=== PATIENT | female | born 1935 | race Hispanic/Latino ===

== ENCOUNTER 2017-09-06 23:05 | Inpatient (IN) | payer MEDICARE ==
[2017-09-06 23:12] VITALS: BMI 32.4
[2017-09-06] MEDS ORDERED: Sodium Chloride 0.9% 1,000 ML IV STA (23:28)
--- NOTE | 2017-09-06 23:29 | ED PDOC ---
Arrival/HPI - General Chief Complaint: Abdominal Pain Time Seen by Provider: 09/06/17 23:14 Historian: Patient - History of Present Illness Narrative History of Present Illness (Text): 09/06/17 23:28 Lola Hoffman is an 81 year old female, whose past medical history includes hypertension and hysterectomy, who presents to the Emergency department complaining of abdominal pain. Patient states she has been experiencing RUQ pain since 18:30 today. Patient denies any fever, chills, chest pain, shortness of breath, nausea, vomiting, diarrhea, urinary symptoms, back pain, neck pain, headache, dizziness, or any other complaints. PMD: Dr. Johnson Time/Duration: 4-6 hours (18:30) Symptom Onset: Gradual Symptom Course: Unchanged Activities at Onset: Light Context: Home Past Medical History - Provider Review Nursing Documentation Reviewed: Yes - Cardiac Hx Hypertension: Yes - Pulmonary Hx Respiratory Disorders: No - Neurological Hx Neurological Disorder: No - HEENT Hx HEENT Disorder: No - Renal Hx Renal Disorder: No - Endocrine/Metabolic Hx Endocrine Disorders: No - Hematological/Oncological Hx Blood Disorders: No - Integumentary Hx Dermatological Disorder: No - Musculoskeletal/Rheumatological Hx Musculoskeletal Disorders: No - Gastrointestinal Hx Gastrointestinal Disorders: No - Genitourinary/Gynecological Hx Genitourinary Disorders: No - Psychiatric Hx Psychophysiologic Disorder: No Hx Substance Use: No - Surgical History Hx Hysterectomy: Yes Other/Comment: cyst from ovary Family/Social History - Physician Review Nursing Documentation Reviewed: Yes Family/Social History: Unknown Family HX Smoking Status: Never Smoked Hx Alcohol Use: No Hx Substance Use: No Allergies/Home Meds Allergies/Adverse Reactions: Allergies alendronate sodium [From Fosamax] Allergy (Verified 09/06/17 23:22) VOMITING Home Medications: Home Meds Medication Instructions Recorded Confirmed Lisinopril [Zestril] 10 mg PO CONT 09/06/17 09/06/17 amLODIPine [Norvasc] 10 mg PO DAILY 09/06/17 09/06/17 Review of Systems - Physician Review All systems were reviewed & negative as marked: Yes - Review of Systems Constitutional: Normal. absent: Fevers Eyes: Normal ENT: Normal Respiratory: Normal. absent: SOB, Cough Cardiovascular: Normal. absent: Chest Pain Gastrointestinal: Abdominal Pain. absent: Vomiting Genitourinary Female: Normal. absent: Dysuria, Frequency, Hematuria, Urine Output Changes Musculoskeletal: Normal. absent: Back Pain, Neck Pain Skin: Normal. absent: Rash Neurological: Normal. absent: Headache, Dizziness Endocrine: Normal Hemo/Lymphatic: Normal Psychiatric: Normal Physical Exam Vital Signs Reviewed: Yes Vital Signs Temp Pulse Resp BP Pulse Ox 09/07/17 01:56 111 H 17 144/67 97 09/06/17 23:13 97.7 F 88 18 169/84 H 98 Temperature: Afebrile Blood Pressure: Hypertensive Pulse: Regular Respiratory Rate: Normal Appearance: Positive for: Well-Appearing, Non-Toxic, Comfortable Pain Distress: None Mental Status: Positive for: Alert and Oriented X 3 - Systems Exam Head: Present: Atraumatic, Normocephalic Pupils: Present: PERRL Extroacular Muscles: Present: EOMI Conjunctiva: Present: Normal Mouth: Present: Moist Mucous Membranes Neck: Present: Normal Range of Motion Respiratory/Chest: Present: Clear to Auscultation, Good Air Exchange. No: Respiratory Distress, Accessory Muscle Use Cardiovascular: Present: Regular Rate and Rhythm, Normal S1, S2. No: Murmurs Abdomen: Present: Tenderness (RUQ tenderness), Normal Bowel Sounds. No: Distention, Peritoneal Signs Back: Present: Normal Inspection Upper Extremity: Present: Normal Inspection. No: Cyanosis, Edema Lower Extremity: Present: Normal Inspection. No: Edema Neurological: Present: GCS=15, CN II-XII Intact, Speech Normal Skin: Present: Warm, Dry, Normal Color. No: Rashes Psychiatric: Present: Alert, Oriented x 3, Normal Insight, Normal Concentration Medical Decision Making ED Course and Treatment: 09/06/17 23:28 Impression: 81 year old female complaining of RUQ pain since 18:30. Differential Diagnosis included but are not limited to: cholecystitis vs. biliary colic vs. gastritis Plan: -- EKG -- CT Abdomen and Pelvis with IV contrast -- Labs, cardiac enzymes, lipase, blood cultures -- Urinalysis -- IV fluids -- Pepcid -- Protonix -- Zofran -- Reassess and disposition Progress Notes: 09/07/17 01:01 Reviewed EKG, sinus tachycardia at [address]pm[address] LAD. Non-specific ST/T wave changes. 09/07/17 02:54 CT Abdomen and Pelvis shows: Lower thorax: Minimal atelectasis/scarring. Coronary artery calcifications. Elevated RIGHT hemidiaphragm. Moderate-sized hiatal hernia. ABDOMEN: Liver: Probable mild fatty infiltration. Minimal intrahepatic ductal dilatation. Gallbladder and bile ducts: Gallbladder distention. Gallstone. Borderline dilatation of common bile duct. Pancreas: No ductal dilation. No mass. Spleen: No splenomegaly. Adrenals: No mass. Kidneys and ureters: Few probable renal cysts. Few too small to characterize lesions within kidneys. No hydronephrosis. Stomach and bowel: Apparent mild mural thickening of proximal duodenum. No associated inflammatory stranding. Duodenal diverticulum. diverticula within sigmoid colon. No associated inflammatory stranding. Mild mural thickening vs underdistention of ascending, transverse, descending, sigmoid colon. No associated inflammatory stranding. No obstruction. Appendix: No findings to suggest acute appendicitis. PELVIS: Bladder: Unremarkable. Reproductive: Hysterectomy. ABDOMEN and PELVIS: Intraperitoneal space: No significant fluid collection. No free air. Bones/joints: Degenerative changes and scoliosis of spine. Hemangioma within spine. No acute fracture. Soft tissues: Tiny umbilical hernia containing fat. Vasculature: [id number] atherosclerotic disease. No aneurysm. Lymph nodes: No pathologically enlarged lymph nodes. IMPRESSION: 1. Gallbladder distention with cholelithiasis. Minimal/borderline ductal dilatation. Suggest ultrasound. 2. Possible mild duodenitis. Clinical correlation is needed. 3. Mild colitis vs underdistention. Clinical correlation is needed. 4. Incidental/non-acute findings are described above. 09/07/17 03:[address] Gan, who is aware and agrees with plan. Accepts pt in to her service. Pt admitted to [facility] for cholecystitis Requests Dr. Cervantes on consult. residential building inspector notified. 09/07/17 03:12 Case discussed with surgical dental assistant medical receptionist, who is aware and agrees with plan. - Lab Interpretations Lab Results: 09/06/17 23:30 09/06/17 23:30 Lab Results 09/07/17 00:28: Urine Color Yellow, Urine Appearance Clear, Urine pH 7.0, Ur Specific [place] 1.015, Urine Protein Negative, Urine Glucose (UA) 100 H, Urine Ketones Trace H, Urine Blood Negative, Urine Nitrate Negative, Urine Bilirubin Negative, Urine Urobilinogen 2.0 H, Ur Leukocyte Esterase Negative 09/06/17 23:30: Sodium 142, Potassium 4.1, Chloride 104, Carbon Dioxide 23, Anion Gap 18, BUN 13, Creatinine 0.5 L, Est GFR ( Amer) > 60, Est GFR ( Non-Af Amer) > 60, Random Glucose 192 H, Calcium 9.5, Total Bilirubin 1.7 H, AST 191 H, ALT 138 H, Alkaline Phosphatase 227 H, Lactate Dehydrogenase 940 H, Total Creatine Kinase 40, Troponin I < 0.01, Total Protein 7.9, Albumin 4.5, Globulin 3.4, Albumin/Globulin Ratio 1.3, Amylase 115, Lipase 139 09/06/17 23:30: PT 10.9, INR 0.96, APTT 30.4 09/06/17 23:30: WBC 23.3 H, RBC 4.92, Hgb 14.9, Hct 44.5, MCV 90.4, MCH 30.3, MCHC 33.5, RDW 12.9, Plt Count 176, MPV 10.9, Gran % 58.6, Lymph % (Auto) 38.3 H , [place] % (Auto) 2.9, Eos % (Auto) 0.0 L, Baso % (Auto) 0.2, Gran # 13.62 H, Lymph # (Auto) 8.9 H, [place] # (Auto) 0.7 H, Eos # (Auto) 0.0, Baso # (Auto) 0.04 I have reviewed the lab results: Yes - RAD Interpretation Radiology Orders: 09/07/17 00:16 ABD & PELVIS IV CONTRAST ONLY [CT] Stat Supervising Law Enforcement Analyst: Radiologist - EKG Interpretation Interpreted by ED Physician: Yes Type: 12 lead EKG - Medication Orders Current Medication Orders: Acetaminophen (Tylenol 325mg Tab) 650 mg PO Q4H PRN PRN Reason: Fever >100.5 F Lactated Ringer's (Lactated Ringer's) 1,000 mls @ 100 mls/hr IV .Q10H MATEO Last Admin: 09/07/17 04:44 Dose: 100 mls/hr eMAR Start Stop Document 09/07/17 04:44 AP (Rec: 09/07/17 04:44 AP [email or web address]) Intravenous Solution Start Date 09/07/17 Start Time 04:44 Metronidazole (Flagyl) 250 mg in 50 mls @ 100 mls/hr IV Q8 MATEO PRN Reason: Protocol Stop: 09/12/17 14:01 Last Admin: 09/07/17 13:40 Dose: 100 mls/hr eMAR Start Stop Document 09/07/17 13:40 [facility] (Rec: 09/07/17 13:41 [facility] [id number]) Intravenous Solution Start Date 09/07/17 Start Time 14:30 End Date 09/07/17 End time 15:00 Total Infusion Time 30 Ceftriaxone Sodium (Rocephin 1 Gram Ivpb) 1 gm in 100 mls @ 100 mls/hr IVPB DAILY MATEO PRN Reason: Protocol Stop: 09/11/17 10:59 Last Admin: 09/07/17 13:18 Dose: 100 mls/hr eMAR Start Stop Document 09/07/17 13:18 [facility] (Rec: 09/07/17 13:19 [facility] [id number]) Intravenous Solution Start Date 09/07/17 Start Time 13:19 End Date 09/07/17 End time 14:30 Total Infusion Time 71 Morphine Sulfate (Morphine) 2 mg IVP Q4H PRN PRN Reason: Pain, moderate (4-7) Ondansetron HCl (Zofran Inj) 4 mg IVP Q4H PRN PRN Reason: Nausea/Vomiting Pantoprazole Sodium (Protonix Inj) 40 mg IVP DAILY [facility] Last Admin: 09/07/17 10:19 Dose: 40 mg IVP Administration Document 09/07/17 10:19 BIR (Rec: 09/07/17 10:19 [facility] [id number]) Charges for Administration # of IVP Administrations 1 Discontinued Medications Famotidine (Pepcid) 20 mg IVP STAT STA Stop: 09/06/17 23:29 Last Admin: 09/07/17 00:22 Dose: 20 mg IVP Administration Document 09/07/17 00:22 CNR (Rec: 09/07/17 00:22 CNR [facility] [id number]) Charges for Administration # of IVP Administrations 1 Sodium Chloride (Sodium Chloride 0.9%) 1,000 mls @ 100 mls/hr IV .Q10H STA Stop: 09/07/17 09:27 Last Admin: 09/07/17 00:21 Dose: 100 mls/hr eMAR Start Stop Document 09/07/17 00:21 CNR (Rec: 09/07/17 00:21 CNR [facility] [id number]) Intravenous Solution Start Date 09/07/17 Start Time 00:21 Metronidazole (Flagyl) 500 mg in 100 mls @ 100 mls/hr IVPB STAT STA PRN Reason: Protocol Stop: 09/07/17 01:52 Last Admin: 09/07/17 02:30 Dose: 100 mls/hr eMAR Start Stop Document 09/07/17 02:30 CNR (Rec: 09/07/17 02:30 CNR [facility] [id number]) Intravenous Solution Start Date 09/07/17 Start Time 02:30 End Date 09/07/17 End time 03:30 Total Infusion Time 60 Piperacillin Sod/Tazobactam Sod (Zosyn 3.375 In Ns 100ml) 100 mls @ 200 mls/hr IVPB STAT STA PRN Reason: Protocol Stop: 09/07/17 01:22 Last Admin: 09/07/17 01:21 Dose: 200 mls/hr eMAR Start Stop Document 09/07/17 01:21 CNR (Rec: 09/07/17 01:22 CNR [facility] [id number]) Intravenous Solution Start Date 09/07/17 Start Time 01:21 End Date 09/07/17 End time 01:51 Total Infusion Time 30 Piperacillin Sod/Tazobactam Sod (Zosyn 3.375 In Ns 100ml) 100 mls @ 200 mls/hr IVPB Q6 MATEO PRN Reason: Protocol Stop: 09/07/17 12:29 Last Admin: 09/07/17 13:11 Dose: 200 mls/hr eMAR Start Stop Document 09/07/17 13:11 BIR (Rec: 09/07/17 13:12 BIR [id number]) Intravenous Solution Start Date 09/07/17 Start Time 13:12 End Date 09/07/17 Morphine Sulfate (Morphine) 2 mg IVP STAT STA Stop: 09/07/17 00:54 Last Admin: 09/07/17 01:20 Dose: 2 mg IVP Administration Document 09/07/17 01:20 CNR (Rec: 09/07/17 01:21 CNR [facility] [id number]) Charges for Administration # of IVP Administrations 1 Morphine Sulfate (Morphine) 2 mg IVP Q4H PRN PRN Reason: Pain, moderate (4-7) Ondansetron HCl (Zofran Inj) 4 mg IVP STAT STA Stop: 09/06/17 23:29 Last Admin: 09/07/17 00:22 Dose: 4 mg IVP Administration Document 09/07/17 00:22 CNR (Rec: 09/07/17 00:22 CNR [facility] [id number]) Charges for Administration # of IVP Administrations 1 Pantoprazole Sodium (Protonix Inj) 40 mg IVP ONCE STA Stop: 09/06/17 23:30 Last Admin: 09/07/17 00:21 Dose: 40 mg IVP Administration Document 09/07/17 00:21 CNR (Rec: 09/07/17 00:22 CNR [facility] [id number]) Charges for Administration # of IVP Administrations 1 - Scribe Statement The provider has reviewed the documentation as recorded by the Yaakov Lugo Provider Scribe Attestation: All medical record entries made by the Scribe were at my direction and personally dictated by me. I have reviewed the chart and agree that the record accurately reflects my personal performance of the history, physical exam, medical decision making, and the department course for this patient. I have also personally directed, reviewed, and agree with the discharge instructions and disposition. Disposition/Present on Arrival - Present on Arrival Any Indicators Present on Arrival: No History of DVT/PE: No History of Uncontrolled Diabetes: No Urinary Catheter: No History of Decub. Ulcer: No History Surgical Site Infection Following: None - Disposition Have Diagnosis and Disposition been Completed?: Yes Diagnosis: Cholecystitis with cholelithiasis Disposition: HOSPITALIZED Disposition Time: 03:10 Condition: FAIR
[2017-09-06 23:54] LABS: BASO # 0.04 K/mm3 (0.0-2.0); BASO % 0.2 % (0.0-3.0); GRAN # 13.62 (1.4-6.5); GRAN % 58.6 % (50.0-68.0); HEMOGLOBIN 14.9 g/dL (12.0-16.0); LYMPH # 8.9 (1.2-3.4); LYMPH % 38.3 % (22.0-35.0); MEAN CELL VOLUME 90.4 fl (80.0-105.0); MEAN CORPUSCULAR HEMOGLOBIN 30.3 pg (25.0-35.0); MEAN CORPUSCULAR HGB CONC 33.5 g/dl (31.0-37.0); MEAN PLATELET VOLUME 10.9 fl (7.0-11.0); MONO # 0.7 (0.1-0.6); MONO % 2.9 % (1.0-6.0); RBC 4.92 10^6/uL (3.5-6.1); RED CELL DISTRIBUTION WIDTH 12.9 % (11.5-14.5); WHITE BLOOD COUNT 23.3 10^3/ul (4.5-11.0)
[2017-09-07 00:06] LABS: PROTHROMBIN TIME 10.9 SECONDS (9.4-12.5)
[2017-09-07 00:07] LABS: INR 0.96 (0.93-1.08); PARTIAL THROMBOPLASTIN TIME 30.4 Seconds (25.1-36.5)
[2017-09-07 00:15] LABS: ALB/GLOB RATIO 1.3 (1.1-1.8); ALBUMIN 4.5 g/dL (3.0-4.8); ALT/SGPT 138 U/L (7-56); AMYLASE 115 U/L (35-125); AST/SGOT 191 U/L (14-36); BLOOD UREA NITROGEN 13 mg/dL (7-21); CALCIUM 9.5 mg/dL (8.4-10.5); GFR AFRICAN-AMERICAN > 60; GFR NON-AFRICAN AMERICAN > 60; LIPASE 139 U/L (23-300)
[2017-09-07 00:20] LABS: TROPONIN I < 0.01 ng/mL
[2017-09-07] MEDS ORDERED: Iohexol 350 MG/100 ML VIAL ONE (00:49)
[2017-09-07] MEDS ORDERED: metroNIDAZOLE IV 500 mg/100 ml 500 MG/100 ML BAG IVPB STA (00:53)
[2017-09-07] MEDS ORDERED: Morphine 5 MG/ML SYRINGE IVP STA (00:53)
[2017-09-07] MEDS ORDERED: Piperacillin/Tazobact 3.375 gm 100 ML IVPB STA (00:53)
[2017-09-07 01:52] LABS: URINE BILIRUBIN NEGATIVE (NEGATIVE); URINE BLOOD NEGATIVE (NEGATIVE); URINE GLUCOSE (UA) 100 mg/dL (NEGATIVE); URINE LEUKOCYTE ESTERASE NEGATIVE Leu/uL (NEGATIVE); URINE NITRATE NEGATIVE (NEGATIVE); URINE PROTEIN NEGATIVE mg/dL (<30 mg/dL)
[2017-09-07 02:03] LABS: URINE COLOR YELLOW (YELLOW)
[2017-09-07 02:04] LABS: URINE APPEARANCE CLEAR (CLEAR)
--- NOTE | 2017-09-07 02:37 | CT ---
EXAM: CT Abdomen and Pelvis With Intravenous Contrast CLINICAL HISTORY: 81 years old, female; Pain; Abdominal pain; Epigastric; Patient HX: HX of gallstones; Additional info: Ruq pain TECHNIQUE: Axial computed tomography images of the abdomen and pelvis with intravenous contrast. All CT scans at this facility use one or more dose reduction techniques, viz.: automated exposure control; ma/kV adjustment per patient size (including targeted exams where dose is matched to indication; i.e. head); or iterative reconstruction technique. Coronal and sagittal reformatted images were created and reviewed. CONTRAST: 100 mL of omnipaque 350 administered intravenously. COMPARISON: US - RENAL 2015-12-12 16:09 FINDINGS: Lower thorax: Minimal atelectasis/scarring. Coronary artery calcifications. Elevated RIGHT hemidiaphragm. Moderate-sized hiatal hernia. ABDOMEN: Liver: Probable mild fatty infiltration. Minimal intrahepatic ductal dilatation. Gallbladder and bile ducts: Gallbladder distention. Gallstone. Borderline dilatation of common bile duct. Pancreas: No ductal dilation. No mass. Spleen: No splenomegaly. Adrenals: No mass. Kidneys and ureters: Few probable renal cysts. Few too small to characterize lesions within kidneys. No hydronephrosis. Stomach and bowel: Apparent mild mural thickening of proximal duodenum. No associated inflammatory stranding. Duodenal diverticulum. diverticula within sigmoid colon. No associated inflammatory stranding. Mild mural thickening vs underdistention of ascending, transverse, descending, sigmoid colon. No associated inflammatory stranding. No obstruction. Appendix: No findings to suggest acute appendicitis. PELVIS: Bladder: Unremarkable. Reproductive: Hysterectomy. ABDOMEN and PELVIS: Intraperitoneal space: No significant fluid collection. No free air. Bones/joints: Degenerative changes and scoliosis of spine. Hemangioma within spine. No acute fracture. Soft tissues: Tiny umbilical hernia containing fat. Vasculature: [id number] atherosclerotic disease. No aneurysm. Lymph nodes: No pathologically enlarged lymph nodes. IMPRESSION: 1. Gallbladder distention with cholelithiasis. Minimal/borderline ductal dilatation. Suggest ultrasound. 2. Possible mild duodenitis. Clinical correlation is needed. 3. Mild colitis vs underdistention. Clinical correlation is needed. 4. Incidental/non-acute findings are described above.
[2017-09-07] MEDS ORDERED: Sodium Chloride 0.9% 1,000 ML IV STA (03:11)
[2017-09-07] MEDS ORDERED: Morphine 5 MG/ML SYRINGE IVP PRN (03:12)
--- NOTE | 2017-09-07 04:04 | US ---
EXAM: US Abdomen Complete CLINICAL HISTORY: 81 years old, female; Pain; Abdominal pain; Other: Ruq; Additional info: Cholelithiasis, ruq abdominal pain TECHNIQUE: Real-time ultrasound of the abdomen (complete) with image documentation. COMPARISON: US - RENAL 2015-12-12 16:09Liver: Fatty infiltration. FINDINGS: Liver: Fatty infiltration. No mass. No intrahepatic ductal dilatation. Gallbladder: Gallstone. 0.4 cm wall thickness. Minimal pericholecystic fluid. No sonographic Lambert's sign. Common bile duct: No dilatation. No stones. Pancreas: Unremarkable as visualized. Kidneys: Normal echogenicity. Few cysts, largest up to 4.2 cm. No hydronephrosis. Spleen: No splenomegaly. Aorta: Obscured by overlying bowel gas. Inferior vena cava: Unremarkable. IMPRESSION: 1. Cholelithiasis with mild gallbladder wall thickening and minimal pericholecystic fluid concerning for acute cholecystitis. Clinical correlation is needed. Consider scintigraphy. 2. Incidental/non-acute findings are described above.
--- NOTE | 2017-09-07 04:06 | CP.PCM.CON ---
History of Present Illness - History of Present Illness History of Present Illness: Patient is an 81F with PMH of HTN, HLD, and osteoporosis and PSH of hysterectomy and oopherectomy who presented to ED with BL upper abdominal pain, nausea and vomiting several hours in duration with witnessed episode of non- bilious emesis in the ER. Pain is described as cramping gas pain with associated right mid-back pain. Patient states it started shortly after eating greasy food. Patient denies hematemesis, melena, hematochezia, diarrhea, fevers , chills, SOB, CP, dysuria, or hematuria. Patient had 3 regular BM's yesterday though she normally is constipated with 1-2BM's per week. Patient states this is the first time she has had these symptoms but she had an ultrasound in the past that showed an asymptomatic small gallbladder stone. Patient denies any abdominal pain, nausea, or vomiting currently after morphine, zofran, pepcid, and protonix administration. Review of Systems - Review of Systems All systems: reviewed and no additional remarkable complaints except Past Patient History - Past Medical History & Family History Past Medical History?: Yes - Past Social History Smoking Status: Never Smoked - CARDIAC Hx Hypercholesterolemia: Yes Hx Hypertension: Yes - PULMONARY Hx Respiratory Disorders: No - NEUROLOGICAL Hx Neurological Disorder: No - HEENT Hx HEENT Problems: No - RENAL Hx Chronic Kidney Disease: No - ENDOCRINE/METABOLIC Hx Endocrine Disorders: No - HEMATOLOGICAL/ONCOLOGICAL Hx Blood Disorders: No - INTEGUMENTARY Hx Dermatological Problems: No - MUSCULOSKELETAL/RHEUMATOLOGICAL Hx Musculoskeletal Disorders: No Hx Osteoporosis: Yes - GASTROINTESTINAL Hx Gastrointestinal Disorders: No - GENITOURINARY/GYNECOLOGICAL Hx Genitourinary Disorders: Yes Other/Comment: ovarian cyst - PSYCHIATRIC Hx Psychophysiologic Disorder: No Hx Substance Use: No - SURGICAL HISTORY Hx Surgeries: Yes Hx Breast Biopsy: Yes Hx Hysterectomy: Yes Other/Comment: BL oopherectomy Meds Allergies/Adverse Reactions: Allergies Allergy/AdvReac Type Severity Reaction Status Date / Time alendronate sodium Allergy VOMITING Verified 09/06/17 23:22 [From Fosamax] - Medications Medications: Current Medications Acetaminophen (Tylenol 325mg Tab) 650 mg PO Q4H PRN PRN Reason: Fever >100.5 F Sodium Chloride (Sodium Chloride 0.9%) 1,000 mls @ 100 mls/hr IV .Q10H STA Stop: 09/07/17 09:27 Last Admin: 09/07/17 00:21 Dose: 100 mls/hr Sodium Chloride (Sodium Chloride 0.9%) 1,000 mls @ 100 mls/hr IV .Q10H STA Stop: 09/07/17 13:10 Morphine Sulfate (Morphine) 2 mg IVP Q4H PRN PRN Reason: Pain, moderate (4-7) Ondansetron HCl (Zofran Inj) 4 mg IVP Q4H PRN PRN Reason: Nausea/Vomiting Physical Exam - Constitutional Appears: Well, No Acute Distress - Head Exam Head Exam: ATRAUMATIC, NORMOCEPHALIC - Eye Exam Eye Exam: Normal appearance. absent: Conjunctival injection, Scleral icterus - ENT Exam ENT Exam: Mucous Membranes Moist, Normal Oropharynx - Respiratory Exam Respiratory Exam: Clear to Auscultation Bilateral, NORMAL BREATHING PATTERN. absent: Accessory Muscle Use - Cardiovascular Exam Cardiovascular Exam: RRR - GI/Abdominal Exam GI & Abdominal Exam: Soft. absent: Distended, Rebound, Tenderness Additional comments: negative hinton's sign - Extremities Exam Extremities exam: Positive for: pedal pulses present. Negative for: calf tenderness, pedal edema - Neurological Exam Neurological exam: Alert, Oriented x3 - Psychiatric Exam Psychiatric exam: Normal Affect, Normal Mood - Skin Skin Exam: Dry, Intact, Normal Color, Warm Results - Vital Signs Recent Vital Signs: Last Vital Signs Temp 97.7 F 09/06/17 23:13 Pulse 111 H 09/07/17 01:56 Resp 17 09/07/17 01:56 BP 144/67 09/07/17 01:56 Pulse Ox 97 09/07/17 01:56 - Labs Result Diagrams: 09/06/17 23:30 09/06/17 23:30 - Imaging and Cardiology CT scan - abdomen Status: Image reviewed by me, Report reviewed by me US - abdomen Status: Image reviewed by me, Report reviewed by me Assessment & Plan - Assessment and Plan (Free Text) Assessment: 81F with acute cholecystitis, r/o choledocholithiasis -Abd US: small amount of pericholecystic fluid, mild wall thickening, large gallstone, CBD wnl -CT abd/pelvis: distended gallbladder with large stone, mild gastritis/ duodenitis, possible colitis -T Bili 1.7, AST 197, ALT 138, Alk phos: 227 Plan: -Repeat CBC/CMP this AM -possible MRCP to r/o choledocholithiaisis -NPO -IVF -PRN pain and nausea medications -IV abx -SCD's, incentive spirometer Further recommendations per Dr. Billy Mccord PGY2
[2017-09-07] MEDS: Lactated Ringer's 1,000 ML IV SCH ×2 (04:44→21:51)
[2017-09-07] MEDS: Piperacillin/Tazobact 3.375 gm 100 ML IVPB SCH ×2 (05:05→13:11)
[2017-09-07 07:49] LABS: BASO # 0.02 K/mm3 (0.0-2.0); BASO % 0.1 % (0.0-3.0); GRAN # 17.63 (1.4-6.5); GRAN % 68.6 % (50.0-68.0); HEMOGLOBIN 12.7 g/dL (12.0-16.0); LYMPH % 27.3 % (22.0-35.0); MEAN CELL VOLUME 90.2 fl (80.0-105.0); MEAN CORPUSCULAR HEMOGLOBIN 29.7 pg (25.0-35.0); MEAN CORPUSCULAR HGB CONC 32.9 g/dl (31.0-37.0); MEAN PLATELET VOLUME 9.8 fl (7.0-11.0); RBC 4.28 10^6/uL (3.5-6.1)
[2017-09-07 07:57] LABS: WHITE BLOOD COUNT 25.7 10^3/ul (4.5-11.0)
[2017-09-07 08:02] LABS: ALB/GLOB RATIO 1.3 (1.1-1.8); ALBUMIN 3.5 g/dL (3.0-4.8); ALT/SGPT 280 U/L (7-56); AST/SGOT 406 U/L (14-36); BLOOD UREA NITROGEN 10 mg/dL (7-21); CALCIUM 8.8 mg/dL (8.4-10.5); GFR AFRICAN-AMERICAN > 60; GFR NON-AFRICAN AMERICAN > 60; MAGNESIUM 1.9 mg/dL (1.7-2.2)
--- NOTE | 2017-09-07 10:21 | RAD ---
PROCEDURE: CHEST RADIOGRAPH, 1 VIEW HISTORY: pain COMPARISON: None available. FINDINGS: LUNGS: Clear. PLEURA: No pneumothorax or pleural fluid seen. CARDIOVASCULAR: Normal. OSSEOUS STRUCTURES: No significant abnormalities. VISUALIZED UPPER ABDOMEN: Normal. OTHER FINDINGS: None. IMPRESSION: No active disease.
--- NOTE | 2017-09-07 13:14 | CP.PCM.PCO ---
Physician Communication Note - Physician Communication Note Physician Communication Note: Severe PUD/HIDA-MRCP pending/Cons Rx for now
[2017-09-07] MEDS: cefTRIAXone 1 gm 1 GM/100 ML BAG IVPB SCH (13:18)
[2017-09-07] MEDS: metroNIDAZOLE IV 250mg/50 ml 250 MG/50 ML BAG IV SCH ×2 (13:40→21:51)
--- NOTE | 2017-09-07 13:43 | MRI ---
PROCEDURE: Magnetic Resonance Cholangiopancreatography HISTORY: Rule out common duct stone COMPARISON: None available. TECHNIQUE: Multiplanar, multisequence MR images of the abdomen were obtained, including heavily T2 weighted MRCP images of the biliary system. Rotating maximum intensity projection images of the biliary system were generated. FINDINGS: MRCP: The common bile duct is of a normal caliber. No evidence of choledocholithiasis. No intrahepatic biliary ductal dilatation. LIVER: Mild fatty infiltration of the liver GALLBLADDER: There is a large 17 mm gallstone. There is some fluid surrounding the gallbladder. Findings are suspicious for cholecystitis. SPLEEN: Unremarkable. PANCREAS: Unremarkable. ADRENALS: Unremarkable. KIDNEYS: Unremarkable. AORTA: No aneurysm. ASCITES: None. OTHER FINDINGS: None. IMPRESSION: Large gallstone with fluid surrounding the gallbladder suspicious for cholecystitis. No evidence of common duct stone
--- NOTE | 2017-09-07 16:14 | NM ---
PROCEDURE: Nuclear Medicine Hepatobiliary Scan HISTORY: r/o cystic duct obstruction COMPARISON: None available. TECHNIQUE: 5.0 mCi of technetium 99m Mebrofenin was administered intravenously. Planar images of the abdomen were obtained at 5 min intervals to 60 mins. Delayed images were also obtained. FINDINGS: LIVER: Timely and homogenous uptake. There is no biliary excretion. The common duct is not visualized and there is no visualization of the small bowel. The findings are suspicious for hepatocellular disease. The MRCP study obtained on the same day showed no evidence of common duct obstruction or biliary dilatation IMPRESSION: Nonvisualization of the biliary ducts most likely due to hepatocellular disease
[2017-09-07] MEDS ORDERED: Morphine 2 mg/ml ISec IVP PRN (17:34)
--- NOTE | 2017-09-07 18:08 | CARD ---
APPROVED REPORT EKG Measurement Heart [id number] <Conclusion> Sinus tachycardia Left axis deviation Low voltage QRS Inferior infarct, age undetermined Cannot rule out Anterior infarct, age undetermined Abnormal ECG
--- NOTE | 2017-09-07 23:38 | HP ---
HISTORY OF PRESENT ILLNESS: The patient is 81 years old. The patient of Dr. Johnson. She states yesterday morning she woke up with pain extending from her epigastrium down to the midabdomen. She felt nauseous, vomited twice. She states she never experienced this pain, so she ended up coming to the hospital for further evaluation. She vomited once in the emergency room also. Denies any fever or chills. No hemoptysis. No hematemesis. No rectal bleeding. Denies any chest pain. No shortness of breath. PAST MEDICAL HISTORY: Significant for; 1. Hypertension. 2. Hyperlipidemia. PAST SURGICAL HISTORY: Significant for hysterectomy and oophorectomy. ALLERGIES: SHE IS ALLERGIC TO ALENDRONATE. MEDICATIONS AT HOME: She is on amlodipine 10 mg daily and lisinopril 10 mg daily. SOCIAL HISTORY: She lives with her family. Denies smoking, drinking or alcohol use. REVIEW OF SYSTEMS: Currently, she complains of feeling thirsty and wants to eat something. PHYSICAL EXAMINATION: GENERAL: She is awake, alert, oriented, communicative. VITAL SIGNS: She is afebrile, pulse 114, respirations 20, blood pressure 149/76. LUNGS: Bilateral fair airflow. No rhonchi or crackle. HEART: S1, S2 audible. ABDOMEN: Soft. No rebound or guarding. NEUROLOGICAL: The patient is awake and alert. Able to communicate. LABORATORY EXAM: WBC is 25.7, hemoglobin 12.7, hematocrit 38.6, platelet 180. Chemistry: Sodium 143, potassium 3.9, chloride 109, CO2 of 22, BUN 10, creatinine 0.6, blood sugar of 173. Her AST 406, ALT 280, alk phos is 174. She had abdominal sonogram done that shows cholelithiasis with mild gallbladder wall thickening and minimal pericholecystic fluid, concerning acute cholecystitis. She had CT scan of the abdomen and pelvis done that shows ascending gallbladder with cholelithiasis, possible mild duodenitis. MRCP is pending. X-ray chest is negative. ASSESSMENT: 1. Acute cholecystitis. 2. Cholelithiasis. 3. Hypertension. 4. Hyperlipidemia. PLAN: We will keep the patient n.p.o., given her IV fluid, IV antibiotic. I will consult Dr. Bradford and Dr. Eleazar Cervantes has been consulted. Awaiting HIDA scan to decide further. The patient is eventually going to need cholecystectomy. Lillian Gan MD
[2017-09-08] MEDS: Lactated Ringer's 1,000 ML IV SCH ×2 (00:45→21:42)
[2017-09-08] MEDS: metroNIDAZOLE IV 250mg/50 ml 250 MG/50 ML BAG IV SCH ×3 (05:19→21:40)
--- NOTE | 2017-09-08 07:15 | CP.PCM.CON ---
<Lala Soto - Last Filed: 09/08/17 14:23> History of Present Illness - History of Present Illness History of Present Illness: Gi consult note for Dr Bradford's service Reason for consult: Cholelithiasis Patient is an 81 y/o with pmh of htn, hld and osteoporosis who presented with bilateral upper quadrant abdominal pain, nausea and vomiting on Thursday. GI is being consulted to rule out choledocholithiasis. Patient states the abdominal pain started on Thursday while she was sitting down. Denies prior histories of similar pain. States the pain was constant, located on bilateral upper quadrant of the abdomen and was radiating to the chest. Though it was [place], thus patient took 2 tabs of asa with no relief. States she vomited twice on Thursday prior to presenting to the ED, it was non bloody and non bilious. Denies fever or chills. No vomiting since admission. States she has chronic constipation, since childhood, has bowel movement once a week. Never used laxatives, and denies straining. Patient states she has never had colonoscopy or EGD. Currently the abdominal pain has improved, no nausea, vomiting or diarrhea. No fever or chills. Denies recent weight loss. Denies prior history of liver disease. States she was told she had gallbladder stone 2 years ago. PMHx: htn, hld and osteoporosis PSHx: Ovarian cyst removal, hysterectomy FMHx: sister with breast cancer, brothers with CAD Social: Denies tobacco, alcohol or illicit drug use. Allergy: alendronate hOME MEDS: ASA, lisinopril, Norvasc ad crestor. Review of Systems - Review of Systems All systems: reviewed and no additional remarkable complaints except Review of Systems: 12 point ROS reviewed, all negative except as per HPI. Past Patient History - Past Medical History & Family History Past Medical History?: Yes - Past Social History Smoking Status: Never Smoked Alcohol: None Drugs: Denies Home Situation {Lives}: Alone - CARDIAC Hx Hypertension: Yes - PULMONARY Hx Respiratory Disorders: No - NEUROLOGICAL Hx Neurological Disorder: No - HEENT Hx HEENT Problems: No - RENAL Hx Chronic Kidney Disease: No - ENDOCRINE/METABOLIC Hx Endocrine Disorders: No - HEMATOLOGICAL/ONCOLOGICAL Hx Blood Disorders: No - INTEGUMENTARY Hx Dermatological Problems: No - MUSCULOSKELETAL/RHEUMATOLOGICAL Hx Musculoskeletal Disorders: No - GASTROINTESTINAL Hx Gastrointestinal Disorders: No - GENITOURINARY/GYNECOLOGICAL Hx Genitourinary Disorders: No - PSYCHIATRIC Hx Psychophysiologic Disorder: No Hx Substance Use: No - SURGICAL HISTORY Hx Hysterectomy: Yes Other/Comment: cyst from ovary Meds Allergies/Adverse Reactions: Allergies Allergy/AdvReac Type Severity Reaction Status Date / Time alendronate sodium Allergy VOMITING Verified 09/06/17 23:22 [From Fosamax] - Medications Medications: Current Medications Acetaminophen (Tylenol 325mg Tab) 650 mg PO Q4H PRN PRN Reason: Fever >100.5 F Last Admin: 09/07/17 23:25 Dose: 650 mg Lactated Ringer's (Lactated Ringer's) 1,000 mls @ 100 mls/hr IV .Q10H [facility] Last Admin: 09/08/17 00:45 Dose: 100 mls/hr Metronidazole (Flagyl) 250 mg in 50 mls @ 100 mls/hr IV Q8 [facility] PRN Reason: Protocol Stop: 09/12/17 14:01 Last Admin: 09/08/17 05:19 Dose: 100 mls/hr Ceftriaxone Sodium (Rocephin 1 Gram Ivpb) 1 gm in 100 mls @ 100 mls/hr IVPB DAILY [facility] PRN Reason: Protocol Stop: 09/11/17 10:59 Last Admin: 09/07/17 13:18 Dose: 100 mls/hr Morphine Sulfate (Morphine) 2 mg IVP Q4H PRN PRN Reason: Pain, moderate (4-7) Ondansetron HCl (Zofran Inj) 4 mg IVP Q4H PRN PRN Reason: Nausea/Vomiting Pantoprazole Sodium (Protonix Inj) 40 mg IVP DAILY [facility] Last Admin: 09/07/17 10:19 Dose: 40 mg Physical Exam - Constitutional Appears: No Acute Distress - Head Exam Head Exam: ATRAUMATIC, NORMAL INSPECTION, NORMOCEPHALIC - Eye Exam Eye Exam: EOMI, Normal appearance, PERRL. absent: Scleral icterus Pupil Exam: NORMAL ACCOMODATION - ENT Exam ENT Exam: Mucous Membranes Moist - Neck Exam Neck exam: Positive for: Normal Inspection - Respiratory Exam Respiratory Exam: Clear to Auscultation Bilateral, NORMAL BREATHING PATTERN. absent: Rales, Rhonchi, Wheezes, Respiratory Distress, Stridor - Cardiovascular Exam Cardiovascular Exam: REGULAR RHYTHM, RRR, +S1, +S2. absent: Systolic Murmur - GI/Abdominal Exam GI & Abdominal Exam: Normal Bowel Sounds, Soft. absent: Distended, Firm, Guarding, Mass, Rebound, Rigid, Tenderness Additional comments: + Obese abdomen. - Extremities Exam Extremities exam: Positive for: normal inspection. Negative for: pedal edema, tenderness - Back Exam Back exam: NORMAL INSPECTION - Neurological Exam Neurological exam: Alert, Oriented x3 - Psychiatric Exam Psychiatric exam: Normal Affect, Normal Mood - Skin Skin Exam: Dry, Intact, Normal Color, Warm Results - Vital Signs Recent Vital Signs: Last Vital Signs Temp 99.7 F H 09/07/17 16:00 Pulse 94 H 09/07/17 16:00 Resp 19 09/07/17 16:00 BP 125/69 09/07/17 16:00 Pulse Ox 96 09/07/17 16:00 - Labs Result Diagrams: 09/08/17 07:30 09/08/17 07:30 Labs: Laboratory Results - last 24 hr 09/07/17 09/07/17 07:30 07:30 WBC 25.7 H* RBC 4.28 Hgb 12.7 D Hct 38.6 MCV 90.2 MCH 29.7 MCHC 32.9 RDW 13.0 Plt Count 180 MPV 9.8 Gran % 68.6 H Lymph % (Auto) 27.3 Stearns % (Auto) 4.0 Eos % (Auto) 0.0 L Baso % (Auto) 0.1 Gran # 17.63 H Lymph # (Auto) 7.0 H Stearns # (Auto) 1.0 H Eos # (Auto) 0.0 Baso # (Auto) 0.02 Sodium 143 Potassium 3.9 Chloride 109 H Carbon Dioxide 22 Anion Gap 16 BUN 10 Creatinine 0.6 L Est GFR ( Amer) > 60 Est GFR (Non-Af Amer) > 60 Random Glucose 173 H Calcium 8.8 Phosphorus 2.7 Magnesium 1.9 Total Bilirubin 2.6 H AST 406 H D ALT 280 H Alkaline Phosphatase 174 H D Total Protein 6.2 Albumin 3.5 Globulin 2.7 Albumin/Globulin Ratio 1.3 Assessment & Plan - Assessment and Plan (Free Text) Assessment: Patient is an 81 y/o with pmh of htn, hld and osteoporosis who presented with right upper quadrant abdominal pain, nausea and vomiting and was found to have transaminitis and was found have cholelithiasis suspicious for cholecystitis. Patient initially had CT abdomen and pelvis revealing cholelithaisis, colitis and mild duodenitis, abdominal u/s with acute cholitis, MRCP with large 17 mm gallstone, with fluid surrounding gallbladder suspicious for cholecystitis. 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 1-Transaminitis r/o choledocholithiasis versus hepatocellular/viral hepatitis/ autoimmune hepatitis/pbc versus acute cholecystitis versus danelle's disease. 2-Abdominal pain likely due to above 3- SIRS 4- htn 5- hld Plan: - Although no choledocholithiasis on MRCP, transaminitis fluctuating and total bili trending upward to 4 makes it suspicious. - Continue with antibiotics ( on Rocephin and flagyl) - NPO past midnight for EUS/ERCP - Continue with pain management - Zofran prn for nausea/vomiting - On protonix for Gi prophylaxis. - IV hydration - Hep panel including anti smooth antibodies, anti mitochondrial antibodies, Immunoglobulins, ceruloplasmin and NASEEM are ordered. - Will follow clinical course. Patient seen, examined and case discussed with Gi fellow and Dr Bradford. - Date & Time Date: 09/08/17 Time: 07:00 <Javed Bradford - Last Filed: 09/08/17 21:58> Meds - Medications Medications: Current Medications Acetaminophen (Tylenol 325mg Tab) 650 mg PO Q4H PRN PRN Reason: Fever >100.5 F Last Admin: 09/08/17 09:23 Dose: 650 mg Lactated Ringer's (Lactated Ringer's) 1,000 mls @ 100 mls/hr IV .Q10H [facility] Last Admin: 09/08/17 21:42 Dose: 100 mls/hr Metronidazole (Flagyl) 250 mg in 50 mls @ 100 mls/hr IV Q8 [facility] PRN Reason: Protocol Stop: 09/12/17 14:01 Last Admin: 09/08/17 21:40 Dose: 100 mls/hr Ceftriaxone Sodium (Rocephin 1 Gram Ivpb) 1 gm in 100 mls @ 100 mls/hr IVPB DAILY [facility] PRN Reason: Protocol Stop: 09/11/17 10:59 Last Admin: 09/08/17 09:24 Dose: 100 mls/hr Morphine Sulfate (Morphine) 2 mg IVP Q4H PRN PRN Reason: Pain, moderate (4-7) Ondansetron HCl (Zofran Inj) 4 mg IVP Q4H PRN PRN Reason: Nausea/Vomiting Pantoprazole Sodium (Protonix Inj) 40 mg IVP DAILY [facility] Last Admin: 09/08/17 09:24 Dose: 40 mg Results - Vital Signs Recent Vital Signs: Last Vital Signs Temp 98.2 F 09/08/17 16:00 Pulse 91 H 09/08/17 16:00 Resp 20 09/08/17 16:00 BP 153/86 H 09/08/17 16:00 Pulse Ox 93 L 09/08/17 16:00 - Labs Result Diagrams: 09/08/17 07:30 09/08/17 07:30 Labs: Laboratory Results - last 24 hr 09/07/17 09/08/17 09/08/17 07:30 07:30 07:30 WBC 14.8 H D RBC 3.98 Hgb 11.8 L Hct 35.5 L MCV 89.2 MCH 29.6 MCHC 33.2 RDW 13.3 Plt Count 134 MPV 9.4 Sodium 142 Potassium 3.4 L Chloride 110 H Carbon Dioxide 23 Anion Gap 12 BUN 7 Creatinine 0.5 L Est GFR ( Amer) > 60 Est GFR (Non-Af Amer) > 60 Random Glucose 76 Calcium 8.8 Total Bilirubin 4.6 H AST 177 H D ALT 216 H Alkaline Phosphatase 167 H Total Protein 5.9 Albumin 3.1 Globulin 2.9 Albumin/Globulin Ratio 1.1 Hepatitis A IgM Ab Negative Hep Bs Antigen Negative Hep B Core IgM Ab Negative Hepatitis C Antibody Negative Attending/Attestation - Attestation I have personally seen and examined this patient.: Yes I have fully participated in the care of the patient.: Yes I have reviewed all pertinent clinical information: Yes Notes (Text): 09/08/17 21:57 81 year old female who presents with upper abdominal pain, elevated lfts, and cholelithiasis. 1. Abdominal pain 2. Cholelithiasis 3. Elevated LFTs Plan: -npo after MN for EUS +/- ERCP tomorrow -empiric antibitiocs -surgery following for possible cholecystitis -viral / autoimmune serologies / iron studies for eval for chronic liver disease -trend daily lfts
[2017-09-08 07:54] LABS: HEMOGLOBIN 11.8 g/dL (12.0-16.0); MEAN CELL VOLUME 89.2 fl (80.0-105.0); MEAN CORPUSCULAR HEMOGLOBIN 29.6 pg (25.0-35.0); MEAN CORPUSCULAR HGB CONC 33.2 g/dl (31.0-37.0); MEAN PLATELET VOLUME 9.4 fl (7.0-11.0); RBC 3.98 10^6/uL (3.5-6.1); RED CELL DISTRIBUTION WIDTH 13.3 % (11.5-14.5); WHITE BLOOD COUNT 14.8 10^3/ul (4.5-11.0)
[2017-09-08 09:08] LABS: ALB/GLOB RATIO 1.1 (1.1-1.8); ALBUMIN 3.1 g/dL (3.0-4.8); ALT/SGPT 216 U/L (7-56); AST/SGOT 177 U/L (14-36); BLOOD UREA NITROGEN 7 mg/dL (7-21); CALCIUM 8.8 mg/dL (8.4-10.5); GFR AFRICAN-AMERICAN > 60; GFR NON-AFRICAN AMERICAN > 60
[2017-09-08] MEDS: cefTRIAXone 1 gm 1 GM/100 ML BAG IVPB SCH (09:24)
--- NOTE | 2017-09-08 10:10 | CP.PCM.PCO ---
Physician Communication Note - Physician Communication Note Physician Communication Note: Dec WBC-NO Pain/HUNGRY-Starting Liquids
--- NOTE | 2017-09-08 10:46 | CP.PCM.PN ---
Subjective - Date & Time of Evaluation Date of Evaluation: 09/08/17 Time of Evaluation: 07:10 - Subjective Subjective: Patient seen and examined this AM. Patient denies any pain, nausea, vomiting, or any other symptoms. Patient's HIDA had no uptake in any of the biliary tree, and MRCP showed no obstruction. GI has been consulted. Objective - Vital Signs/Intake and Output Vital Signs (last 24 hours): Temp Pulse Resp BP Pulse Ox 99.1 F 81 20 134/73 93 L 09/08/17 08:12 09/08/17 08:12 09/08/17 08:12 09/08/17 08:12 09/08/17 08:12 Intake and Output: 09/08/17 09/08/17 06:59 18:59 Intake Total 0 Balance 0 - Medications Medications: Current Medications Acetaminophen (Tylenol 325mg Tab) 650 mg PO Q4H PRN PRN Reason: Fever >100.5 F Last Admin: 09/08/17 09:23 Dose: 650 mg Lactated Ringer's (Lactated Ringer's) 1,000 mls @ 100 mls/hr IV .Q10H [facility] Last Admin: 09/08/17 00:45 Dose: 100 mls/hr Metronidazole (Flagyl) 250 mg in 50 mls @ 100 mls/hr IV Q8 [facility] PRN Reason: Protocol Stop: 09/12/17 14:01 Last Admin: 09/08/17 05:19 Dose: 100 mls/hr Ceftriaxone Sodium (Rocephin 1 Gram Ivpb) 1 gm in 100 mls @ 100 mls/hr IVPB DAILY [facility] PRN Reason: Protocol Stop: 09/11/17 10:59 Last Admin: 09/08/17 09:24 Dose: 100 mls/hr Morphine Sulfate (Morphine) 2 mg IVP Q4H PRN PRN Reason: Pain, moderate (4-7) Ondansetron HCl (Zofran Inj) 4 mg IVP Q4H PRN PRN Reason: Nausea/Vomiting Pantoprazole Sodium (Protonix Inj) 40 mg IVP DAILY [facility] Last Admin: 09/08/17 09:24 Dose: 40 mg - Labs Labs: 09/08/17 07:30 09/08/17 07:30 PT 10.9 SECONDS (9.4-12.5) 09/06/17 23:30 INR 0.96 (0.93-1.08) 09/06/17 23:30 APTT 30.4 Seconds (25.1-36.5) 09/06/17 23:30 - Constitutional Appears: Well, Non-toxic, No Acute Distress - Head Exam Head Exam: ATRAUMATIC, NORMOCEPHALIC - Eye Exam Eye Exam: Normal appearance. absent: Scleral icterus - ENT Exam ENT Exam: Mucous Membranes Moist, Normal Oropharynx - Respiratory Exam Respiratory Exam: NORMAL BREATHING PATTERN. absent: Accessory Muscle Use, Respiratory Distress - Cardiovascular Exam Cardiovascular Exam: RRR - GI/Abdominal Exam GI & Abdominal Exam: Soft. absent: Distended, Tenderness, Rebound - Extremities Exam Extremities Exam: absent: Calf Tenderness, Pedal Edema, Tenderness - Neurological Exam Neurological Exam: Alert, Awake, Oriented x3 - Psychiatric Exam Psychiatric exam: Normal Affect, Normal Mood - Skin Skin Exam: Dry, Intact, Normal Color, Warm Assessment and Plan - Assessment and Plan (Free Text) Assessment: 81F with RUQ pain, elevated LFT's concerning for intrahepatic pathology vs acute cholecystitis Plan: -No indication for emergent surgery at this time -F/U GI recs--further surgical planning pending their evaluation -T. bili elevated to 4.6 up from 2.6, LFT's decreased mildly. Continue to trend CMP -WBC down trending--continue to monitor -Continue NPO -PRN pain and nausea medications -IVF -DVT ppx -Monitor vitals and exam closely Discussed with Dr. Cervantes, further recs per him Jannette Mccord, PGY2
[2017-09-08 13:02] LABS: HEPATITIS B SURFACE AG Negative (NEGATIVE)
[2017-09-08 13:08] LABS: HEPATITIS A IGM NEGATIVE (NEGATIVE); HEPATITIS B CORE AB NEGATIVE (NEGATIVE)
[2017-09-08 13:19] LABS: HEPATITIS C ANTIBODY NEGATIVE (NEGATIVE)
--- NOTE | 2017-09-08 23:29 | PN ---
DATE: SUBJECTIVE: The patient is 81 years old, seen and examined. States the pain is gone. No nausea, vomiting or diarrhea. No fever, no chills. PHYSICAL EXAMINATION: VITAL SIGNS: The patient is afebrile, pulse 81, respirations 20, blood pressure 134/73. LUNGS: Bilateral good airflow. No rhonchi or crackles. HEART: S1 and S2 audible. ABDOMEN: Soft, obese, nontender. No rebound. No guarding. NEUROLOGICAL: She is awake, alert, oriented, able to communicate. LABORATORY DATA: WBC 14.8, hemoglobin 11.8, hematocrit 35.5, platelets 134. Chemistry: Sodium 142, potassium 3.4, chloride 110, CO2 of 23, BUN 7, creatinine 0.5, blood sugar of 76. AST 177, ALT 216, alk phos 167. ASSESSMENT: 1. Cholelithiasis. 2. Abnormal liver function tests. 3. Hepatocellular disease. 4. Hypertension. 5. Non-visualization of biliary duct because of hepatocellular disease. PLAN: Discussed with Dr. Nolan. We will start patient on IV fluids. She is currently on IV antibiotics. Will be seen by Dr. Bradford, might need EUS. We will discuss with Dr. Bradford and follow up LFTs. Lillian Gan MD
[2017-09-09] MEDS: metroNIDAZOLE IV 250mg/50 ml 250 MG/50 ML BAG IV SCH ×3 (05:34→21:52)
[2017-09-09] MEDS: Lactated Ringer's 1,000 ML IV SCH (06:25)
[2017-09-09 06:37] LABS: BASO # 0.02 K/mm3 (0.0-2.0); BASO % 0.1 % (0.0-3.0); EOS # 0.2 (0.0-0.7); EOS % 1.2 % (1.5-5.0); GRAN # 6.23 (1.4-6.5); GRAN % 45.2 % (50.0-68.0); HEMOGLOBIN 12.7 g/dL (12.0-16.0); LYMPH # 6.5 (1.2-3.4); LYMPH % 46.9 % (22.0-35.0); MEAN CORPUSCULAR HEMOGLOBIN 29.6 pg (25.0-35.0); MEAN CORPUSCULAR HGB CONC 33.2 g/dl (31.0-37.0); MEAN PLATELET VOLUME 9.8 fl (7.0-11.0); MONO # 0.9 (0.1-0.6); MONO % 6.6 % (1.0-6.0); RBC 4.29 10^6/uL (3.5-6.1); RED CELL DISTRIBUTION WIDTH 13.5 % (11.5-14.5); WHITE BLOOD COUNT 13.8 10^3/ul (4.5-11.0)
[2017-09-09 07:48] LABS: ALB/GLOB RATIO 1.1 (1.1-1.8); ALBUMIN 3.2 g/dL (3.0-4.8); ALT/SGPT 200 U/L (7-56); AST/SGOT 157 U/L (14-36); BLOOD UREA NITROGEN 3 mg/dL (7-21); GFR AFRICAN-AMERICAN > 60; GFR NON-AFRICAN AMERICAN > 60
--- NOTE | 2017-09-09 08:02 | CP.PCM.PCO ---
Physician Communication Note - Physician Communication Note Physician Communication Note: EUS Today/WBC Lymph not PMN/LFT Rising
[2017-09-09] MEDS ORDERED: Iohexol 240 (50 ml) ONE (08:20)
[2017-09-09] MEDS: Potassium Chloride 20 MEQ in Lactated Ringer's 1,000 ML IV SCH (08:41)
[2017-09-09] MEDS: cefTRIAXone 1 gm 1 GM/100 ML BAG IVPB SCH (09:24)
--- NOTE | 2017-09-09 10:43 | CP.PCM.PN ---
<Sherrell Garcia - Last Filed: 09/09/17 12:34> Subjective - Date & Time of Evaluation Date of Evaluation: 09/09/17 Time of Evaluation: 10:40 - Subjective Subjective: GENERAL SURGERY CONSULT PROGRESS NOTE FOR DR. CERVANTES. Patient has been seen and examined at bedside. No overnight events reported. Patient denies any abdominal pain, fever, nausea, or vomiting. She is having flatus. Patient has had no bowel movement since admission. She states she normally has bowel movements once a week. She tolerated her clear liquid diet. Is aware of EUS this afternoon. Objective - Vital Signs/Intake and Output Vital Signs (last 24 hours): Temp Pulse Resp BP Pulse Ox 97.9 F 80 19 150/88 93 L 09/09/17 08:45 09/09/17 08:45 09/09/17 08:45 09/09/17 08:45 09/09/17 08:45 Intake and Output: 09/09/17 09/09/17 06:59 18:59 Intake Total 540 Balance 540 - Medications Medications: Current Medications Acetaminophen (Tylenol 325mg Tab) 650 mg PO Q4H PRN PRN Reason: Fever >100.5 F Last Admin: 09/08/17 23:28 Dose: 650 mg Metronidazole (Flagyl) 250 mg in 50 mls @ 100 mls/hr IV Q8 [facility] PRN Reason: Protocol Stop: 09/12/17 14:01 Last Admin: 09/09/17 05:34 Dose: 100 mls/hr Ceftriaxone Sodium (Rocephin 1 Gram Ivpb) 1 gm in 100 mls @ 100 mls/hr IVPB DAILY [facility] PRN Reason: Protocol Stop: 09/11/17 10:59 Last Admin: 09/09/17 09:24 Dose: 100 mls/hr Potassium Chloride 20 meq/ (Lactated Ringer's) 1,010 mls @ 100 mls/hr IV .Q10H6M [facility] Last Admin: 09/09/17 08:41 Dose: 100 mls/hr Morphine Sulfate (Morphine) 2 mg IVP Q4H PRN PRN Reason: Pain, moderate (4-7) Ondansetron HCl (Zofran Inj) 4 mg IVP Q4H PRN PRN Reason: Nausea/Vomiting Pantoprazole Sodium (Protonix Inj) 40 mg IVP DAILY [facility] Last Admin: 09/09/17 09:25 Dose: 40 mg - Labs Labs: 09/09/17 06:10 09/09/17 06:10 PT 10.9 SECONDS (9.4-12.5) 09/06/17 23:30 INR 0.96 (0.93-1.08) 09/06/17 23:30 APTT 30.4 Seconds (25.1-36.5) 09/06/17 23:30 - Additional Findings Additional findings: - Constitutional Appears: Well, Non-toxic, No Acute Distress - Head Exam Head Exam: ATRAUMATIC, NORMOCEPHALIC - Eye Exam Eye Exam: Normal appearance. absent: Scleral icterus - ENT Exam ENT Exam: Mucous Membranes Moist, Normal Oropharynx - Respiratory Exam Respiratory Exam: NORMAL BREATHING PATTERN. absent: Accessory Muscle Use, Respiratory Distress - Cardiovascular Exam Cardiovascular Exam: RRR - GI/Abdominal Exam GI & Abdominal Exam: Soft. absent: Distended, Tenderness, Rebound - Extremities Exam Extremities Exam: absent: Calf Tenderness, Pedal Edema, Tenderness - Neurological Exam Neurological Exam: Alert, Awake, Oriented x3 - Psychiatric Exam Psychiatric exam: Normal Affect, Normal Mood - Skin Skin Exam: Dry, Intact, Normal Color, Warm Assessment and Plan - Assessment and Plan (Free Text) Assessment: 81F with RUQ pain, elevated LFT's concerning for intrahepatic pathology vs acute cholecystitis Hepatitis Panel - NEGATIVE WBC - Downtrending T. Landon and Alk Phos - increasing AST/ALT - Decreasing Hypokalemia. Plan: -F/U EUS results. -F/U GI recs--further surgical planning pending their evaluation -Monitor WBC's -PRN pain and nausea medications -IVF -DVT ppx -Monitor vitals and exam closely -No indication for emergent surgery at this time Further Recs as per Dr. Cervantes. Sherrell Garcia, PGY1 <Eleazar Cervantes - Last Filed: 09/09/17 20:11> Objective - Vital Signs/Intake and Output Vital Signs (last 24 hours): Temp Pulse Resp BP Pulse Ox 98.6 F 71 16 149/75 98 09/09/17 15:39 09/09/17 15:39 09/09/17 15:39 09/09/17 15:39 09/09/17 15:39 Intake and Output: 09/09/17 09/10/17 18:59 06:59 Intake Total 0 Balance 0 - Medications Medications: Current Medications Acetaminophen (Tylenol 325mg Tab) 650 mg PO Q4H PRN PRN Reason: Fever >100.5 F Last Admin: 09/08/17 23:28 Dose: 650 mg Metronidazole (Flagyl) 250 mg in 50 mls @ 100 mls/hr IV Q8 [facility] PRN Reason: Protocol Stop: 09/12/17 14:01 Last Admin: 09/09/17 14:14 Dose: 100 mls/hr Ceftriaxone Sodium (Rocephin 1 Gram Ivpb) 1 gm in 100 mls @ 100 mls/hr IVPB DAILY [facility] PRN Reason: Protocol Stop: 09/11/17 10:59 Last Admin: 09/09/17 09:24 Dose: 100 mls/hr Potassium Chloride 20 meq/ (Lactated Ringer's) 1,010 mls @ 100 mls/hr IV .Q10H6M [facility] Last Admin: 09/09/17 08:41 Dose: 100 mls/hr Morphine Sulfate (Morphine) 2 mg IVP Q4H PRN PRN Reason: Pain, moderate (4-7) Ondansetron HCl (Zofran Inj) 4 mg IVP Q4H PRN PRN Reason: Nausea/Vomiting Pantoprazole Sodium (Protonix Inj) 40 mg IVP DAILY [facility] Last Admin: 09/09/17 09:25 Dose: 40 mg - Labs Labs: 09/09/17 06:10 09/09/17 06:10 PT 10.9 SECONDS (9.4-12.5) 09/06/17 23:30 INR 0.96 (0.93-1.08) 09/06/17 23:30 APTT 30.4 Seconds (25.1-36.5) 09/06/17 23:30 Assessment and Plan - Assessment and Plan (Free Text) Assessment: ERCP-Stent : 0.5 cm CD Stone removed Await repeat LFT/Pancreatic function/Interval Cholecystectomy will be necessary- timing pending clinical outcome Steven Cervantes MD FACS
[2017-09-09] MEDS ORDERED: Indomethacin 50 MG Suppository PR ONE ×2 (12:06→12:45)
[2017-09-09] MEDS ORDERED: Lactated Ringer's 1,000 ML IV SCH ×2 (12:15→14:45)
[2017-09-09] MEDS ORDERED: Midazolam 2 MG/2 ML VIAL ONE (12:26)
[2017-09-09] MEDS ORDERED: Propofol 10 mg/ml Inj (20 ML) ONE (12:26)
[2017-09-09] MEDS ORDERED: Rocuronium 10 mg/ml (5 ml) ONE (12:27)
[2017-09-09] MEDS ORDERED: Neostigmine Methylsulfate 3mg/3ml Syringe IV ONE (12:40)
[2017-09-09] MEDS ORDERED: Glycopyrrolate 0.2 mg/ml (2ml vial) ONE (12:41)
[2017-09-09 12:56] LABS: HEPATITIS B SURFACE AG Negative (NEGATIVE)
[2017-09-09] MEDS ORDERED: Glucagon Recombinant 1 mg Inj ONE (12:59)
[2017-09-09 13:01] LABS: HEPATITIS B CORE AB NEGATIVE (NEGATIVE)
[2017-09-09 13:13] LABS: HEPATITIS C ANTIBODY NEGATIVE (NEGATIVE)
[2017-09-09 14:59] LABS: HEPATITIS A TOTAL Antibody Positive (NEGATIVE)
--- NOTE | 2017-09-09 16:16 | PN ---
DATE: SUBJECTIVE: The patient is 81-year-old, seen and examined, awaiting to have EUS done. Denies any chest pain or shortness of breath. She is n.p.o. No abdominal discomfort. No nausea or vomiting. PHYSICAL EXAMINATION: VITAL SIGNS: She is afebrile. Pulse 80, respirations 19, and blood pressure 150/88. LUNGS: Bilateral fair airflow. No rhonchi or crackles. HEART: S1 and S2 audible. ABDOMEN: Soft, obese, and nontender. Slight epigastric discomfort. No rebound or guarding. NEUROLOGICAL: She is awake, alert, oriented, communicative. LABORATORY DATA: WBC is 13.8, hemoglobin 12.7, hematocrit 38, and platelets 143. Chemistry: Sodium 144, potassium 3.4, chloride 110, CO2 of 24, BUN 3, creatinine 0.4, and blood sugar of 90. Total bilirubin 5.1. AST 157, ALT 200, and alk phos is 191. Hepatis profile is negative for hep A, B, and C. ASSESSMENT: 1. Abnormal liver function tests, etiology still unclear, rule out underlying malignancy versus acute cholecystitis. 2. Cholelithiasis. 3. Hypertension. 4. Morbid obesity. PLAN: The patient is awaiting EUS. We will continue on metronidazole. She is on IV fluid and IV antibiotic, Rocephin. We will follow up her CBC, CMP. Workup has been ordered to rule out primary biliary cirrhosis. We will follow up this patient . Lillian Gan MD
--- NOTE | 2017-09-09 19:40 | CP.PCM.PCO ---
Physician Communication Note - Physician Communication Note Physician Communication Note: CD Stone removed(ERCP)-Stented/Check LFT-? Interval cholecystectomy
[2017-09-10] MEDS: metroNIDAZOLE IV 250mg/50 ml 250 MG/50 ML BAG IV SCH ×3 (05:41→21:48)
[2017-09-10] MEDS: Potassium Chloride 20 MEQ in Lactated Ringer's 1,000 ML IV SCH (05:46)
[2017-09-10 07:08] LABS: ALB/GLOB RATIO 1.1 (1.1-1.8); ALBUMIN 3.1 g/dL (3.0-4.8); ALT/SGPT 159 U/L (7-56); AST/SGOT 105 U/L (14-36); BLOOD UREA NITROGEN 5 mg/dL (7-21); CALCIUM 8.5 mg/dL (8.4-10.5); GFR AFRICAN-AMERICAN > 60; GFR NON-AFRICAN AMERICAN > 60
[2017-09-10 07:12] LABS: HEMOGLOBIN 12.9 g/dL (12.0-16.0); MEAN CELL VOLUME 88.6 fl (80.0-105.0); MEAN CORPUSCULAR HEMOGLOBIN 29.5 pg (25.0-35.0); MEAN CORPUSCULAR HGB CONC 33.2 g/dl (31.0-37.0); MEAN PLATELET VOLUME 10.2 fl (7.0-11.0); RBC 4.38 10^6/uL (3.5-6.1); RED CELL DISTRIBUTION WIDTH 13.5 % (11.5-14.5); WHITE BLOOD COUNT 18.7 10^3/ul (4.5-11.0)
[2017-09-10 08:56] LABS: AMYLASE 255 U/L (35-125)
--- NOTE | 2017-09-10 09:07 | CP.PCM.PN ---
Subjective - Date & Time of Evaluation Date of Evaluation: 09/10/17 Time of Evaluation: 07:00 - Subjective Subjective: Patient seen and examined at bedside. Patient underwent an ERCP with small stone extraction from the CBD. Patient was found to have a diverticulum involving the papilla Denies any abdominal pain, nausea or vomiting, fevers, back pain, and is tolerating clear liquid diet. Objective - Vital Signs/Intake and Output Vital Signs (last 24 hours): Temp Pulse Resp BP Pulse Ox 98.9 F 91 H 20 145/94 H 94 L 09/10/17 08:59 09/10/17 08:59 09/10/17 08:59 09/10/17 08:59 09/10/17 08:59 Intake and Output: 09/10/17 09/10/17 06:59 18:59 Intake Total 1320 Balance 1320 - Medications Medications: Current Medications Acetaminophen (Tylenol 325mg Tab) 650 mg PO Q4H PRN PRN Reason: Fever >100.5 F Last Admin: 09/08/17 23:28 Dose: 650 mg Metronidazole (Flagyl) 250 mg in 50 mls @ 100 mls/hr IV Q8 [facility] PRN Reason: Protocol Stop: 09/12/17 14:01 Last Admin: 09/10/17 05:41 Dose: 100 mls/hr Ceftriaxone Sodium (Rocephin 1 Gram Ivpb) 1 gm in 100 mls @ 100 mls/hr IVPB DAILY [facility] PRN Reason: Protocol Stop: 09/11/17 10:59 Last Admin: 09/09/17 09:24 Dose: 100 mls/hr Potassium Chloride 20 meq/ (Lactated Ringer's) 1,010 mls @ 100 mls/hr IV .Q10H6M [facility] Last Admin: 09/10/17 05:46 Dose: 100 mls/hr Morphine Sulfate (Morphine) 2 mg IVP Q4H PRN PRN Reason: Pain, moderate (4-7) Ondansetron HCl (Zofran Inj) 4 mg IVP Q4H PRN PRN Reason: Nausea/Vomiting Pantoprazole Sodium (Protonix Inj) 40 mg IVP DAILY [facility] Last Admin: 09/09/17 09:25 Dose: 40 mg - Labs Labs: 09/10/17 05:30 09/10/17 05:30 PT 10.9 SECONDS (9.4-12.5) 09/06/17 23:30 INR 0.96 (0.93-1.08) 09/06/17 23:30 APTT 30.4 Seconds (25.1-36.5) 09/06/17 23:30 - Constitutional Appears: Non-toxic, No Acute Distress - Head Exam Head Exam: ATRAUMATIC, NORMOCEPHALIC - Eye Exam Eye Exam: Normal appearance. absent: Conjunctival injection, Scleral icterus - ENT Exam ENT Exam: Mucous Membranes Moist, Normal Oropharynx - Respiratory Exam Respiratory Exam: NORMAL BREATHING PATTERN. absent: Accessory Muscle Use, Respiratory Distress - Cardiovascular Exam Cardiovascular Exam: RRR - GI/Abdominal Exam GI & Abdominal Exam: Soft. absent: Distended, Tenderness - Extremities Exam Extremities Exam: Tenderness. absent: Calf Tenderness, Pedal Edema - Neurological Exam Neurological Exam: Alert, Awake, Oriented x3 - Psychiatric Exam Psychiatric exam: Normal Affect, Normal Mood - Skin Skin Exam: Dry, Intact, Normal Color, Warm Assessment and Plan - Assessment and Plan (Free Text) Assessment: 81F with choledocholithiasis s/p ERCP with CBD stone removal and stent placement in the pancreatic duct and cholelithiasis vs acute cholecystitis vs intrahepatic pathology WBC increased to 18 LFT's trending down elevated amylase/lipase afebrile, VSS Plan: -F/U GI recs -Trend CBC/CMP, repeat amylase and lipase in the AM -PRN pain and nausea medications -IVF -Continue CLD d/t concern for pancreatitis due to ERCP yesterday -DVT ppx -Monitor vitals and exam closely -further surgical planning pending clinical course and LFT's--still suspicion for intra-hepatic pathology Discussed with Dr. Billy Mccord, PGY2
--- NOTE | 2017-09-10 09:12 | CP.PCM.PN ---
<An Gupta - Last Filed: 09/10/17 09:13> Subjective - Date & Time of Evaluation Date of Evaluation: 09/10/17 Time of Evaluation: 08:25 - Subjective Subjective: PGY4 Gi Follow up Pt seen and examined bedside denies any abd pain \tolerated liquid diet denies having a BM +cough ROS: 10 point ROS conducted and otherwise neg Objective - Vital Signs/Intake and Output Vital Signs (last 24 hours): Temp Pulse Resp BP Pulse Ox 98.9 F 91 H 20 145/94 H 94 L 09/10/17 08:59 09/10/17 08:59 09/10/17 08:59 09/10/17 08:59 09/10/17 08:59 Intake and Output: 09/10/17 09/10/17 06:59 18:59 Intake Total 1320 Balance 1320 - Medications Medications: Current Medications Acetaminophen (Tylenol 325mg Tab) 650 mg PO Q4H PRN PRN Reason: Fever >100.5 F Last Admin: 09/08/17 23:28 Dose: 650 mg Metronidazole (Flagyl) 250 mg in 50 mls @ 100 mls/hr IV Q8 [facility] PRN Reason: Protocol Stop: 09/12/17 14:01 Last Admin: 09/10/17 05:41 Dose: 100 mls/hr Ceftriaxone Sodium (Rocephin 1 Gram Ivpb) 1 gm in 100 mls @ 100 mls/hr IVPB DAILY [facility] PRN Reason: Protocol Stop: 09/11/17 10:59 Last Admin: 09/09/17 09:24 Dose: 100 mls/hr Potassium Chloride 20 meq/ (Lactated Ringer's) 1,010 mls @ 100 mls/hr IV .Q10H6M [facility] Last Admin: 09/10/17 05:46 Dose: 100 mls/hr Morphine Sulfate (Morphine) 2 mg IVP Q4H PRN PRN Reason: Pain, moderate (4-7) Ondansetron HCl (Zofran Inj) 4 mg IVP Q4H PRN PRN Reason: Nausea/Vomiting Pantoprazole Sodium (Protonix Inj) 40 mg IVP DAILY [facility] Last Admin: 09/09/17 09:25 Dose: 40 mg - Labs Labs: 09/10/17 05:30 09/10/17 05:30 PT 10.9 SECONDS (9.4-12.5) 09/06/17 23:30 INR 0.96 (0.93-1.08) 09/06/17 23:30 APTT 30.4 Seconds (25.1-36.5) 09/06/17 23:30 - Constitutional Appears: Well, No Acute Distress - Head Exam Head Exam: ATRAUMATIC, NORMOCEPHALIC - Eye Exam Eye Exam: Normal appearance - ENT Exam ENT Exam: Mucous Membranes Moist - Respiratory Exam Respiratory Exam: Clear to Ausculation Bilateral, NORMAL BREATHING PATTERN. absent: Rales, Rhonchi, Wheezes, Respiratory Distress - Cardiovascular Exam Cardiovascular Exam: REGULAR RHYTHM, +S1, +S2 - GI/Abdominal Exam GI & Abdominal Exam: Soft, Normal Bowel Sounds. absent: Guarding, Rigid, Tenderness, Organomegaly - Extremities Exam Extremities Exam: absent: Joint Swelling, Pedal Edema - Neurological Exam Neurological Exam: Alert, Awake, Normal Gait, Oriented x3 - Psychiatric Exam Psychiatric exam: Normal Affect, Normal Mood - Skin Skin Exam: Dry, Intact, Normal Color, Warm Assessment and Plan - Assessment and Plan (Free Text) Assessment: Patient is an 81 y/o with pmh of htn, hld and osteoporosis who presented with right upper quadrant abdominal pain, nausea and vomiting and was found to have transaminitis and was found have cholelithiasis suspicious for cholecystitis. Patient initially had CT abdomen and pelvis revealing cholelithaisis, colitis and mild duodenitis, abdominal u/s with acute cholitis, MRCP with large 17 mm gallstone, with fluid surrounding gallbladder suspicious for cholecystitis. 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 S/P ERCP w/ spincterotomy and PD stent placement and small stone extraction 1-Choledocholithiasis 2-Abdominal pain likely due to above 3- SIRS 4- htn 5- hld Plan: - recommend eventual surgery - Continue with antibiotics ( on Rocephin and flagyl) - advance diet - Continue with pain management - Zofran prn for nausea/vomiting - On protonix for Gi prophylaxis. - IV hydration - will sign off - f/u Dr. Bradford as an oupt D/W Dr. Bradford <Javed Bradford - Last Filed: 09/10/17 10:31> Objective - Vital Signs/Intake and Output Vital Signs (last 24 hours): Temp Pulse Resp BP Pulse Ox 98.9 F 91 H 20 145/94 H 94 L 09/10/17 08:59 09/10/17 08:59 09/10/17 08:59 09/10/17 08:59 09/10/17 08:59 Intake and Output: 09/10/17 09/10/17 06:59 18:59 Intake Total 1320 Balance 1320 - Medications Medications: Current Medications Acetaminophen (Tylenol 325mg Tab) 650 mg PO Q4H PRN PRN Reason: Fever >100.5 F Last Admin: 09/08/17 23:28 Dose: 650 mg Metronidazole (Flagyl) 250 mg in 50 mls @ 100 mls/hr IV Q8 [facility] PRN Reason: Protocol Stop: 09/12/17 14:01 Last Admin: 09/10/17 05:41 Dose: 100 mls/hr Ceftriaxone Sodium (Rocephin 1 Gram Ivpb) 1 gm in 100 mls @ 100 mls/hr IVPB DAILY [facility] PRN Reason: Protocol Stop: 09/11/17 10:59 Last Admin: 09/10/17 09:42 Dose: 100 mls/hr Potassium Chloride 20 meq/ (Lactated Ringer's) 1,010 mls @ 100 mls/hr IV .Q10H6M [facility] Last Admin: 09/10/17 05:46 Dose: 100 mls/hr Morphine Sulfate (Morphine) 2 mg IVP Q4H PRN PRN Reason: Pain, moderate (4-7) Ondansetron HCl (Zofran Inj) 4 mg IVP Q4H PRN PRN Reason: Nausea/Vomiting Pantoprazole Sodium (Protonix Inj) 40 mg IVP DAILY [facility] Last Admin: 09/10/17 09:43 Dose: 40 mg Polyethylene Glycol (Miralax) 17 gm PO BID [facility] Last Admin: 09/10/17 09:43 Dose: 17 gm - Labs Labs: 09/10/17 05:30 09/10/17 05:30 PT 10.9 SECONDS (9.4-12.5) 09/06/17 23:30 INR 0.96 (0.93-1.08) 09/06/17 23:30 APTT 30.4 Seconds (25.1-36.5) 09/06/17 23:30 Attending/Attestation - Attestation I have personally seen and examined this patient.: Yes I have fully participated in the care of the patient.: Yes I have reviewed all pertinent clinical information, including history, physical exam and plan: Yes Notes (Text): 09/10/17 10:27 81 year old female admitted with epigastric pain, elevated LFTs, found to have gallstones now s/p EUS showing choledocholithaisis and ERCP with sphincterotomy and stone extraction. 1. Choledocholithiasis 2. Cholelithiasis 3. Cough Plan: -advance diet as tolerated -continue antibiotics -check daily lfts -if LFTs don't improve, she would need additional liver evaluation, though they are starting to downtrend -she will eventually need a cholecystectomy -check chest x ray considering cough -no abdominal pain to suggest pancreatitis -tolerating diet fine
[2017-09-10] MEDS: cefTRIAXone 1 gm 1 GM/100 ML BAG IVPB SCH (09:42)
[2017-09-10] MEDS: POLYETHYLENE GLYCOL 3350 17 GM/Dose PACKET PO SCH ×2 (09:43→18:06)
[2017-09-10 10:08] LABS: LIPASE 1866 U/L (23-300)
--- NOTE | 2017-09-10 14:48 | RAD ---
HISTORY: cou COMPARISON: 09/07/2017 FINDINGS: LUNGS: No active pulmonary disease. PLEURA: No significant pleural effusion identified, no pneumothorax apparent. CARDIOVASCULAR: Normal. OSSEOUS STRUCTURES: No significant abnormalities. VISUALIZED UPPER ABDOMEN: Normal. OTHER FINDINGS: None. IMPRESSION: No active disease.
--- NOTE | 2017-09-10 15:40 | RAD ---
PROCEDURE: ERCP HISTORY: CBD OBST COMPARISON: TECHNIQUE: Fluoroscopy was provided in the endoscopy suite. 212 seconds of fluoro time were used. Nine images were submitted FINDINGS: The study shows passage of a balloon catheter through the common duct. IMPRESSION: As above
[2017-09-10 17:29] VITALS: O2SAT 96
[2017-09-10 23:54] LABS: HAV AB (IGM) Nonreactive (Nonreactive)
[2017-09-11] MEDS: metroNIDAZOLE IV 250mg/50 ml 250 MG/50 ML BAG IV SCH ×2 (05:42→16:47)
[2017-09-11 06:52] LABS: BASO # 0.03 K/mm3 (0.0-2.0); BASO % 0.1 % (0.0-3.0); EOS # 0.1 (0.0-0.7); EOS % 0.6 % (1.5-5.0); GRAN # 9.94 (1.4-6.5); GRAN % 47.9 % (50.0-68.0); HEMOGLOBIN 11.8 g/dL (12.0-16.0); LYMPH # 9.2 (1.2-3.4); LYMPH % 44.4 % (22.0-35.0); MEAN CELL VOLUME 89.4 fl (80.0-105.0); MEAN CORPUSCULAR HEMOGLOBIN 29.6 pg (25.0-35.0); MEAN CORPUSCULAR HGB CONC 33.1 g/dl (31.0-37.0); MONO # 1.5 (0.1-0.6); RBC 3.98 10^6/uL (3.5-6.1); RED CELL DISTRIBUTION WIDTH 13.8 % (11.5-14.5); WHITE BLOOD COUNT 20.8 10^3/ul (4.5-11.0)
[2017-09-11 07:14] LABS: ALB/GLOB RATIO 1.1 (1.1-1.8); ALT/SGPT 125 U/L (7-56); AMYLASE 97 U/L (35-125); AST/SGOT 76 U/L (14-36); BLOOD UREA NITROGEN 6 mg/dL (7-21); CALCIUM 8.5 mg/dL (8.4-10.5); GFR AFRICAN-AMERICAN > 60; GFR NON-AFRICAN AMERICAN > 60; LIPASE 866 U/L (23-300)
--- NOTE | 2017-09-11 08:02 | CP.PCM.PN ---
<An Gupta - Last Filed: 09/11/17 11:36> Subjective - Date & Time of Evaluation Date of Evaluation: 09/11/17 Time of Evaluation: 07:30 - Subjective Subjective: PGY4 GI Follow-up Pt seen and examined bedside No complaints Tolerating clears denies any N/V/D ROS: 10 point ROS conducted neg other than above Objective - Vital Signs/Intake and Output Vital Signs (last 24 hours): Temp Pulse Resp BP Pulse Ox 99.7 F H 92 H 20 132/85 96 09/10/17 16:00 09/10/17 16:00 09/10/17 16:00 09/10/17 16:00 09/10/17 16:00 Intake and Output: 09/11/17 09/11/17 06:59 18:59 Intake Total 840 Output Total 950 Balance -110 - Medications Medications: Current Medications Acetaminophen (Tylenol 325mg Tab) 650 mg PO Q4H PRN PRN Reason: Fever >100.5 F Last Admin: 09/08/17 23:28 Dose: 650 mg Metronidazole (Flagyl) 250 mg in 50 mls @ 100 mls/hr IV Q8 [facility] PRN Reason: Protocol Stop: 09/12/17 14:01 Last Admin: 09/11/17 05:42 Dose: 100 mls/hr Ceftriaxone Sodium (Rocephin 1 Gram Ivpb) 1 gm in 100 mls @ 100 mls/hr IVPB DAILY [facility] PRN Reason: Protocol Stop: 09/11/17 10:59 Last Admin: 09/10/17 09:42 Dose: 100 mls/hr Morphine Sulfate (Morphine) 2 mg IVP Q4H PRN PRN Reason: Pain, moderate (4-7) Ondansetron HCl (Zofran Inj) 4 mg IVP Q4H PRN PRN Reason: Nausea/Vomiting Pantoprazole Sodium (Protonix Inj) 40 mg IVP DAILY [facility] Last Admin: 09/10/17 09:43 Dose: 40 mg Polyethylene Glycol (Miralax) 17 gm PO BID [facility] Last Admin: 09/10/17 18:06 Dose: 17 gm - Labs Labs: 09/11/17 05:30 09/11/17 05:30 PT 10.9 SECONDS (9.4-12.5) 09/06/17 23:30 INR 0.96 (0.93-1.08) 09/06/17 23:30 APTT 30.4 Seconds (25.1-36.5) 09/06/17 23:30 - Constitutional Appears: Well, No Acute Distress - Head Exam Head Exam: ATRAUMATIC, NORMOCEPHALIC - Eye Exam Eye Exam: Normal appearance - ENT Exam ENT Exam: Mucous Membranes Moist - Respiratory Exam Respiratory Exam: Clear to Ausculation Bilateral, NORMAL BREATHING PATTERN. absent: Rales, Rhonchi, Wheezes, Respiratory Distress - Cardiovascular Exam Cardiovascular Exam: REGULAR RHYTHM, +S1, +S2 - GI/Abdominal Exam GI & Abdominal Exam: Soft, Normal Bowel Sounds. absent: Guarding, Rigid, Tenderness - Extremities Exam Extremities Exam: absent: Joint Swelling, Pedal Edema - Neurological Exam Neurological Exam: Alert, Awake, Oriented x3 - Psychiatric Exam Psychiatric exam: Normal Affect, Normal Mood - Skin Skin Exam: Dry, Intact, Normal Color, Warm Assessment and Plan - Assessment and Plan (Free Text) Assessment: Patient is an 81 y/o with pmh of htn, hld and osteoporosis who presented with right upper quadrant abdominal pain, nausea and vomiting and was found to have transaminitis and was found have cholelithiasis suspicious for cholecystitis. Patient initially had CT abdomen and pelvis revealing cholelithaisis, colitis and mild duodenitis, abdominal u/s with acute cholitis, MRCP with large 17 mm gallstone, with fluid surrounding gallbladder suspicious for cholecystitis. 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 S/P ERCP w/ spincterotomy and PD stent placement and small stone extraction, POD#2 1-Choledocholithiasis 2-Abdominal pain likely due to above 3- SIRS 4- htn 5- hld Plan: - recommend eventual surgery - Continue with antibiotics ( on Rocephin and flagyl) - advance diet - Continue with pain management - Zofran prn for nausea/vomiting - On protonix for Gi prophylaxis. - IV hydration - will sign off - f/u Dr. Bradford as an oupt D/W Dr. Gordillo <Henri Gordillo Y - Last Filed: 09/11/17 12:07> Objective - Vital Signs/Intake and Output Vital Signs (last 24 hours): Temp Pulse Resp BP Pulse Ox 98.5 F 89 22 149/78 96 02/09/18 06:00 09/11/17 06:00 09/11/17 06:00 09/11/17 06:00 09/11/17 06:00 Intake and Output: 09/11/17 09/11/17 06:59 18:59 Intake Total 840 Output Total 950 Balance -110 - Medications Medications: Current Medications Acetaminophen (Tylenol 325mg Tab) 650 mg PO Q4H PRN PRN Reason: Fever >100.5 F Last Admin: 09/08/17 23:28 Dose: 650 mg Metronidazole (Flagyl) 250 mg in 50 mls @ 100 mls/hr IV Q8 [facility] PRN Reason: Protocol Stop: 09/12/17 14:01 Last Admin: 09/11/17 05:42 Dose: 100 mls/hr Morphine Sulfate (Morphine) 2 mg IVP Q4H PRN PRN Reason: Pain, moderate (4-7) Ondansetron HCl (Zofran Inj) 4 mg IVP Q4H PRN PRN Reason: Nausea/Vomiting Pantoprazole Sodium (Protonix Inj) 40 mg IVP DAILY [facility] Last Admin: 09/11/17 09:52 Dose: 40 mg Polyethylene Glycol (Miralax) 17 gm PO BID [facility] Last Admin: 09/11/17 09:50 Dose: 17 gm - Labs Labs: 09/11/17 05:30 09/11/17 05:30 PT 10.9 SECONDS (9.4-12.5) 09/06/17 23:30 INR 0.96 (0.93-1.08) 09/06/17 23:30 APTT 30.4 Seconds (25.1-36.5) 09/06/17 23:30 Attending/Attestation - Attestation I have personally seen and examined this patient.: Yes I have fully participated in the care of the patient.: Yes I have reviewed all pertinent clinical information, including history, physical exam and plan: Yes Notes (Text): 09/11/17 12:04 I have seen and examined patient with GI fellow and veterinary medical officer. She is seen sitting in chair, appears quite comfortable. She denies abdominal pain, nausea, vomiting, fever/chills. Tolerating PO diet without difficulty. HTN Hyperlipidemia Cholecystitis Choledocholithiasis - s/p ERCP with needle knife sphincterotomy, PD stent placement, stone extraction - Diet as tolerated - LFTs continue to trend down, monitor - Continue with antibiotic therapy - Follow up surgical recommendations regarding timing of cholecystectomy - Patient should have abdominal XR within 2 weeks to determine PD stent migration and should have subsequent outpatient follow up - No further planned GI intervention, will sign off case. Please reconsult as necessary, thank you.
[2017-09-11 08:24] LABS: CERULOPLASMIN 34 mg/dL (18-53)
--- NOTE | 2017-09-11 09:42 | PN ---
DATE: 09/10/2017 SUBJECTIVE: Patient is 81 years old, seen and examined, doing well. Her abdominal pain has improved. She is able to tolerate food. Patient has EUS and ERCP done yesterday and had stone removed and had stent placed. PHYSICAL EXAMINATION: GENERAL: She is comfortable. No nausea or vomiting. Tolerating food. VITAL SIGNS: She is afebrile. Pulse 91, respirations 20, blood pressure 145/94. LUNGS: Bilateral good air flow. No rhonchi or crackles. HEART: S1, S2 audible. ABDOMEN: Soft, obese, nontender. No rebound. No guarding. NEUROLOGIC: She is awake, alert, oriented, able to communicate. LABORATORY DATA: WBC is 18.7, hemoglobin 12.9, hematocrit 38, platelets 187. Chemistry: Sodium 142, potassium 3.8, chloride 109, CO2 of 23, BUN 5, creatinine 0.4, blood sugar of 97. Her AST 105, ALT 159, alk phos 194, lipase is 1822, amylase 255. ASSESSMENT: 1. Choledocholithiasis, status post endoscopic retrograde cholangiopancreatography and removal of common bile duct stone. 2. Acute cholecystitis, resolving. 3. Hypertension. 4. Hyperlipidemia. 5. Pancreatitis secondary to manipulation of common bile duct and stenting. PLAN: Patient's diet has been advanced. We will continue her on Flagyl. We will follow up her CBC, CMP in a.m. If it is trending down, we will make a discharge plan. A lot of physical therapy also. If patient is not deconditioned, she can be sent home, otherwise we might consider TCU evaluation. Lillian Gan MD
[2017-09-11] MEDS: POLYETHYLENE GLYCOL 3350 17 GM/Dose PACKET PO SCH ×2 (09:50→17:51)
[2017-09-11] MEDS: cefTRIAXone 1 gm 1 GM/100 ML BAG IVPB SCH (09:51)
--- NOTE | 2017-09-11 10:04 | CP.PCM.PN ---
Subjective - Date & Time of Evaluation Date of Evaluation: 09/11/17 Time of Evaluation: 07:10 - Subjective Subjective: Patient seen and examined at bedside this AM. Patient denies nausea, vomiting, abdominal pain, tolerated her heart healthy diet yesterday. Objective - Vital Signs/Intake and Output Vital Signs (last 24 hours): Temp Pulse Resp BP Pulse Ox 98.5 F 89 22 149/78 96 09/11/17 06:00 09/11/17 06:00 09/11/17 06:00 09/11/17 06:00 09/11/17 06:00 Intake and Output: 09/11/17 09/11/17 06:59 18:59 Intake Total 840 Output Total 950 Balance -110 - Medications Medications: Current Medications Acetaminophen (Tylenol 325mg Tab) 650 mg PO Q4H PRN PRN Reason: Fever >100.5 F Last Admin: 09/08/17 23:28 Dose: 650 mg Metronidazole (Flagyl) 250 mg in 50 mls @ 100 mls/hr IV Q8 [facility] PRN Reason: Protocol Stop: 09/12/17 14:01 Last Admin: 09/11/17 05:42 Dose: 100 mls/hr Ceftriaxone Sodium (Rocephin 1 Gram Ivpb) 1 gm in 100 mls @ 100 mls/hr IVPB DAILY [facility] PRN Reason: Protocol Stop: 09/11/17 10:59 Last Admin: 09/10/17 09:42 Dose: 100 mls/hr Morphine Sulfate (Morphine) 2 mg IVP Q4H PRN PRN Reason: Pain, moderate (4-7) Ondansetron HCl (Zofran Inj) 4 mg IVP Q4H PRN PRN Reason: Nausea/Vomiting Pantoprazole Sodium (Protonix Inj) 40 mg IVP DAILY [facility] Last Admin: 09/10/17 09:43 Dose: 40 mg Polyethylene Glycol (Miralax) 17 gm PO BID [facility] Last Admin: 09/10/17 18:06 Dose: 17 gm - Labs Labs: 09/11/17 05:30 09/11/17 05:30 PT 10.9 SECONDS (9.4-12.5) 09/06/17 23:30 INR 0.96 (0.93-1.08) 09/06/17 23:30 APTT 30.4 Seconds (25.1-36.5) 09/06/17 23:30 - Constitutional Appears: Well, Non-toxic, No Acute Distress - Head Exam Head Exam: ATRAUMATIC, NORMOCEPHALIC - Eye Exam Eye Exam: Normal appearance. absent: Conjunctival injection, Scleral icterus - ENT Exam ENT Exam: Mucous Membranes Moist, Normal Oropharynx - Respiratory Exam Respiratory Exam: NORMAL BREATHING PATTERN. absent: Accessory Muscle Use, Respiratory Distress - GI/Abdominal Exam GI & Abdominal Exam: Soft. absent: Distended, Tenderness - Extremities Exam Extremities Exam: absent: Calf Tenderness, Pedal Edema, Tenderness - Neurological Exam Neurological Exam: Alert, Awake, Oriented x3 - Psychiatric Exam Psychiatric exam: Normal Affect, Normal Mood - Skin Skin Exam: Dry, Intact, Normal Color, Warm Assessment and Plan - Assessment and Plan (Free Text) Assessment: 81F with choledocholithiasis s/p ERCP with CBD stone removal and stent placement in the pancreatic duct and cholelithiasis vs acute cholecystitis vs intrahepatic pathology WBC increased to 20 LFT's trending down amylase and lipase trending down afebrile, VSS Plan: -Repeat HIDA scan today to re-assess for acute cholecystitis -NPO for HIDA scan, then consider advancing diet per GI recs -F/U GI recs -Trend CBC/CMP, repeat amylase and lipase in the AM -PRN pain and nausea medications -DVT ppx -Monitor vitals and exam closely -further surgical planning pending HIDA Discussed with Dr. Billy Mccord, PGY2
[2017-09-11 13:04] VITALS: RESP 20
--- NOTE | 2017-09-11 15:52 | CP.PCM.PCO ---
Physician Communication Note - Physician Communication Note Physician Communication Note: WBC 20K/LFTdropping-HIDA Now-Cannot d/c
[2017-09-11 16:50] VITALS: BP 170/98
--- NOTE | 2017-09-11 18:09 | NM ---
PROCEDURE: Nuclear Medicine Hepatobiliary Scan HISTORY: r/o cystic duct obstruction COMPARISON: 09/07/2017 hepatobiliary scan. 09/07/2017 MRCP Summary of findings on the comparison examination: Large gallstone with fluid surrounding the gallbladder suspicious for cholecystitis. TECHNIQUE: 5.3 mCi of technetium 99m Mebrofenin was administered intravenously. Planar images of the abdomen were obtained at 5 min intervals to 60 mins. Delayed images were also obtained. FINDINGS: LIVER: Timely and homogenous uptake. COMMON BILE DUCT: identified at 15 mins. GALLBLADDER: Not identified at 4 hours. SMALL BOWEL: Identified at 15 mins. IMPRESSION: Abnormal Hepatobiliary Scan. The cystic duct is occluded presumptive evidence for acute cholecystitis. .
[2017-09-11 19:56] VITALS: PULSE 20; TEMP 98.7
--- NOTE | 2017-09-11 20:44 | CP.PCM.PCO ---
Physician Communication Note - Physician Communication Note Physician Communication Note: HIDA viz @ 4Hrs/Cons Rx Recommended/Interval cholecystectomy advised
[2017-09-12] MEDS ORDERED: levoFLOXacin 500 mg in D5W 500 MG/100 ML BAG IVPB SCH (10:00)
--- NOTE | 2017-09-12 12:03 | DS ---
HISTORY OF PRESENT ILLNESS: The patient is 81 years old, seen and examined today, seems to be comfortable. Denies any nausea, vomiting or diarrhea. The patient was initially admitted with abdominal pain of 1-day duration. She was found to have acute cholecystitis, however, her LFTs were abnormal. was consulted. The patient went for ERCP and had stent placed and stone removed with significant improvement after that. PHYSICAL EXAMINATION: GENERAL: On examination today, she is awake, alert, oriented, communicative. VITAL SIGNS: She is afebrile, pulse 64, respirations 20, blood pressure 149/78. LUNGS: Bilateral good airflow. No rhonchi or crackle. HEART: S1 and S2 audible. ABDOMEN: Soft. Nontender. No rebound. No guarding. NEUROLOGIC: She is awake, alert, oriented, able to communicate. EXTREMITIES: Moves all extremities. Bilateral legs, no edema. LABORATORY DATA: WBC is 20.8, hemoglobin 11.8, hematocrit 35.6, platelet of 177. Chemistry, sodium 142, potassium 3.6, chloride 106, CO2 of 23, BUN 6, creatinine 0.5, blood sugar of 120. Her AST is 76, it has come down from 177 to 76, ALT was 216 and that has dropped to 125. ASSESSMENT AND PLAN: 1. Acute cholecystitis. 2. Cholelithiasis. 3. Choledocholithiasis, status post endoscopic retrograde cholangiopancreatography. She had stone removal and stent placed. 4. Hypertension. 5. Moderate obesity. PLAN: The patient is currently on metronidazole and Levaquin and she is being transferred to TCU to complete her course of antibiotics. We will follow up her LFT closely. She is being transferred to TCU. I will follow there. Lillian Gan MD
[2017-09-13 07:50] LABS: BASO # 0.04 K/mm3 (0.0-2.0); BASO % 0.2 % (0.0-3.0); EOS # 0.1 (0.0-0.7); EOS % 0.6 % (1.5-5.0); GRAN # 10.71 (1.4-6.5); GRAN % 46.2 % (50.0-68.0); HEMOGLOBIN 11.9 g/dL (12.0-16.0); LYMPH # 10.8 (1.2-3.4); LYMPH % 46.6 % (22.0-35.0); MEAN CELL VOLUME 89.9 fl (80.0-105.0); MEAN CORPUSCULAR HEMOGLOBIN 29.3 pg (25.0-35.0); MEAN CORPUSCULAR HGB CONC 32.6 g/dl (31.0-37.0); MEAN PLATELET VOLUME 9.9 fl (7.0-11.0); MONO # 1.5 (0.1-0.6); MONO % 6.4 % (1.0-6.0); RBC 4.06 10^6/uL (3.5-6.1); RED CELL DISTRIBUTION WIDTH 14.2 % (11.5-14.5); WHITE BLOOD COUNT 23.1 10^3/ul (4.5-11.0)
== END 2017-09-11 20:45 | DRG 444 ==
LOC: ED 23:05 → ERH 09-07 03:09 → 3RNO 09-07 04:03
PROVIDERS: ADMIT Internal Medicine; ATTEND Internal Medicine
PROC: 0FC98ZZ Extirpation of Matter from Common Bile Duct, Via Natural or Artificial Opening Endoscopic (ICD-10-PCS; principal; 2017-09-09 12:00)
PROC: 0F7D8DZ Dilation of Pancreatic Duct with Intraluminal Device, Via Natural or Artificial Opening Endoscopic (ICD-10-PCS; 2017-09-09 12:00)
PROC: 0DJ08ZZ Inspection of Upper Intestinal Tract, Via Natural or Artificial Opening Endoscopic (ICD-10-PCS; 2017-09-09 12:00)
PROC: BD47ZZZ Ultrasonography of Gastrointestinal Tract (ICD-10-PCS; 2017-09-09 12:00)
PROC: BF40ZZZ Ultrasonography of Bile Ducts (ICD-10-PCS; 2017-09-09 12:00)
DX: K80.62 Calculus of gallbladder and bile duct with acute cholecystitis without obstruction (principal); K85.90 Acute pancreatitis without necrosis or infection, unspecified; R65.10 Systemic inflammatory response syndrome (SIRS) of non-infectious origin without acute organ dysfunction; E66.01 Morbid (severe) obesity due to excess calories; E78.00 Pure hypercholesterolemia, unspecified; I10 Essential (primary) hypertension; K59.09 Other constipation; K29.80 Duodenitis without bleeding; E87.6 Hypokalemia; K52.9 Noninfective gastroenteritis and colitis, unspecified; M81.0 Age-related osteoporosis without current pathological fracture; Y84.8 Other medical procedures as the cause of abnormal reaction of the patient, or of later complication, without mention of misadventure at the time of the procedure; Z90.710 Acquired absence of both cervix and uterus

== ENCOUNTER 2017-09-11 20:15 | Inpatient (IN) | payer OTHER, MEDICARE ==
[2017-09-11] MEDS ORDERED: Influenza Vaccine 60 mcg/0.5 mL SYR (4YR UP) IM ONE (21:58)
[2017-09-11] MEDS ORDERED: Pneumococcal 23-Valent Vaccine IM ONE (21:58)
[2017-09-11] MEDS: metroNIDAZOLE IV 250mg/50 ml 250 MG/50 ML BAG IVPB SCH (23:13)
[2017-09-12] MEDS: metroNIDAZOLE IV 250mg/50 ml 250 MG/50 ML BAG IVPB SCH ×3 (05:24→21:35)
[2017-09-12] MEDS: levoFLOXacin 500 mg in D5W 500 MG/100 ML BAG IVPB SCH (05:25)
[2017-09-12 07:53] LABS: BASO # 0.06 K/mm3 (0.0-2.0); BASO % 0.2 % (0.0-3.0); EOS # 0.1 (0.0-0.7); EOS % 0.5 % (1.5-5.0); GRAN # 12.82 (1.4-6.5); HEMOGLOBIN 12.8 g/dL (12.0-16.0); MEAN CELL VOLUME 89.6 fl (80.0-105.0); MEAN CORPUSCULAR HEMOGLOBIN 29.6 pg (25.0-35.0); MEAN CORPUSCULAR HGB CONC 33.1 g/dl (31.0-37.0); MEAN PLATELET VOLUME 9.9 fl (7.0-11.0); MONO # 1.7 (0.1-0.6); MONO % 6.3 % (1.0-6.0); RBC 4.32 10^6/uL (3.5-6.1); RED CELL DISTRIBUTION WIDTH 13.9 % (11.5-14.5)
[2017-09-12 08:04] LABS: ALB/GLOB RATIO 1.1 (1.1-1.8); ALBUMIN 3.4 g/dL (3.0-4.8); ALT/SGPT 102 U/L (7-56); AST/SGOT 61 U/L (14-36); BLOOD UREA NITROGEN 6 mg/dL (7-21); CALCIUM 8.8 mg/dL (8.4-10.5); GFR AFRICAN-AMERICAN > 60; GFR NON-AFRICAN AMERICAN > 60
[2017-09-12 08:33] LABS: WHITE BLOOD COUNT 26.7 10^3/ul (4.5-11.0)
[2017-09-12] MEDS: POLYETHYLENE GLYCOL 3350 17 GM/Dose PACKET PO SCH ×2 (10:50→17:56)
--- NOTE | 2017-09-12 12:08 | CP.PCM.PCO ---
Physician Communication Note - Physician Communication Note Physician Communication Note: Passed CD Stone/Rising WBC-?GB Infection/CT Scan- ?lap evangelist
[2017-09-12] MEDS ORDERED: Simethicone 80 mg Chewtab PO PRN (12:09)
--- NOTE | 2017-09-12 13:57 | CP.PCM.PN ---
Subjective - Date & Time of Evaluation Date of Evaluation: 09/12/17 Time of Evaluation: 13:53 - Subjective Subjective: Surgery: Dr. Cervantes Patient reports tightness in the upper abdomen with meals. Denies f/c/n/v. Denies pain. Reports constipation. Objective - Vital Signs/Intake and Output Vital Signs (last 24 hours): Temp Pulse Resp BP Pulse Ox 98.8 F 95 H 18 143/75 95 09/11/17 21:37 09/11/17 21:37 09/11/17 21:37 09/11/17 21:37 09/11/17 21:27 - Medications Medications: Current Medications Acetaminophen (Tylenol 325mg Tab) 650 mg PO Q4H PRN PRN Reason: Fever >100.5 F Metronidazole (Flagyl) 250 mg in 50 mls @ 100 mls/hr IVPB Q8 [facility] PRN Reason: Protocol Stop: 09/16/17 22:01 Last Admin: 09/12/17 05:24 Dose: 100 mls/hr Levofloxacin/Dextrose (Levaquin 500mg) 500 mg in 100 mls @ 100 mls/hr IVPB 0600 [facility] PRN Reason: Protocol Last Admin: 09/12/17 05:25 Dose: 100 mls/hr Ondansetron HCl (Zofran Inj) 4 mg IVP Q4H PRN PRN Reason: Nausea/Vomiting Pantoprazole Sodium (Protonix Ec Tab) 20 mg PO 0600,1600 [facility] Polyethylene Glycol (Miralax) 17 gm PO BID [facility] Last Admin: 09/12/17 10:50 Dose: 17 gm Simethicone (Mylicon Chew Tab) 80 mg PO [facility] PRN PRN Reason: GI distress - Labs Labs: 09/12/17 06:45 09/12/17 06:45 - Constitutional Appears: Non-toxic, No Acute Distress - Head Exam Head Exam: ATRAUMATIC, NORMOCEPHALIC - Eye Exam Eye Exam: EOMI, Normal appearance - ENT Exam ENT Exam: Mucous Membranes Moist - Respiratory Exam Respiratory Exam: NORMAL BREATHING PATTERN. absent: Respiratory Distress - Cardiovascular Exam Cardiovascular Exam: REGULAR RHYTHM. absent: Tachycardia - GI/Abdominal Exam GI & Abdominal Exam: Soft. absent: Distended, Tenderness - Neurological Exam Neurological Exam: Alert, Awake - Psychiatric Exam Psychiatric exam: Normal Affect, Normal Mood Assessment and Plan - Assessment and Plan (Free Text) Assessment: 81 y/o female w/ choledocholithiasis, resolving and findings concerning for acute cholecystits Plan: -may need lap evangelist -leukocytosis worsening -daily labs -cont abx -cont diet -further recs per Dr. Cervantes [facility]ite PGY3
--- NOTE | 2017-09-12 14:54 | CP.PCM.PN ---
<Evelyne Downs - Last Filed: 09/12/17 14:50> Subjective - Date & Time of Evaluation Date of Evaluation: 09/12/17 Time of Evaluation: 09:20 - Subjective Subjective: GI fellow PGY4 Progress Note Pt seen and evaluated in TCU, pt doing well with no fevers, chills, nausea or vomiting. Pt reports band like sensation across upper abdomen. No BM in days. ROS: A 12pt ROS was negative except as above. Objective - Vital Signs/Intake and Output Vital Signs (last 24 hours): Temp Pulse Resp BP Pulse Ox 98.8 F 95 H 18 143/75 95 09/11/17 21:37 09/11/17 21:37 09/11/17 21:37 09/11/17 21:37 09/11/17 21:27 - Medications Medications: Current Medications Acetaminophen (Tylenol 325mg Tab) 650 mg PO Q4H PRN PRN Reason: Fever >100.5 F Metronidazole (Flagyl) 250 mg in 50 mls @ 100 mls/hr IVPB Q8 [facility] PRN Reason: Protocol Stop: 09/16/17 22:01 Last Admin: 09/12/17 05:24 Dose: 100 mls/hr Levofloxacin/Dextrose (Levaquin 500mg) 500 mg in 100 mls @ 100 mls/hr IVPB 0600 [facility] PRN Reason: Protocol Last Admin: 09/12/17 05:25 Dose: 100 mls/hr Ondansetron HCl (Zofran Inj) 4 mg IVP Q4H PRN PRN Reason: Nausea/Vomiting Pantoprazole Sodium (Protonix Ec Tab) 20 mg PO 0600,1600 [facility] Polyethylene Glycol (Miralax) [address] [facility] Last Admin: 09/12/17 10:50 Dose: 17 gm Simethicone (Mylicon Chew Tab) 80 mg PO [facility] PRN PRN Reason: GI distress - Labs Labs: 09/12/17 06:45 09/12/17 06:45 - Constitutional Appears: Non-toxic, No Acute Distress - Head Exam Head Exam: ATRAUMATIC, NORMAL INSPECTION, NORMOCEPHALIC - Eye Exam Eye Exam: EOMI, Normal appearance, PERRL - ENT Exam ENT Exam: Mucous Membranes Moist - Neck Exam Neck Exam: Full ROM - Respiratory Exam Respiratory Exam: Clear to Ausculation Bilateral, NORMAL BREATHING PATTERN - Cardiovascular Exam Cardiovascular Exam: REGULAR RHYTHM - GI/Abdominal Exam GI & Abdominal Exam: Soft, Normal Bowel Sounds. absent: Distended, Guarding, Rigid, Tenderness - Neurological Exam Neurological Exam: Alert, Awake, Oriented x3 - Psychiatric Exam Psychiatric exam: Normal Affect, Normal Mood - Skin Skin Exam: Dry, Intact, Normal Color, Warm Assessment and Plan - Assessment and Plan (Free Text) Assessment: Patient is an 81 y/o with pmh of htn, hld and osteoporosis who presented with right upper quadrant abdominal pain, nausea and vomiting and was found to have transaminitis and was found have cholelithiasis suspicious for cholecystitis. Patient initially had CT abdomen and pelvis revealing cholelithaisis, colitis and mild duodenitis, abdominal u/s with acute cholitis, MRCP with large 17 mm gallstone, with fluid surrounding gallbladder suspicious for cholecystitis. 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 S/P ERCP w/ spincterotomy and PD stent placement and small stone extraction, POD#3 1-Choledocholithiasis 2-Abdominal pain likely due to above 3-Cholecystitis 4-Leukocytosis 5. Constipation Plan: -Continue supportive care with pain control and anti-emetics - Recommend cholecystectomy in setting of elevated WBC - Continue with antibiotics - Diet as tolerated - On protonix for GI prophylaxis. - IV hydration - Bowel regimen with miralax and dulcolax -Please call with any questions or concerns <Barney TOMLINSON,Germaine - Last Filed: 09/12/17 16:54> Objective - Vital Signs/Intake and Output Vital Signs (last 24 hours): Temp Pulse Resp BP Pulse Ox 98.2 F 96 H 20 130/86 100 09/12/17 12:00 09/12/17 12:00 09/12/17 12:00 09/12/17 12:00 09/12/17 12:00 - Medications Medications: Current Medications Acetaminophen (Tylenol 325mg Tab) 650 mg PO Q4H PRN PRN Reason: Fever >100.5 F Metronidazole (Flagyl) 250 mg in 50 mls @ 100 mls/hr IVPB Q8 [facility] PRN Reason: Protocol Stop: 09/16/17 22:01 Last Admin: 09/12/17 05:24 Dose: 100 mls/hr Levofloxacin/Dextrose (Levaquin 500mg) 500 mg in 100 mls @ 100 mls/hr IVPB 0600 [facility] PRN Reason: Protocol Last Admin: 09/12/17 05:25 Dose: 100 mls/hr Ondansetron HCl (Zofran Inj) 4 mg IVP Q4H PRN PRN Reason: Nausea/Vomiting Pantoprazole Sodium (Protonix Ec Tab) 20 mg PO 0600,1600 [facility] Polyethylene Glycol (Miralax) 17 gm PO BID [facility] Last Admin: 09/12/17 10:50 Dose: 17 gm Simethicone (Mylicon Chew Tab) 80 mg PO [facility] PRN PRN Reason: GI distress - Labs Labs: 09/12/17 06:45 09/12/17 06:45 Attending/Attestation - Attestation I have personally seen and examined this patient.: Yes I have fully participated in the care of the patient.: Yes I have reviewed all pertinent clinical information, including history, physical exam and plan: Yes Notes (Text): 09/12/17 16:52 Patient moved to TCU. GI recalled for elevated wbc. In a nutshell this is a 81 year old female admitted with epigastric pain, elevated LFTs, found to have gallstones now s/p EUS showing choledocholithaisis and ERCP with sphincterotomy and stone extraction. Her LFT were downtrending but now she is comlaining of abdominal pain and biochemical evidence of SIRS. No evidence of pancreatitis. Continue antibiotics. Strongly recommend cholecystectomy. Discussed with primary attending.
[2017-09-12] MEDS ORDERED: Bisacodyl 5mg EC Tab PO ONE (14:55)
[2017-09-12] MEDS: Pantoprazole 20 mg EC Tab PO SCH (17:56)
--- NOTE | 2017-09-13 01:59 | HP ---
HISTORY OF PRESENT ILLNESS: The patient is an 81-year-old, who was admitted on 09/07/2017 with epigastric discomfort, sharp, colicky; she was found to have cholelithiasis with abnormal LFTs. Dr. Bradford was consulted. The patient underwent an ERCP and EUS and had the common bile duct removed. Since then, her LFTs have been improving; however, the patient's white count has not been improving. Since the patient needed IV antibiotics, she was transferred to the TCU to complete her course of antibiotics and further observation. PAST MEDICAL HISTORY: Significant for: 1. Hypertension. 2. Hyperlipidemia. 3. Morbid obesity. 4. Gastritis. PAST SURGICAL HISTORY: Significant for hysterectomy and oophorectomy. ALLERGIES: SHE IS ALLERGIC TO ALENDRONATE. MEDICATIONS AT HOME: She is on amlodipine 10 mg daily and lisinopril 10 mg daily. SOCIAL HISTORY: She lives with her family. Denies smoking, drinking, or alcohol use. REVIEW OF SYSTEMS: She has no significant complaint today. PHYSICAL EXAMINATION GENERAL: On examination, she is awake, alert, oriented, and communicative. VITAL SIGNS: She is afebrile. Pulse 64, respirations 20, and blood pressure 170/98. LUNGS: Bilateral good airflow. No rhonchi or crackles. HEART: S1 and S2 audible. ABDOMEN: Soft, obese, and nontender. No rebound. No guarding. NEUROLOGIC: The patient is awake and alert. Able to communicate. LABORATORY DATA: White count is 20.8, hemoglobin 11,8, and hematocrit 35.6. Chemistry: Sodium 142, potassium 3.6, chloride 106, CO2 26, BUN 6, creatinine 0.5, blood sugar of 120. Total bilirubin is 3.2, AST 76, ALT 125, and alcohol 6-10. ASSESSMENT: 1. Acute cholecystitis with kevin-cholecystic fluid. 2. Common bile duct obstruction. 3. Hypertension. 4. Hyperlipidemia. PLAN: We will continue the patient on current antibiotic. I spoke to Dr. Corley. She is urging and recommending to have cholecystectomy done - that is the reason why her white count and her LFTs are not improving significantly. Discussed with Dr. Cervantes, and there is a plan to have cholecystectomy done next week. Lillian Gan MD [facility] # [id number]
[2017-09-13] MEDS: levoFLOXacin 500 mg in D5W 500 MG/100 ML BAG IVPB SCH (05:16)
[2017-09-13] MEDS: metroNIDAZOLE IV 250mg/50 ml 250 MG/50 ML BAG IVPB SCH ×3 (05:16→21:21)
[2017-09-13] MEDS: Pantoprazole 20 mg EC Tab PO SCH ×2 (05:17→17:31)
[2017-09-13 08:06] LABS: ALB/GLOB RATIO 1.1 (1.1-1.8); ALBUMIN 3.1 g/dL (3.0-4.8); ALT/SGPT 81 U/L (7-56); AMYLASE 202 U/L (35-125); AST/SGOT 47 U/L (14-36); BLOOD UREA NITROGEN 7 mg/dL (7-21); CALCIUM 8.7 mg/dL (8.4-10.5); GFR AFRICAN-AMERICAN > 60; GFR NON-AFRICAN AMERICAN > 60
--- NOTE | 2017-09-13 08:31 | CP.PCM.PCO ---
Physician Communication Note - Physician Communication Note Physician Communication Note: CT:Pancreatitis Not Cholecystitis/Labs improving w amylase 202
[2017-09-13] MEDS: POLYETHYLENE GLYCOL 3350 17 GM/Dose PACKET PO SCH ×2 (10:52→17:30)
--- NOTE | 2017-09-13 12:15 | CP.PCM.PN ---
Subjective - Date & Time of Evaluation Date of Evaluation: 09/13/17 Time of Evaluation: 07:50 - Subjective Subjective: Patient seen and examined at bedside this AM. No adverse events overnight Patient had a CT abdomen and pelvis which showed acute pancreatitis. Patient complains of mild epigastric abdominal pain after eating breakfast but no nausea or vomiting or fevers Objective - Vital Signs/Intake and Output Vital Signs (last 24 hours): Temp Pulse Resp BP Pulse Ox 98.2 F 96 H 20 130/86 100 09/12/17 12:00 09/12/17 12:00 09/12/17 12:00 09/12/17 12:00 09/12/17 12:00 - Medications Medications: Current Medications Acetaminophen (Tylenol 325mg Tab) 650 mg PO Q4H PRN PRN Reason: Fever >100.5 F Enoxaparin Sodium (Lovenox) 40 mg SC DAILY [facility] PRN Reason: Protocol Metronidazole (Flagyl) 250 mg in 50 mls @ 100 mls/hr IVPB Q8 [facility] PRN Reason: Protocol Stop: 09/16/17 22:01 Last Admin: 09/13/17 05:16 Dose: 100 mls/hr Levofloxacin/Dextrose (Levaquin 500mg) 500 mg in 100 mls @ 100 mls/hr IVPB 0600 [facility] PRN Reason: Protocol Last Admin: 09/13/17 05:16 Dose: 100 mls/hr Ondansetron HCl (Zofran Inj) 4 mg IVP Q4H PRN PRN Reason: Nausea/Vomiting Pantoprazole Sodium (Protonix Ec Tab) 20 mg PO 0600,1600 [facility] Last Admin: 09/13/17 05:17 Dose: 20 mg Polyethylene Glycol (Miralax) 17 gm PO BID [facility] Last Admin: 09/13/17 10:52 Dose: Not Given Simethicone (Mylicon Chew Tab) 80 mg PO [facility] PRN PRN Reason: GI distress - Labs Labs: 09/12/17 06:45 09/13/17 07:20 - Constitutional Appears: Well, Non-toxic, No Acute Distress - Head Exam Head Exam: ATRAUMATIC, NORMOCEPHALIC - Eye Exam Eye Exam: Normal appearance. absent: Conjunctival injection, Scleral icterus - ENT Exam ENT Exam: Mucous Membranes Moist, Normal Oropharynx - Respiratory Exam Respiratory Exam: NORMAL BREATHING PATTERN. absent: Accessory Muscle Use, Respiratory Distress - Cardiovascular Exam Cardiovascular Exam: RRR - GI/Abdominal Exam GI & Abdominal Exam: Soft, Tenderness (mild tenderness in the epigastrium). absent: Distended - Extremities Exam Extremities Exam: absent: Calf Tenderness, Pedal Edema, Tenderness - Neurological Exam Neurological Exam: Alert, Awake, Oriented x3 - Psychiatric Exam Psychiatric exam: Normal Affect, Normal Mood - Skin Skin Exam: Dry, Intact, Normal Color, Warm Assessment and Plan - Assessment and Plan (Free Text) Assessment: 81 y/o female w/cholelithiasis, choledocholithiasis s/p ERCP with acute pancreatitis. Plan: -persistent leukocytosis, LFT's down trending -CLD d/t acute pancreatitis -trend amylase, CBC, CMP -DVT/GI ppx -Continue antibiotics -no cholecystectomy until after the acute pancreatitis resolves Seen and examined with Dr. Billy Mccord, PGY2
[2017-09-13] MEDS: Enoxaparin 40 mg Syringe SC SCH (14:00)
[2017-09-14] MEDS: metroNIDAZOLE IV 250mg/50 ml 250 MG/50 ML BAG IVPB SCH ×3 (05:07→22:18)
[2017-09-14] MEDS: Pantoprazole 20 mg EC Tab PO SCH ×2 (05:12→17:22)
[2017-09-14] MEDS: levoFLOXacin 500 mg in D5W 500 MG/100 ML BAG IVPB SCH (05:46)
[2017-09-14 07:09] LABS: BASO # 0.03 K/mm3 (0.0-2.0); BASO % 0.2 % (0.0-3.0); EOS # 0.1 (0.0-0.7); EOS % 0.7 % (1.5-5.0); GRAN # 8.04 (1.4-6.5); HEMOGLOBIN 11.2 g/dL (12.0-16.0); LYMPH # 9.8 (1.2-3.4); LYMPH % 51.5 % (22.0-35.0); MEAN CELL VOLUME 90.2 fl (80.0-105.0); MEAN CORPUSCULAR HEMOGLOBIN 29.6 pg (25.0-35.0); MEAN CORPUSCULAR HGB CONC 32.8 g/dl (31.0-37.0); MEAN PLATELET VOLUME 9.6 fl (7.0-11.0); MONO # 1.1 (0.1-0.6); MONO % 5.6 % (1.0-6.0); RBC 3.78 10^6/uL (3.5-6.1); RED CELL DISTRIBUTION WIDTH 14.4 % (11.5-14.5); WHITE BLOOD COUNT 19.1 10^3/ul (4.5-11.0)
[2017-09-14] MEDS ORDERED: Lactated Ringer's 1,000 ML IV SCH (07:30)
[2017-09-14 07:38] LABS: ALT/SGPT 69 U/L (7-56); AMYLASE 74 U/L (35-125); AST/SGOT 38 U/L (14-36); BLOOD UREA NITROGEN 7 mg/dL (7-21); CALCIUM 8.9 mg/dL (8.4-10.5); GFR AFRICAN-AMERICAN > 60; GFR NON-AFRICAN AMERICAN > 60
[2017-09-14 07:41] LABS: PROTHROMBIN TIME 11.9 SECONDS (9.4-12.5)
[2017-09-14 07:42] LABS: INR 1.03 (0.93-1.08); PARTIAL THROMBOPLASTIN TIME 25.3 Seconds (25.1-36.5)
--- NOTE | 2017-09-14 07:58 | CP.PCM.PCO ---
Physician Communication Note - Physician Communication Note Physician Communication Note: Amylase dropping with clear liquids
--- NOTE | 2017-09-14 07:59 | CP.PCM.PCO ---
Physician Communication Note - Physician Communication Note Physician Communication Note: BUN/Cr doubled-NO I&O on chart/?still obstructed
[2017-09-14] MEDS: Enoxaparin 40 mg Syringe SC SCH (09:21)
[2017-09-14] MEDS: Lactated Ringer's 1,000 ML IV SCH ×2 (09:21→22:19)
[2017-09-14] MEDS: POLYETHYLENE GLYCOL 3350 17 GM/Dose PACKET PO SCH ×2 (09:21→17:22)
--- NOTE | 2017-09-14 14:59 | CP.PCM.PN ---
Subjective - Date & Time of Evaluation Date of Evaluation: 09/14/17 Time of Evaluation: 14:57 - Subjective Subjective: Surgery: Dr. Cervantes Patient doing well. Tightness in abdomen resolved. She denies n/v/f/c. Tolerating CLD. Objective - Vital Signs/Intake and Output Vital Signs (last 24 hours): Temp Pulse Resp BP Pulse Ox 98.2 F 99 H 16 122/77 100 09/13/17 16:00 09/13/17 16:00 09/13/17 16:00 09/13/17 16:00 09/13/17 16:00 - Medications Medications: Current Medications Acetaminophen (Tylenol 325mg Tab) 650 mg PO Q4H PRN PRN Reason: Fever >100.5 F Enoxaparin Sodium (Lovenox) 40 mg SC DAILY [facility] PRN Reason: Protocol Last Admin: 09/14/17 09:21 Dose: 40 mg Metronidazole (Flagyl) 250 mg in 50 mls @ 100 mls/hr IVPB Q8 [facility] PRN Reason: Protocol Stop: 09/16/17 22:01 Last Admin: 09/14/17 14:10 Dose: 100 mls/hr Levofloxacin/Dextrose (Levaquin 500mg) 500 mg in 100 mls @ 100 mls/hr IVPB 0600 [facility] PRN Reason: Protocol Last Admin: 09/14/17 05:46 Dose: 100 mls/hr Lactated Ringer's (Lactated Ringer's) 1,000 mls @ 100 mls/hr IV .Q10H [facility] Last Admin: 09/14/17 09:21 Dose: 100 mls/hr Ondansetron HCl (Zofran Inj) 4 mg IVP Q4H PRN PRN Reason: Nausea/Vomiting Pantoprazole Sodium (Protonix Ec Tab) 20 mg PO 0600,1600 [facility] Last Admin: 09/14/17 05:12 Dose: 20 mg Polyethylene Glycol (Miralax) 17 gm PO BID [facility] Last Admin: 09/14/17 09:21 Dose: Not Given Simethicone (Mylicon Chew Tab) 80 mg PO [facility] PRN PRN Reason: GI distress - Labs Labs: 09/14/17 06:50 09/14/17 06:50 PT 11.9 SECONDS (9.4-12.5) 09/14/17 06:50 INR 1.03 (0.93-1.08) 09/14/17 06:50 APTT 25.3 Seconds (25.1-36.5) 09/14/17 06:50 - Constitutional Appears: Non-toxic, No Acute Distress - Head Exam Head Exam: ATRAUMATIC, NORMOCEPHALIC - Eye Exam Eye Exam: EOMI, Normal appearance - ENT Exam ENT Exam: Mucous Membranes Moist - Respiratory Exam Respiratory Exam: NORMAL BREATHING PATTERN. absent: Respiratory Distress - Cardiovascular Exam Cardiovascular Exam: REGULAR RHYTHM. absent: Tachycardia - GI/Abdominal Exam GI & Abdominal Exam: Soft. absent: Distended, Guarding, Tenderness, Rebound Assessment and Plan - Assessment and Plan (Free Text) Assessment: 81 y/o female w/cholelithiasis, choledocholithiasis s/p ERCP with acute pancreatitis. Plan: -cont CLD -repeat labs in am -WBC and lipase improved -OOB -IS use -bowel regimen -further recs per Dr. Cervantes [facility] PGY3
[2017-09-15] MEDS: metroNIDAZOLE IV 250mg/50 ml 250 MG/50 ML BAG IVPB SCH ×3 (05:32→22:31)
[2017-09-15] MEDS: levoFLOXacin 500 mg in D5W 500 MG/100 ML BAG IVPB SCH (05:33)
[2017-09-15] MEDS: Lactated Ringer's 1,000 ML IV SCH ×4 (05:33→22:34)
[2017-09-15] MEDS: Pantoprazole 20 mg EC Tab PO SCH ×2 (05:34→17:00)
[2017-09-15 07:42] LABS: BASO # 0.04 K/mm3 (0.0-2.0); BASO % 0.2 % (0.0-3.0); EOS # 0.2 (0.0-0.7); EOS % 0.9 % (1.5-5.0); GRAN # 7.43 (1.4-6.5); HEMOGLOBIN 11.2 g/dL (12.0-16.0); LYMPH # 8.4 (1.2-3.4); LYMPH % 49.8 % (22.0-35.0); MEAN CELL VOLUME 91.3 fl (80.0-105.0); MEAN CORPUSCULAR HEMOGLOBIN 29.6 pg (25.0-35.0); MEAN CORPUSCULAR HGB CONC 32.4 g/dl (31.0-37.0); MEAN PLATELET VOLUME 9.7 fl (7.0-11.0); MONO # 0.9 (0.1-0.6); MONO % 5.1 % (1.0-6.0); RBC 3.79 10^6/uL (3.5-6.1); RED CELL DISTRIBUTION WIDTH 14.5 % (11.5-14.5); WHITE BLOOD COUNT 16.9 10^3/ul (4.5-11.0)
--- NOTE | 2017-09-15 08:28 | PN ---
DATE: 09/14/2017 SUBJECTIVE: The patient is 80 years old, seen and examined, doing well. Has been on clear liquid diet, does not like it. Does not have any nausea or vomiting. No abdominal discomfort. PHYSICAL EXAMINATION: VITAL SIGNS: She is afebrile, pulse 79, respirations 18, blood pressure 125/70. LUNGS: Bilateral fair airflow. No rhonchi or crackle. HEART: S1 and S2 audible. ABDOMEN: Soft, obese. Slight epigastric discomfort. No rebound. No guarding. NEUROLOGIC: She is awake, alert, oriented. Able to communicate. LABORATORY EXAM: WBC is 19.1, hemoglobin 11, hematocrit 34, platelet 263. Chemistry: Sodium 142, potassium 3.7, chloride 105, CO2 of 26, BUN 7, creatinine 0.4, blood sugar of 119, AST 38, ALT 69, lipase 2472. ASSESSMENT: 1. Acute cholecystitis. 2. Common bile duct stone, status post extraction and stent placement. 3. Leukocytosis. 4. Hypertension. PLAN: We will continue the patient on current antibiotic. Awaiting surgical evaluation for possible cholecystectomy whenever they think it is appropriate. Lillian Gan MD
[2017-09-15 08:36] LABS: ALB/GLOB RATIO 1.2 (1.1-1.8); ALBUMIN 3.1 g/dL (3.0-4.8); ALT/SGPT 65 U/L (7-56); AST/SGOT 40 U/L (14-36); BLOOD UREA NITROGEN 3 mg/dL (7-21); CALCIUM 8.8 mg/dL (8.4-10.5); GFR AFRICAN-AMERICAN > 60; GFR NON-AFRICAN AMERICAN > 60
--- NOTE | 2017-09-15 10:28 | CP.PCM.PN ---
Subjective - Date & Time of Evaluation Date of Evaluation: 09/15/17 Time of Evaluation: 07:20 - Subjective Subjective: Patient seen and examined this AM. patient denies any abdominal pain but epigastric "pressure." Patient denies nausea, vomiting and fevers, is tolerating her CLD and would like to eat Objective - Vital Signs/Intake and Output Vital Signs (last 24 hours): Temp Pulse Resp BP Pulse Ox 98.5 F 79 18 125/70 95 09/14/17 17:46 09/14/17 17:46 09/14/17 17:46 09/14/17 17:46 09/14/17 17:46 - Medications Medications: Current Medications Acetaminophen (Tylenol 325mg Tab) 650 mg PO Q4H PRN PRN Reason: Fever >100.5 F Enoxaparin Sodium (Lovenox) 40 mg SC DAILY [facility] PRN Reason: Protocol Last Admin: 09/14/17 09:21 Dose: 40 mg Metronidazole (Flagyl) 250 mg in 50 mls @ 100 mls/hr IVPB Q8 [facility] PRN Reason: Protocol Stop: 09/16/17 22:01 Last Admin: 09/15/17 05:32 Dose: 100 mls/hr Levofloxacin/Dextrose (Levaquin 500mg) 500 mg in 100 mls @ 100 mls/hr IVPB 0600 [facility] PRN Reason: Protocol Last Admin: 09/15/17 05:33 Dose: 100 mls/hr Lactated Ringer's (Lactated Ringer's) 1,000 mls @ 100 mls/hr IV .Q10H [facility] Last Admin: 09/15/17 05:33 Dose: 100 mls/hr Ondansetron HCl (Zofran Inj) 4 mg IVP Q4H PRN PRN Reason: Nausea/Vomiting Pantoprazole Sodium (Protonix Ec Tab) 20 mg PO 0600,1600 [facility] Last Admin: 09/15/17 05:34 Dose: 20 mg Polyethylene Glycol (Miralax) 17 gm PO BID [facility] Last Admin: 09/14/17 17:22 Dose: Not Given Simethicone (Mylicon Chew Tab) 80 mg PO [facility] PRN PRN Reason: GI distress - Labs Labs: 09/15/17 07:00 09/15/17 07:00 PT 11.9 SECONDS (9.4-12.5) 09/14/17 06:50 INR 1.03 (0.93-1.08) 09/14/17 06:50 APTT 25.3 Seconds (25.1-36.5) 09/14/17 06:50 - Constitutional Appears: Well, Non-toxic, No Acute Distress - Head Exam Head Exam: ATRAUMATIC, NORMOCEPHALIC - Eye Exam Eye Exam: Normal appearance. absent: Conjunctival injection, Scleral icterus - ENT Exam ENT Exam: Mucous Membranes Moist, Normal Oropharynx - Respiratory Exam Respiratory Exam: NORMAL BREATHING PATTERN. absent: Accessory Muscle Use, Respiratory Distress - Cardiovascular Exam Cardiovascular Exam: RRR - GI/Abdominal Exam GI & Abdominal Exam: Soft. absent: Distended, Tenderness - Extremities Exam Extremities Exam: absent: Calf Tenderness, Pedal Edema, Tenderness - Neurological Exam Neurological Exam: Alert, Awake, Oriented x3 - Psychiatric Exam Psychiatric exam: Normal Affect, Normal Mood - Skin Skin Exam: Dry, Intact, Normal Color, Warm Assessment and Plan - Assessment and Plan (Free Text) Assessment: 81F with pancreatitis d/t choledocholithiasis and ERCP with cholelithiasis Plan: Continue CLD today Trend CBC/CMP. if WBC and LFT's continue to down trend will advance diet tomorrow Continue DVT ppx, GI ppx Medical management per primary Encourage ambulation Discussed with Dr. Billy Mccord pgy2
[2017-09-15] MEDS: POLYETHYLENE GLYCOL 3350 17 GM/Dose PACKET PO SCH ×2 (11:00→18:38)
[2017-09-15] MEDS: Enoxaparin 40 mg Syringe SC SCH (11:00)
[2017-09-16] MEDS: Lactated Ringer's 1,000 ML IV SCH ×3 (01:33→11:27)
[2017-09-16] MEDS: metroNIDAZOLE IV 250mg/50 ml 250 MG/50 ML BAG IVPB SCH ×3 (05:08→21:23)
[2017-09-16] MEDS: levoFLOXacin 500 mg in D5W 500 MG/100 ML BAG IVPB SCH (05:08)
[2017-09-16] MEDS: Pantoprazole 20 mg EC Tab PO SCH ×2 (05:08→17:00)
--- NOTE | 2017-09-16 09:30 | PN ---
DATE: 09/15/2017 SUBJECTIVE: The patient is 81-year-old, seen and examined, lying in bed, seems to be comfortable. No nausea or vomiting. She states having liquid diet. She wants to eat some food. We spoke to Dr. Nolan. He wants her to be on clear liquid for another 24 hours. PHYSICAL EXAMINATION: VITAL SIGNS: She is afebrile. Pulse 76, respirations 18, blood pressure 130/80. LUNGS: Bilateral fair airflow. No rhonchi or crackle. HEART: S1 and S2 audible. ABDOMEN: Soft, obese, nontender. No rebound. No guarding. NEUROLOGIC: She is awake, alert, oriented, able to communicate, and ambulatory. ASSESSMENT: 1. Cholelithiasis. 2. Acute cholecystitis. 3. Hypertension. 4. Hyperlipidemia. PLAN: We will continue the patient on Levaquin and Flagyl. Surgical input noted and appreciated. I do not think they have a plan for surgical intervention at this point. They would rather let the patient go home and do elective cholecystectomy later on. Lillian Gan MD
[2017-09-16] MEDS: Enoxaparin 40 mg Syringe SC SCH (10:27)
[2017-09-16] MEDS: POLYETHYLENE GLYCOL 3350 17 GM/Dose PACKET PO SCH ×2 (10:27→17:17)
--- NOTE | 2017-09-16 14:14 | CP.PCM.PN ---
Subjective - Date & Time of Evaluation Date of Evaluation: 09/16/17 Time of Evaluation: 14:12 - Subjective Subjective: General surgery progress note for Dr. Fritz Patient seen and examined at bedside. Patient is doing well and states that she wants to try to eat. Patient denies any abdominal pain, nausea and vomiting. No further complaints at this time. Objective - Vital Signs/Intake and Output Vital Signs (last 24 hours): Temp Pulse Resp BP Pulse Ox 98 F 74 16 99/67 L 97 09/15/17 16:37 09/15/17 16:37 09/15/17 16:37 09/15/17 16:37 09/15/17 11:46 - Medications Medications: Current Medications Acetaminophen (Tylenol 325mg Tab) 650 mg PO Q4H PRN PRN Reason: Fever >100.5 F Enoxaparin Sodium (Lovenox) 40 mg SC DAILY [facility] PRN Reason: Protocol Last Admin: 09/16/17 10:27 Dose: 40 mg Metronidazole (Flagyl) 250 mg in 50 mls @ 100 mls/hr IVPB Q8 [facility] PRN Reason: Protocol Stop: 09/16/17 22:01 Last Admin: 09/16/17 05:08 Dose: 100 mls/hr Levofloxacin/Dextrose (Levaquin 500mg) 500 mg in 100 mls @ 100 mls/hr IVPB 0600 [facility] PRN Reason: Protocol Last Admin: 09/16/17 05:08 Dose: 100 mls/hr Lactated Ringer's (Lactated Ringer's) 1,000 mls @ 100 mls/hr IV .Q10H [facility] Last Admin: 09/16/17 11:27 Dose: 100 mls/hr Ondansetron HCl (Zofran Inj) 4 mg IVP Q4H PRN PRN Reason: Nausea/Vomiting Pantoprazole Sodium (Protonix Ec Tab) 20 mg PO 0600,1600 [facility] Last Admin: 09/16/17 05:08 Dose: 20 mg Polyethylene Glycol (Miralax) 17 gm PO BID [facility] Last Admin: 09/16/17 10:27 Dose: Not Given Simethicone (Mylicon Chew Tab) 80 mg PO [facility] PRN PRN Reason: GI distress - Labs Labs: 09/15/17 07:00 09/15/17 07:00 PT 11.9 SECONDS (9.4-12.5) 09/14/17 06:50 INR 1.03 (0.93-1.08) 09/14/17 06:50 APTT 25.3 Seconds (25.1-36.5) 09/14/17 06:50 - Constitutional Appears: Well - Head Exam Head Exam: ATRAUMATIC, NORMAL INSPECTION, NORMOCEPHALIC - Eye Exam Eye Exam: EOMI, Normal appearance, PERRL Pupil Exam: NORMAL ACCOMODATION, PERRL - ENT Exam ENT Exam: Mucous Membranes Moist, Normal Exam - Neck Exam Neck Exam: Full ROM, Normal Inspection. absent: Lymphadenopathy - Respiratory Exam Respiratory Exam: Clear to Ausculation Bilateral, NORMAL BREATHING PATTERN - Cardiovascular Exam Cardiovascular Exam: REGULAR RHYTHM, +S1, +S2. absent: Murmur - GI/Abdominal Exam GI & Abdominal Exam: Soft, Normal Bowel Sounds. absent: Tenderness - Rectal Exam Rectal Exam: NORMAL INSPECTION - Exam Exam: Circumcision, NORMAL INSPECTION External exam: NORMAL EXTERNAL EXAM Speculum exam: NORMAL SPECULUM EXAM Bimanual exam: NORMAL BIMANUAL EXAM - Extremities Exam Extremities Exam: Full ROM, Normal Capillary Refill, Normal Inspection. absent : Joint Swelling, Pedal Edema - Back Exam Back Exam: NORMAL INSPECTION - Neurological Exam Neurological Exam: Alert, Awake, CN II-XII Intact, Normal Gait, Oriented x3 - Psychiatric Exam Psychiatric exam: Normal Affect, Normal Mood - Skin Skin Exam: Dry, Intact, Normal Color, Warm Assessment and Plan - Assessment and Plan (Free Text) Assessment: Assessment and Plan 81F with pancreatitis d/t choledocholithiasis and ERCP with cholelithiasis Plan: -Heart Healthy Diet today -Continue DVT ppx, GI ppx -Medical management per primary -Encourage ambulation
--- NOTE | 2017-09-17 00:38 | PN ---
DATE: SUBJECTIVE: The patient is 81 years old, seen and examined, lying in bed, seems to be comfortable. Anxious to eat regular food. No abdominal pain. No nausea, vomiting or diarrhea. OBJECTIVE: VITAL SIGNS: She is afebrile. Pulse 69, respirations 18, blood pressure 155/73. LUNGS: Bilateral good airflow. No rhonchi or crackle. HEART: S1 and S2 audible. ABDOMEN: Soft, obese, nontender. No rebound. No guarding. NEUROLOGIC: The patient is awake and alert, able to communicate. ASSESSMENT: 1. Choledocholithiasis, status post stone extraction from common bile duct. 2. Acute cholecystitis, seems to be resolving. 3. Hypertension. 4. Hyperlipidemia. PLAN: The patient's diet has been advanced. We will follow up LFTs in a.m. She is scheduled to be discharged on Thursday. The patient will eventually need cholecystectomy. Lillian Gan MD
[2017-09-17] MEDS: Pantoprazole 20 mg EC Tab PO SCH ×2 (05:06→16:24)
[2017-09-17] MEDS: levoFLOXacin 500 mg in D5W 500 MG/100 ML BAG IVPB SCH (05:06)
[2017-09-17 07:28] LABS: BASO # 0.05 K/mm3 (0.0-2.0); BASO % 0.3 % (0.0-3.0); EOS # 0.2 (0.0-0.7); EOS % 0.9 % (1.5-5.0); GRAN # 9.3 (1.4-6.5); GRAN % 47.2 % (50.0-68.0); HEMOGLOBIN 12.4 g/dL (12.0-16.0); LYMPH # 9.3 (1.2-3.4); LYMPH % 47.1 % (22.0-35.0); MEAN CELL VOLUME 91.8 fl (80.0-105.0); MEAN CORPUSCULAR HEMOGLOBIN 29.9 pg (25.0-35.0); MEAN CORPUSCULAR HGB CONC 32.5 g/dl (31.0-37.0); MEAN PLATELET VOLUME 9.9 fl (7.0-11.0); MONO # 0.9 (0.1-0.6); MONO % 4.5 % (1.0-6.0); RBC 4.15 10^6/uL (3.5-6.1); RED CELL DISTRIBUTION WIDTH 14.3 % (11.5-14.5); WHITE BLOOD COUNT 19.7 10^3/ul (4.5-11.0)
[2017-09-17 07:48] LABS: ALB/GLOB RATIO 1.1 (1.1-1.8); ALBUMIN 3.7 g/dL (3.0-4.8); ALT/SGPT 62 U/L (7-56); AST/SGOT 64 U/L (14-36); BLOOD UREA NITROGEN 4 mg/dL (7-21); CALCIUM 8.8 mg/dL (8.4-10.5); GFR AFRICAN-AMERICAN > 60; GFR NON-AFRICAN AMERICAN > 60
[2017-09-17 08:48] LABS: AMYLASE 71 U/L (35-125); LIPASE 339 U/L (23-300)
[2017-09-17] MEDS: Enoxaparin 40 mg Syringe SC SCH (10:43)
[2017-09-17] MEDS: POLYETHYLENE GLYCOL 3350 17 GM/Dose PACKET PO SCH ×2 (10:44→17:32)
--- NOTE | 2017-09-17 12:51 | CP.PCM.PN ---
Subjective - Date & Time of Evaluation Date of Evaluation: 09/17/17 Time of Evaluation: 07:25 - Subjective Subjective: Patient seen and examined at bedside. No adverse events overnight. Tolerated HHD well with no abdominal pain nasuea or voimiting Objective - Vital Signs/Intake and Output Vital Signs (last 24 hours): Temp Pulse Resp BP Pulse Ox 98.7 F 69 18 155/73 H 97 09/16/17 16:00 09/16/17 16:00 09/16/17 16:00 09/16/17 16:00 09/16/17 16:00 - Medications Medications: Current Medications Acetaminophen (Tylenol 325mg Tab) 650 mg PO Q4H PRN PRN Reason: Fever >100.5 F Enoxaparin Sodium (Lovenox) 40 mg SC DAILY [facility] PRN Reason: Protocol Last Admin: 09/17/17 10:43 Dose: 40 mg Levofloxacin/Dextrose (Levaquin 500mg) 500 mg in 100 mls @ 100 mls/hr IVPB 0600 [facility] PRN Reason: Protocol Last Admin: 09/17/17 05:06 Dose: 100 mls/hr Ondansetron HCl (Zofran Inj) 4 mg IVP Q4H PRN PRN Reason: Nausea/Vomiting Pantoprazole Sodium (Protonix Ec Tab) 20 mg PO 0600,1600 [facility] Last Admin: 09/17/17 05:06 Dose: 20 mg Polyethylene Glycol (Miralax) 17 gm PO BID [facility] Last Admin: 09/17/17 10:44 Dose: Not Given Simethicone (Mylicon Chew Tab) 80 mg PO [facility] PRN PRN Reason: GI distress - Labs Labs: 09/17/17 06:30 09/17/17 06:30 PT 11.9 SECONDS (9.4-12.5) 09/14/17 06:50 INR 1.03 (0.93-1.08) 09/14/17 06:50 APTT 25.3 Seconds (25.1-36.5) 09/14/17 06:50 - Constitutional Appears: Non-toxic, No Acute Distress - Head Exam Head Exam: ATRAUMATIC, NORMOCEPHALIC - Eye Exam Eye Exam: Normal appearance. absent: Conjunctival injection, Scleral icterus - ENT Exam ENT Exam: Mucous Membranes Moist, Normal Oropharynx - Respiratory Exam Respiratory Exam: NORMAL BREATHING PATTERN. absent: Accessory Muscle Use, Respiratory Distress - Cardiovascular Exam Cardiovascular Exam: RRR - GI/Abdominal Exam GI & Abdominal Exam: Soft. absent: Distended, Tenderness - Extremities Exam Extremities Exam: absent: Calf Tenderness, Pedal Edema, Tenderness - Neurological Exam Neurological Exam: Alert, Awake, Oriented x3 - Psychiatric Exam Psychiatric exam: Normal Affect, Normal Mood - Skin Skin Exam: Dry, Normal Color, Warm Assessment and Plan - Assessment and Plan (Free Text) Assessment: 81F with pancreatitis d/t choledocholithiasis and ERCP Plan: Continue HHD as tolerated WBC increased to 19 today. Suggest monitoring one more day of diet tolerance and repeat CBC in the AM Continue DVT ppx, GI ppx Medical management per primary Encourage ambulation Discussed with Dr. Billy Mccord
--- NOTE | 2017-09-17 19:39 | PN ---
DATE: SUBJECTIVE: The patient is 81 years old, seen and examined, lying in bed. Seems to be comfortable. No nausea or vomiting. No diarrhea. Her diet was advanced and she is tolerating. PHYSICAL EXAMINATION: VITAL SIGNS: She is afebrile, pulse 95, respirations 20, blood pressure 119/71. LUNGS: Bilateral fair airflow. No rhonchi or crackle. HEART: S1 and S2 audible. ABDOMEN: Soft, obese, nontender. No rebound. No guarding. NEUROLOGIC: The patient is awake, alert, oriented, able to communicate. LABORATORY EXAM: WBC is 19.7, hemoglobin 12.4, hematocrit 38, platelet 396. Chemistry: Sodium 141, potassium 4.3, chloride 105, CO2 of 26, BUN 4, creatinine 0.4, blood sugar 106. Her AST 64, ALT 62 and alk phos is 192. Her lipase is 638. ASSESSMENT AND PLAN: 1. Status post common bile duct stone extraction. 2. Acute cholecystitis, resolving now. 3. Abnormal liver function tests. 4. Pancreatitis, resolving. 5. Hypertension. 6. Hyperlipidemia. Discussed with Dr. Cervantes. He recommended to continue on antibiotic and monitor her blood work in the a.m. and we will make further recommendations. Lillian Gan MD
[2017-09-18] MEDS: Pantoprazole 20 mg EC Tab PO SCH ×2 (05:44→16:31)
[2017-09-18] MEDS: levoFLOXacin 500 mg in D5W 500 MG/100 ML BAG IVPB SCH (05:44)
[2017-09-18 07:31] LABS: BASO # 0.04 K/mm3 (0.0-2.0); BASO % 0.2 % (0.0-3.0); EOS # 0.1 (0.0-0.7); EOS % 0.7 % (1.5-5.0); GRAN # 7.77 (1.4-6.5); GRAN % 42.9 % (50.0-68.0); HEMOGLOBIN 11.6 g/dL (12.0-16.0); LYMPH # 9.4 (1.2-3.4); LYMPH % 51.6 % (22.0-35.0); MEAN CELL VOLUME 91.1 fl (80.0-105.0); MEAN CORPUSCULAR HEMOGLOBIN 29.5 pg (25.0-35.0); MEAN CORPUSCULAR HGB CONC 32.4 g/dl (31.0-37.0); MEAN PLATELET VOLUME 9.7 fl (7.0-11.0); MONO # 0.8 (0.1-0.6); MONO % 4.6 % (1.0-6.0); RBC 3.93 10^6/uL (3.5-6.1); RED CELL DISTRIBUTION WIDTH 14.1 % (11.5-14.5); WHITE BLOOD COUNT 18.2 10^3/ul (4.5-11.0)
[2017-09-18 07:55] LABS: ALBUMIN 3.2 g/dL (3.0-4.8); ALT/SGPT 61 U/L (7-56); AMYLASE 86 U/L (35-125); AST/SGOT 68 U/L (14-36); BLOOD UREA NITROGEN 8 mg/dL (7-21); CALCIUM 8.9 mg/dL (8.4-10.5); GFR AFRICAN-AMERICAN > 60; GFR NON-AFRICAN AMERICAN > 60; LIPASE 478 U/L (23-300)
--- NOTE | 2017-09-18 08:31 | CP.PCM.PN ---
Subjective - Date & Time of Evaluation Date of Evaluation: 09/18/17 Time of Evaluation: 06:50 - Subjective Subjective: Patient seen and examined at bedside thsi AM. Denies nausea, vomiting, abdominal pain, is tolerating her heart healthy diet Objective - Vital Signs/Intake and Output Vital Signs (last 24 hours): Temp Pulse Resp BP Pulse Ox 98.2 F 77 18 123/77 96 09/18/17 03:00 09/18/17 03:00 09/18/17 03:00 09/18/17 03:00 09/18/17 03:00 - Medications Medications: Current Medications Acetaminophen (Tylenol 325mg Tab) 650 mg PO Q4H PRN PRN Reason: Fever >100.5 F Enoxaparin Sodium (Lovenox) 40 mg SC DAILY [facility] PRN Reason: Protocol Last Admin: 09/17/17 10:43 Dose: 40 mg Levofloxacin/Dextrose (Levaquin 500mg) 500 mg in 100 mls @ 100 mls/hr IVPB 0600 [facility] PRN Reason: Protocol Last Admin: 09/18/17 05:44 Dose: 100 mls/hr Ondansetron HCl (Zofran Inj) 4 mg IVP Q4H PRN PRN Reason: Nausea/Vomiting Pantoprazole Sodium (Protonix Ec Tab) 20 mg PO 0600,1600 [facility] Last Admin: 09/18/17 05:44 Dose: 20 mg Polyethylene Glycol (Miralax) 17 gm PO BID [facility] Last Admin: 09/17/17 17:32 Dose: Not Given Simethicone (Mylicon Chew Tab) [address] [facility] PRN PRN Reason: GI distress - Labs Labs: 09/18/17 07:00 09/18/17 07:00 PT 11.9 SECONDS (9.4-12.5) 09/14/17 06:50 INR 1.03 (0.93-1.08) 09/14/17 06:50 APTT 25.3 Seconds (25.1-36.5) 09/14/17 06:50 - Constitutional Appears: Well, Non-toxic, No Acute Distress - Head Exam Head Exam: ATRAUMATIC, NORMOCEPHALIC - Eye Exam Eye Exam: Normal appearance. absent: Conjunctival injection, Scleral icterus - ENT Exam ENT Exam: Mucous Membranes Moist, Normal Oropharynx - Respiratory Exam Respiratory Exam: NORMAL BREATHING PATTERN. absent: Accessory Muscle Use, Respiratory Distress - Cardiovascular Exam Cardiovascular Exam: RRR - GI/Abdominal Exam GI & Abdominal Exam: Soft. absent: Distended, Tenderness - Neurological Exam Neurological Exam: Alert, Awake, Oriented x3 - Psychiatric Exam Psychiatric exam: Normal Affect, Normal Mood - Skin Skin Exam: Dry, Intact, Normal Color, Warm Assessment and Plan - Assessment and Plan (Free Text) Assessment: 81F with resolving acute pancreatitis s/p ERCP for choledocholithiasis and cholelithiasis Plan: -Continue HHD -Will discuss surgical planning for cholecystectomy with patient--can do an interval cholecystectomy as outpatient or may consider as inpatient this admission -PRN pain and nausea medication -management per primary Discussed with tigre Tomas PGY2
[2017-09-18] MEDS: Enoxaparin 40 mg Syringe SC SCH (09:39)
[2017-09-18] MEDS: POLYETHYLENE GLYCOL 3350 17 GM/Dose PACKET PO SCH ×2 (09:39→17:16)
--- NOTE | 2017-09-18 16:44 | CP.PCM.PCO ---
Physician Communication Note - Physician Communication Note Physician Communication Note: JASE D/C am:Rx low fat [id number] f/u-OR in 3-4 weeks
--- NOTE | 2017-09-18 22:50 | PN ---
DATE: SUBJECTIVE: The patient is 81 years old, seen and examined, doing well. Eating and tolerating. No abdominal pain. No nausea or vomiting. No diarrhea. PHYSICAL EXAMINATION: VITAL SIGNS: She is afebrile, pulse 84, respirations 18, blood pressure 140/78. LUNGS: Bilateral good airflow. No rhonchi or crackle. HEART: S1 and S2 audible. ABDOMEN: Soft, nontender. No rebound. No guarding. NEUROLOGIC: The patient is awake and alert. Able to communicate. Ambulatory. LABORATORY EXAM: WBC is 18.2, hemoglobin 11.6, hematocrit 35.8, platelet of 400. Chemistry: Sodium 141, potassium 3.8, chloride 105, CO2 of 26, BUN 8, creatinine 0.8, blood sugar of 130. AST 68, ALT 61 and alk phos is 181. Lipase is 478. ASSESSMENT: 1. Status post endoscopic retrograde cholangiopancreatography. 2. Cholecystitis, improving. 3. Hypertension. 4. Gastritis. PLAN: Currently, patient is on Levaquin. Surgical input noted. Plan for discharge in a.m. and elective cholecystectomy within a month as outpatient. Lililan Gan MD
[2017-09-19] MEDS: levoFLOXacin 500 mg in D5W 500 MG/100 ML BAG IVPB SCH (05:44)
[2017-09-19] MEDS: Pantoprazole 20 mg EC Tab PO SCH (05:44)
[2017-09-19 08:25] VITALS: BP 157/86; PULSE 72; RESP 16; TEMP 98.1; O2SAT 95
[2017-09-19] MEDS: Enoxaparin 40 mg Syringe SC SCH (09:32)
[2017-09-19] MEDS: POLYETHYLENE GLYCOL 3350 17 GM/Dose PACKET PO SCH (09:32)
--- NOTE | 2017-09-20 13:42 | DS ---
HISTORY OF PRESENT ILLNESS: The patient is 81 years old, who came to emergency room on 08/07/2017 with abdominal pain. She was found to have cholelithiasis. She also has acute cholecystitis. Her LFTs were getting abnormal. Dr. Bradford was consulted, who did ERCP and had stone removed from common bile duct. Postprocedure, the patient developed pancreatitis. She has been on IV antibiotics, so she was transferred to TCU on 09/12/2017 to complete her course of antibiotic and close observation. The patient did well. Her diet was advanced and being discharged today. PHYSICAL EXAMINATION: GENERAL: On examination, she is awake, alert, oriented, communicative. VITAL SIGNS: She is afebrile, pulse 72, respirations 16, blood pressure 157/86. LUNGS: Bilateral fair airflow. No rhonchi or crackle. HEART: S1, S2 audible. ABDOMEN: Soft, obese, nontender. No rebound. No guarding. NEUROLOGICAL: The patient is awake, alert, oriented, communicative, ambulatory. LABORATORY EXAM: Upon discharge, WBC 18.2, hemoglobin 11.6, hematocrit 35.8, platelet of 400. Chemistry: Sodium 141, potassium 3.8, chloride 105, CO2 of 26, BUN 8, creatinine 0.5, blood sugar of 148. Her AST 68, ALT 61, alk phos is 181. ASSESSMENT: 1. Cholelithiasis, status post endoscopic retrograde cholangiopancreatography and common bile duct stone removal. 2. Cholecystitis, improving. 3. Hypertension. 4. Hyperlipidemia. PLAN: The patient is being discharged home on Levaquin 250 daily for 5 more days. She is advised to have low-fat diet. She is also advised to continue her usual medication as prior to admission that is lisinopril, Norvasc and simvastatin was on hold until she has cholecystectomy done because her LFTs are still abnormal. She will follow up with Dr. Cervantes as outpatient to have elective cholecystectomy done. She was told if she develop abdominal pain, nausea or vomiting, she should come to emergency room right away. Lillian Gan MD [facility] # [id number]
--- NOTE | 2017-09-21 08:55 | PN ---
DATE: 09/18/2017 SUBJECTIVE: The patient is 74-year-old, seen and examined, remains unresponsive, on vent, has trach, PEG placed, on PEG tube feeding. Currently getting CPAP trial and seems to be short of breath. She will be switched back to pressure support and CMV mode. OBJECTIVE: VITAL SIGNS: She is afebrile, pulse 109, respirations 27, blood pressure 119/76. LUNGS: Bilateral good airflow. No rhonchi or crackles. HEART: S1, S2 audible. Tachycardic. ABDOMEN: Soft. PEG in place. NEUROLOGIC: She is unresponsive. LABORATORY EXAM: WBC is 23.3, hemoglobin 9, hematocrit 27.8, platelet of 390. Chemistry: Sodium 155, potassium 3.6, chloride 120, CO2 of 24, BUN 27, creatinine 0.6, blood sugar of 157. ASSESSMENT: 1. Respiratory failure. 2. Intracranial bleed. 3. Status post frontal ventriculostomy. That shunt was removed since it did not make any difference in patient's mental status and it could have been the source of infection. 4. Chronic atrial fibrillation. 5. Chronic obstructive pulmonary disease. PLAN: She was given a weaning trial. community services officer are in the process of making arrangement to [facility]. As soon as arrangement is made, patient will be transferred. Lillian Gan MD
== END 2017-09-19 12:45 | disposition home or self-care (01) | DRG 444 ==
LOC: TRCU 20:15
PROVIDERS: ADMIT Internal Medicine; ATTEND Internal Medicine
PROC: F07Z9ZZ Gait Training/Functional Ambulation Treatment (ICD-10-PCS; principal; 2017-09-13)
PROC: F07Z5ZZ Bed Mobility Treatment (ICD-10-PCS; 2017-09-14)
PROC: F07Z8ZZ Transfer Training Treatment (ICD-10-PCS; 2017-09-14)
PROC: F07L6YZ Therapeutic Exercise Treatment of Musculoskeletal System - Lower Back / Lower Extremity using Other Equipment (ICD-10-PCS; 2017-09-14)
PROC: F08Z2ZZ Grooming/Personal Hygiene Treatment (ICD-10-PCS; 2017-09-15)
DX: K80.62 Calculus of gallbladder and bile duct with acute cholecystitis without obstruction (principal); K85.90 Acute pancreatitis without necrosis or infection, unspecified; E66.01 Morbid (severe) obesity due to excess calories; E78.5 Hyperlipidemia, unspecified; I10 Essential (primary) hypertension; K29.70 Gastritis, unspecified, without bleeding; M81.0 Age-related osteoporosis without current pathological fracture; K59.00 Constipation, unspecified; Z68.32 Body mass index [BMI] 32.0-32.9, adult

== ENCOUNTER 2017-10-15 06:42 | Day surgery (SDC) | payer MEDICARE ==
[2017-10-12 08:58] VITALS: BMI 31.4
[2017-10-15] MEDS ORDERED: Lidocaine 2% Inj (20ml) ONE (07:16)
[2017-10-15] MEDS ORDERED: Verapamil 2 ML ONE (07:17)
[2017-10-15] MEDS ORDERED: Midazolam 2 MG/2 ML VIAL ONE ×2 (07:17→09:55)
[2017-10-15] MEDS ORDERED: Nitroglycerin 50mg in D5W 0 MG/0 ML BOTTLE IV ONE (07:17)
[2017-10-15] MEDS ORDERED: HEPARIN SODIUM/NS 2,000 ML IV ONE (07:18)
[2017-10-15] MEDS ORDERED: Iodixanol 320 MG/ML 200 ML BOTTLE IV ONE (07:18)
[2017-10-15 07:43] LABS: BASO # 0.03 K/mm3 (0.0-2.0); BASO % 0.2 % (0.0-3.0); EOS # 0.3 (0.0-0.7); EOS % 1.8 % (1.5-5.0); GRAN # 5.39 (1.4-6.5); GRAN % 31.8 % (50.0-68.0); HEMOGLOBIN 13.2 g/dL (12.0-16.0); LYMPH # 10.5 (1.2-3.4); LYMPH % 62.2 % (22.0-35.0); MEAN CELL VOLUME 90.2 fl (80.0-105.0); MEAN CORPUSCULAR HEMOGLOBIN 30.2 pg (25.0-35.0); MEAN CORPUSCULAR HGB CONC 33.5 g/dl (31.0-37.0); MEAN PLATELET VOLUME 9.9 fl (7.0-11.0); MONO # 0.7 (0.1-0.6); RBC 4.37 10^6/uL (3.5-6.1); RED CELL DISTRIBUTION WIDTH 12.9 % (11.5-14.5); WHITE BLOOD COUNT 16.9 10^3/ul (4.5-11.0)
[2017-10-15 07:52] LABS: INR 1.02 (0.93-1.08); PARTIAL THROMBOPLASTIN TIME 27.8 Seconds (25.1-36.5); PROTHROMBIN TIME 11.7 SECONDS (9.4-12.5)
[2017-10-15 08:00] LABS: BLOOD UREA NITROGEN 13 mg/dL (7-21); CALCIUM 10.3 mg/dL (8.4-10.5); GFR AFRICAN-AMERICAN > 60; GFR NON-AFRICAN AMERICAN > 60; HDL CHOLESTEROL 64 mg/dL (29-60)
[2017-10-15 08:04] LABS: LDL CHOLESTEROL 130 mg/dL (0-129)
[2017-10-15] MEDS ORDERED: Iohexol 350mgl/ml 50 ML ONE (08:26)
--- NOTE | 2017-10-15 08:34 | HP ---
REASON FOR ADMISSION: Left heart cath, possible angioplasty, abnormal stress test, ,preop evaluation for gallbladder surgery. BRIEF CLINICAL HISTORY: This is an 81-year-old female with past medical history significant for hypertension, hyperlipidemia, preop evaluation for gallbladder surgery, found to be abnormal stress test. Patient is scheduled for elective cardiac cath, possible angioplasty. PAST MEDICAL HISTORY: Significant for hyperlipidemia and hypertension. SOCIAL HISTORY: Denies any history of alcohol abuse. RECENT CARDIAC WORKUP FOLLOWS: Patient has a stress test, Lexiscan dated 10/05/2017 that showed abnormal myocardial perfusion study, partially reversible small anterior and apical defect, suspicious of ischemia, ejection fraction 75%. The patient had echocardiography done that showed ejection fraction 60%-65%, trace pericardial effusion, no vegetation or thrombus noted. Mild aortic stenosis, mild mitral regurgitation, mild tricuspid regurgitation. CURRENT MEDICATION: The patient is taking polyethylene glycol, MiraLax, vitamin D, Evista, amlodipine 5 mg daily, multivitamin, loratadine 10 mg daily, lisinopril 40 mg daily, aspirin 81 mg daily. REVIEW OF SYSTEMS: As per HPI. PHYSICAL EXAMINATION: GENERAL: Height of the patient 4 feet 9 inches, weight is 145 pounds, body mass index 31.4 kg/m2. VITAL SIGNS: Blood pressure 130/80, heart rate 64. HEENT: PERRLA, extraocular muscles intact. NECK: Supple. No carotid bruit or thyromegaly. CHEST: Clear to auscultation. HEART: S1, S2 regular. ABDOMEN: Soft. EXTREMITIES: Clubbing and cyanosis negative. LABORATORY DATA: Blood workup pending. IMPRESSION: Abnormal stress test, preoperative evaluation for gallbladder surgery, hypertension, hyperlipidemia. RECOMMENDATION: We will load aspirin and Plavix since patient is put bare-metal stent, surgery. Further recommendations after cardiac catheterization. Risks, benefits, and alternatives were explained to the patient. Patient agreed. We will proceed for cardiac catheterization. Further recommendation after the cardiac catheterization. Thank you Dr. Johnson/Dr. Tobin for providing us the opportunity in taking care of the patient, Lola Hoffman. Servando Mcelroy MD
[2017-10-15 09:35] VITALS: O2SAT 98
[2017-10-15] MEDS ORDERED: Eptifibatide 20 mg/10mL Inj IVP ONE (09:49)
[2017-10-15] MEDS ORDERED: HEPARIN SODIUM/NS 1,000 ML IV ONE (10:02)
[2017-10-15] MEDS ORDERED: Sodium Chloride 0.9% 1,000 ML IV SCH (10:45)
[2017-10-15] MEDS ORDERED: Metoprolol Succinate 25 mg XL Tab PO SCH (10:45)
--- NOTE | 2017-10-15 11:30 | CPOSTOP ---
DATE: 10/15/2017 CARDIOVASCULAR POST PROCEDURE NOTE PHYSICIAN: Servando Mcelroy MD. OBSTETRICIAN/GYNECOLOGIST/SALES LEADER: Wanda, plumbing technician. TYPE OF ANESTHESIA: Moderate conscious sedation. Total dose given 2 mg of Versed and 100 of fentanyl periodically. Started 1 mg of Versed and 50 fentanyl. PRE-PROCEDURE DIAGNOSES: Coronary artery disease, preoperative evaluation, abnormal stress test. PROCEDURE PERFORMED: 1. Left heart catheterization. 2. Stenting of proximal circumflex. 3. Stenting of proximal left anterior descending with drug eluting stent. FINDINGS: 1. LAD proximal 90% stenosis, tubular. 2. Circ proximal to mid 90% stenosis. 3. RCA 30-40% proximal stenosis. 4. Preserved LV function. FINAL DIAGNOSIS: Two-vessel disease. PROCEDURE PERFORMED: 1. Successful percutaneous transluminal coronary angioplasty with drug-eluting stent on the circumflex. 2. Successful percutaneous transluminal coronary angioplasty with drug-eluting stent of LAD and left heart catheterization. Postprocedure, the patient remained stable. VASCULAR ACCESS SITE: Right femoral groin. CLOSING DEVICE THAT APPLIED: Perclose. TOTAL RADIATION DOSE: 00783.4 milligray unit. TOTAL FLUORO TIME: 13 minutes. RECOMMENDATION: Continue aspirin 81 mg daily, Plavix 75 mg daily, atorvastatin 40 mg daily. In addition to the baseline medication, the patient takes amlodipine 5 mg daily and lisinopril 40 mg daily. We will also add metoprolol succinate 25 mg daily. The patient will take mandatory aspirin and Plavix for 3 months and then will stop and the patient can go for cholecystectomy. We will discuss with Dr. Cervantes. Thank you, Dr. Cervantes for providing us the opportunity in taking care of the patient, Lola Hoffman. Servando Mcelroy MD cc: MD Eleazar Granger MD Rosa Neno, DO
[2017-10-15 15:30] LABS: BASO # 0.03 K/mm3 (0.0-2.0); BASO % 0.2 % (0.0-3.0); EOS # 0.2 (0.0-0.7); GRAN # 6.5 (1.4-6.5); GRAN % 41.1 % (50.0-68.0); HEMOGLOBIN 11.8 g/dL (12.0-16.0); LYMPH # 8.4 (1.2-3.4); LYMPH % 53.1 % (22.0-35.0); MEAN CORPUSCULAR HEMOGLOBIN 29.6 pg (25.0-35.0); MEAN CORPUSCULAR HGB CONC 32.9 g/dl (31.0-37.0); MEAN PLATELET VOLUME 9.7 fl (7.0-11.0); MONO # 0.7 (0.1-0.6); MONO % 4.6 % (1.0-6.0); RBC 3.99 10^6/uL (3.5-6.1); RED CELL DISTRIBUTION WIDTH 12.9 % (11.5-14.5); WHITE BLOOD COUNT 15.8 10^3/ul (4.5-11.0)
[2017-10-15 15:37] LABS: BLOOD UREA NITROGEN 11 mg/dL (7-21); GFR AFRICAN-AMERICAN > 60; GFR NON-AFRICAN AMERICAN > 60
[2017-10-15 17:52] VITALS: PULSE 79
--- NOTE | 2017-10-15 18:13 | CARD ---
APPROVED REPORT Procedure(s) performed: Left Heart Catheterization PTCA with Stenting of Proxima Cx with JANELL PTCA with Stenting of Proximal LAD with JANELL HISTORY The patient is a 81 year-old female with a history of : previous MT (> 7 days), most recent EF: 75%. (EF Method: RADIONUCLIDE), peripheral vascular disease, hypertension , dyslipidemia , Pre-op abnormal stress test. INDICATION The indication(s) include : positive stress test. CASE TECHNIQUE The patient was brought electively to the Cardiac Catheterization Laboratory in a fasting state and was prepped and draped in a sterile manner. The right femoral groin was infiltrated with 2% Lidocaine subcutaneous anesthesia. A 6 Fr x 11 cm Lamar sheath was inserted into the right femoral artery without difficulty. Coronary angiography was performed using coronary diagnostic catheters. The left coronary system was accessed and visualized with a Diagnostic ,5 Fr JL 3.5 catheter. The right coronary system was accessed and visualized with a Diagnostic ,5 Fr 3DRC catheter. The left ventricle was accessed and visualized with a 5 Fr Pigtail 145 (Angled) catheter. Left ventricular/Aortic Valve gradient assessed on pullback. Left ventriculogram was performed in FERNANDEZ projection. The patient tolerated the procedure well and there were no complications associated with the procedure. Vessel Analysis The patient's coronary anatomy is right dominant. The left main coronary artery is a large size vessel with diffuse calcification noted throughout this vessel and without significant stenosis. There is a 30-40% stenosis in the distal segment. The left main bifurcates to the left anterior descending and circumflex. The left anterior descending artery is a medium size vessel with diffuse calcification noted throughout this vessel and with significant stenosis. There is a 90% stenosis in the proximal segment. The first diagonal branch is a medium size vessel with diffuse calcification noted throughout this vessel and without significant stenosis. The circumflex artery is a large size vessel with diffuse calcification noted throughout this vessel and with significant stenosis. There is a 90% stenosis in the proximal segment. The first obtuse marginal branch is a small size vessel with diffuse calcification noted throughout this vessel and without significant stenosis. The right coronary artery is a medium size vessel with diffuse calcification noted throughout this vessel and without significant stenosis. There is a 30% stenosis in the proximal segment. The right posterior descending artery is a medium size vessel with diffuse calcification noted throughout this vessel and without significant stenosis. Left Ventricle The left ventricle is normal in size with ormal contractility. There was no cardiomyopathy. The left ventricular ejection fraction is estimated to be 60-65%. The left ventricular end diastolic pressure is 15-18 mmHg. There was no gradient across the aortic valve upon pullback. PCI Technique Lesion Anticoagulation was achieved with Heparin. Percutaneous coronary intervention was performed on the proximal circumflex artery segment. The lesion stenosis prior to intervention was 80-90% with GAUTAM 2 flow. A 6 Fr JL 3.5 Guide Catheter was used to engage the ostium. A Luge 182 Interventional Guidewire was used to cross the lesion. BALLOON DILATION A Balloon catheter 2.5 x 8 mm Trek RX was inserted and inflated up to 8.00atm for 10seconds. STENT DEPLOYMENT A drug-eluting stent 3.0 x 12 mm Resolute JANELL was inserted and inflated up to 11.00atm for 10seconds. Final angiography reveals 0 % stenosis with GAUTAM 3 flow. PCI Technique Lesion 2 Percutaneous Coronary Intervention was performed on the proximal left anterior descending artery segment. The lesion stenosis prior to intervention was 80-90% with GAUTAM 2 flow. A 6 Fr JL 3.5 Guide Catheter was used to engage the ostium. A 0.038 x 150 cm J Tip Interventional Guidewire was used to cross the lesion. BALLOON DILATION A Balloon catheter 2.5 x 8 mm Trek RX was inserted and inflated up to 9.00atm for 15seconds. STENT DEPLOYMENT A drug-eluting stent 3.0 x 12 mm Resolute JANELL was inserted and inflated up to 10.00atm for 10seconds. Final angiography reveals 0 % stenosis with GAUTAM 3 flow. Conclusion Two Vessel CAD involving Proximal LAD and proximal Cx. preserved lvFx. EF-60-65%, EDP-15-18 mmof Hg. Successful pTCA with JANELL of LAD and CX done Recommendations Aggressive Medical TherapyCardiac Risk Reduction Program Continue ASA and plavix for mandatory for 3 months, Then hold Plavix and pt can have gall bladder surgery. CC; Drs. Johnson/ Steven Cervantes / Crista.
[2017-10-15 18:21] VITALS: BP 130/51; RESP 18; TEMP 98.1
--- NOTE | 2017-10-16 10:08 | CARD ---
APPROVED REPORT EKG Measurement Heart [id number] <Conclusion> Normal sinus rhythm LAD Inferior infarct, age undetermined PRWP Mild NSSTW changes No change except the rate is slower
--- NOTE | 2017-10-16 10:29 | CARD ---
APPROVED REPORT EKG Measurement Heart [id number] <Conclusion> Normal sinus rhythm Left axis deviation Inferior infarct, age undetermined PRWP NSSTW changes No change
== END 2017-10-15 20:32 | disposition home or self-care (01) ==
LOC: CATH 06:42 → 2RNO 11:43 → CATH 20:32
PROVIDERS: ATTEND Internal Medicine Cardiovascular Disease
DX: I25.10 Atherosclerotic heart disease of native coronary artery without angina pectoris (principal); E78.5 Hyperlipidemia, unspecified; I10 Essential (primary) hypertension; R94.39 Abnormal result of other cardiovascular function study; I25.2 Old myocardial infarction; I73.9 Peripheral vascular disease, unspecified; Z01.818 Encounter for other preprocedural examination; Z79.82 Long term (current) use of aspirin; Z68.31 Body mass index [BMI] 31.0-31.9, adult
CPT/HCPCS: 36415; 80048; 80061; 83735; 84100; 85025; 85175; 85610; 85730; 86850; 86900; 93005; 93458; 99152; 99153; C1725; C1760; C1769 ×3; C1874; C1887 ×2; C2629; C9600; C9601; J1327; J1644 ×2; J2250; J3010; J7030; J7040; Q9967

== ENCOUNTER 2018-08-17 22:56 | Inpatient (IN) | payer MEDICARE ==
--- NOTE | 2018-08-17 23:11 | ED PDOC ---
Arrival/HPI - General Chief Complaint: Abdominal Pain Time Seen by Provider: 08/17/18 22:58 Historian: Patient - History of Present Illness Narrative History of Present Illness (Text): 08/17/18 23:11 Lola Hoffman is an 81 year old female, whose past medical history includes hypertension, CAD with cardiac stents, cholelithiasis, and hysterectomy, who presents to the Emergency department complaining of abdominal pain. Patient stat es she has been experiencing epigastric abdominal pain radiating to her back today with associated nausea and 1 episode of vomiting. Patient states she has experiencing similar pain in the past and was admitted to the hospital for cholelithiasis. Patient denies any fever, chills, chest pain, shortness of breath, diarrhea, urinary symptoms, neck pain, headache, dizziness, or any other complaints. Symptom Onset: Gradual Symptom Course: Unchanged Activities at Onset: Light Context: Home Past Medical History - Provider Review Nursing Documentation Reviewed: Yes - Infectious Disease Hx of Infectious Diseases: None - Cardiac Hx Cardiac Disorders: Yes Hx Pacemaker: No Other/Comment: Cardiac stent x 2 - Pulmonary Hx Respiratory Disorders: No - Neurological Hx Neurological Disorder: No - HEENT Hx HEENT Disorder: No - Renal Hx Renal Disorder: No - Endocrine/Metabolic Hx Endocrine Disorders: No - Hematological/Oncological Hx Blood Transfusions: (PT UNSURE) - Integumentary Hx Dermatological Disorder: No - Musculoskeletal/Rheumatological Hx Musculoskeletal Disorders: Yes - Gastrointestinal Hx Gastrointestinal Disorders: Yes (constipation last bm 09/02/17/feels bloated) - Genitourinary/Gynecological Hx Reproductive Disorders: Yes (hyst age 48/ breast bx) - Psychiatric Hx Emotional Abuse: No Hx Physical Abuse: No Hx Substance Use: No - Surgical History Hx Hysterectomy: Yes Other/Comment: cyst from ovary - Anesthesia Hx Anesthesia Reactions: No Hx Malignant Hyperthermia: No - Suicidal Assessment Feels Threatened In Home Enviroment: No Family/Social History - Physician Review Nursing Documentation Reviewed: Yes Family/Social History: Unknown Family HX Smoking Status: Never Smoked Hx Alcohol Use: No Hx Substance Use: No Allergies/Home Meds Allergies/Adverse Reactions: Allergies alendronate sodium [From Fosamax] Allergy (Verified 08/17/18 23:02) VOMITING Home Medications: Home Meds Medication Instructions Recorded Confirmed Aspirin [Adult Low Dose Aspirin EC] 81 mg PO DAILY 10/05/17 08/17/18 Lisinopril [Zestril] 40 mg PO DAILY 10/05/17 08/17/18 Loratadine [Claritin] 10 mg PO DAILY 10/05/17 08/17/18 Multivit-Min/Iron/Folic/Lutein 1 each PO DAILY 10/05/17 08/17/18 [Centrum Silver Women Tablet] amLODIPine [Norvasc] 5 mg PO DAILY 10/05/17 08/17/18 Calcium Carbonate/Vitamin D3 1 tab PO BID 10/12/17 08/17/18 [Calcium 600 + Vit D Tablet] Cholecalciferol [Vitamin D 1000 IU] 1,000 iu PO DAILY 10/12/17 08/17/18 Raloxifene [Evista] 60 mg PO DAILY 10/12/17 08/17/18 Atorvastatin [Lipitor] 20 mg PO DAILY 08/17/18 08/17/18 Clopidogrel [Plavix] 75 mg PO DAILY 08/17/18 08/17/18 Metoprolol Succinate [Kapspargo 25 mg PO DAILY 08/17/18 08/17/18 Sprinkle] Review of Systems - Physician Review All systems were reviewed & negative as marked: Yes - Review of Systems Constitutional: Normal. absent: Fevers Eyes: Normal ENT: Normal Respiratory: Normal. absent: SOB, Cough Cardiovascular: Normal. absent: Chest Pain Gastrointestinal: Abdominal Pain, Nausea, Vomiting. absent: Diarrhea Genitourinary Female: Normal. absent: Dysuria, Frequency, Hematuria, Urine Output Changes Musculoskeletal: Normal. absent: Back Pain, Neck Pain Skin: Normal. absent: Rash Neurological: Normal. absent: Headache, Dizziness Endocrine: Normal Hemo/Lymphatic: Normal Psychiatric: Normal Physical Exam Vital Signs Reviewed: Yes Temperature: Afebrile Blood Pressure: Normal Pulse: Regular Respiratory Rate: Normal Appearance: Positive for: Well-Appearing, Non-Toxic, Comfortable Pain Distress: None Mental Status: Positive for: Alert and Oriented X 3 - Systems Exam Head: Present: Atraumatic, Normocephalic Pupils: Present: PERRL Extroacular Muscles: Present: EOMI Conjunctiva: Present: Normal Mouth: Present: Moist Mucous Membranes Neck: Present: Normal Range of Motion Respiratory/Chest: Present: Clear to Auscultation, Good Air Exchange. No: Respiratory Distress, Accessory Muscle Use Cardiovascular: Present: Regular Rate and Rhythm, Normal S1, S2. No: Murmurs Abdomen: No: Tenderness, Distention, Peritoneal Signs Back: Present: Normal Inspection Upper Extremity: Present: Normal Inspection. No: Cyanosis, Edema Lower Extremity: Present: Normal Inspection. No: Edema Neurological: Present: GCS=15, CN II-XII Intact, Speech Normal Skin: Present: Warm, Dry, Normal Color. No: Rashes Psychiatric: Present: Alert, Oriented x 3, Normal Insight, Normal Concentration Medical Decision Making ED Course and Treatment: 08/17/18 23:11 Impression: 82 year old female complaining of epigastric pain, nausea, and vomiting. Plan: -- EKG -- Chest X-ray -- Labs, cardiac enzymes, lipase, lactic acid, blood cultures -- Urinalysis -- IV fluids -- Zofran -- Protonix -- Reassess and disposition Prior Visits: Notes and results from previous visits were reviewed. Progress Notes: 08/17/18 23:12 Reviewed EKG, NSR at 80 bpm. Inferior infarct. Non-specific ST/T wave changes. 08/17/18 23:49 Chest X-ray reviewed, shows no acute processes. 08/18/18 01:15 CT Abdomen and Pelvis: Chest: The visualized lung bases are clear. There is a moderate sized hiatal hernia. Abdomen: The liver, spleen, pancreas, kidneys, and adrenal glands are unremark able. Multiple simple bilateral renal cysts are noted. There is a large 2.1 cm gallstone in the neck of the gallbladder. There is no evidence of biliary ductal dilatation, but a small amount of biliary pneumatosis is noted. The aorta demonstrates minimal atherosclerotic changes. There is no evidence of aneurysm or dissection. There is no evidence of abdominal lymphadenopathy or ascites. Pelvis: The bowel is unremarkable, with no obstructive or inflammatory changes. There is mild sigmoid diverticulosis without evidence of diverticulitis. The urinary bladder is within normal limits. The other pelvic structures appear grossly intact. There is no evidence of pelvic lymphadenopathy or ascites. Bones: There are no suspicious osseous abnormalities seen. Multilevel degenerative disc disease is noted from L2 through L4, is stable. Impression: 1. Large impacted gallstone in the neck of the gallbladder. No evidence of acute cholecystitis. Minimal biliary pneumatosis noted. No evidence of biliary ductal dilatation. 2. Moderate sized hiatal hernia. 3. Bilateral simple renal cysts, grossly stable. No evidence of hydronephrosis. 4. No obstructive or inflammatory bowel changes. Mild sigmoid diverticulosis. 5. Stable spondylosis of the lumbar spine. Electronically signed on Aug 18, 2018 1:12:51 AM EST by: Manny Chen M.D., MBA Certified By [facility]BR & CBC[facility] Fellowship Trained MRI and CT Specialist 08/18/18 01:[address] Gan, who is aware and agrees with plan. Accepts pt in to her service. Pt will be admitted to [facility] for cholecystitis. - Lab Interpretations I have reviewed the lab results: Yes - RAD Interpretation [employer] Supervisor: ED Physician, Radiologist - EKG Interpretation Interpreted by ED Physician: Yes Type: 12 lead EKG - Scribe Statement The provider has reviewed the documentation as recorded by the Audiibchad Lugo Provider Scribe Attestation: All medical record entries made by the Scribe were at my direction and personally dictated by me. I have reviewed the chart and agree that the record accurately reflects my personal performance of the history, physical exam, medical decision making, and the department course for this patient. I have also personally directed, reviewed, and agree with the discharge instructions and disposition. Disposition/Present on Arrival - Present on Arrival Any Indicators Present on Arrival: No History of DVT/PE: No History of Uncontrolled Diabetes: No Urinary Catheter: No History of Decub. Ulcer: No History Surgical Site Infection Following: None - Disposition Have Diagnosis and Disposition been Completed?: Yes Diagnosis: Cholecystitis with cholelithiasis Disposition: HOSPITALIZED Disposition Time: 01:20 Condition: FAIR
[2018-08-17] MEDS ORDERED: Sodium Chloride 0.9% 1,000 ML IV SCH (23:30)
[2018-08-17 23:34] LABS: BASO # 0.04 K/mm3 (0.0-2.0); BASO % 0.2 % (0.0-3.0); EOS # 0.1 (0.0-0.7); EOS % 0.3 % (1.5-5.0); GRAN # 8.27 (1.4-6.5); GRAN % 38.1 % (50.0-68.0); LYMPH # 12.7 (1.2-3.4); LYMPH % 58.5 % (22.0-35.0); MEAN CELL VOLUME 88.3 fl (80.0-105.0); MEAN CORPUSCULAR HEMOGLOBIN 29.8 pg (25.0-35.0); MEAN CORPUSCULAR HGB CONC 33.7 g/dl (31.0-37.0); MEAN PLATELET VOLUME 9.6 fl (7.0-11.0); MONO # 0.6 (0.1-0.6); MONO % 2.9 % (1.0-6.0); RBC 4.87 10^6/uL (3.5-6.1); RED CELL DISTRIBUTION WIDTH 12.8 % (11.5-14.5); WHITE BLOOD COUNT 21.7 10^3/uL (4.5-11.0)
[2018-08-17 23:41] LABS: INR 0.93; PARTIAL THROMBOPLASTIN TIME 26.8 Seconds (25.1-36.5); PROTHROMBIN TIME 10.6 SECONDS (9.4-12.5)
[2018-08-17 23:43] LABS: HEMOGLOBIN 14.5 g/dL (12.0-16.0)
[2018-08-17 23:45] LABS: ALB/GLOB RATIO 1.3 (1.1-1.8); ALBUMIN 4.8 g/dL (3.0-4.8); ALT/SGPT 40 U/L (7-56); AMYLASE 132 U/L (35-125); AST/SGOT 39 U/L (14-36); BLOOD UREA NITROGEN 15 mg/dL (7-21); CALCIUM 9.9 mg/dL (8.4-10.5); GFR NON-AFRICAN AMERICAN > 60; LIPASE 198 U/L (23-300)
[2018-08-17 23:56] LABS: TROPONIN I < 0.01 ng/mL
[2018-08-18] MEDS ORDERED: Iohexol 350 MG/100 ML VIAL ONE (00:09)
[2018-08-18] MEDS ORDERED: Morphine 2 mg/ml ISec IVP STA (01:07)
[2018-08-18] MEDS ORDERED: Sodium Chloride 0.9% 1,000 ML IV STA (01:35)
[2018-08-18] MEDS ORDERED: cefTRIAXone 1 gm 1 GM/100 ML BAG IVPB STA (01:36)
[2018-08-18 01:37] LABS: URINE APPEARANCE CLEAR (CLEAR); URINE BILIRUBIN NEGATIVE (NEGATIVE); URINE BLOOD NEGATIVE (NEGATIVE); URINE COLOR YELLOW (YELLOW); URINE GLUCOSE (UA) NEGATIVE (NEGATIVE); URINE LEUKOCYTE ESTERASE NEGATIVE Leu/uL (NEGATIVE); URINE PROTEIN NEGATIVE mg/dL (<30 mg/dL); URINE UROBILINOGEN 0.2 E.U./dL (<1 E.U./dL)
[2018-08-18] MEDS ORDERED: metroNIDAZOLE IV 500 mg/100 ml 500 MG/100 ML BAG IVPB STA (01:37)
[2018-08-18] MEDS: Morphine 2 mg/ml ISec IVP PRN ×3 (02:48→12:41)
[2018-08-18 03:58] VITALS: BMI 31.8
--- NOTE | 2018-08-18 09:54 | CARD ---
APPROVED REPORT Date of service: 08/17/2018 EKG Measurement Heart [id number] <Conclusion> Normal sinus rhythm Inferior infarct, age undetermined PRWP LAD NSSTW changes
--- NOTE | 2018-08-18 10:39 | RAD ---
Date of service: 08/17/2018 HISTORY: cp COMPARISON: 09/10/2017 FINDINGS: LUNGS: No active pulmonary disease. PLEURA: No significant pleural effusion identified, no pneumothorax apparent. CARDIOVASCULAR: Mild aortic calcification Normal cardiac size. No pulmonary vascular congestion. OSSEOUS STRUCTURES: No significant abnormalities. VISUALIZED UPPER ABDOMEN: Normal. OTHER FINDINGS: None. IMPRESSION: No active disease.
--- NOTE | 2018-08-18 12:06 | CP.PCM.CON ---
<Alexander Aquino - Last Filed: 08/18/18 17:17> History of Present Illness - History of Present Illness History of Present Illness: Resident Consult Note for Surgery: Dr. Zheng Patient is a 82 year old female with past medical history choledocholithiasis, cholelithiasis, HTN, CAD s/p 2 stents presenting with chief complaint of abdominal pain located in her left upper quadrant which began last night. Patient describes the pain as a constant pressure like sensation radiating from left to right upper quadrant and also radiation to the back. She states pain has improved since admission. She also admits to nausea and 6 episodes nonbloody, nonbilious vomiting. Last bowel movement was yesterday morning. Patient was admitted to [facility] a year prior and underwent ERCP for choledocholithiasis and cholelithiasis with sphincterotomy, PD stent placement, and small stone extraction. Patient developed pancreatitis post procedure. Patient had planned for cholecystectomy however had abnormal stress test and subsequently went for cardiac cath with 2 stents placed. Denies fevers, chills, chest pain, shortness of breath, diarrhea, constipation, hematochezia. PMH: choledocholithiasis cholelithiasis, HTN, CAD s/p 2 stents PSH: right ovary, hysterectomy, cardiac cath, ERCP SHx: denies alcohol, tobacco, illicit drug use FHx: sister (breast cancer), brother (CAD) Allergies: alendronate sodium PMD: Dr. Johnson Review of Systems - Review of Systems All systems: reviewed and no additional remarkable complaints except (as stated in HPI) Past Patient History - Infectious Disease Hx of Infectious Diseases: None - Past Medical History & Family History Past Medical History?: Yes - Past Social History Smoking Status: Never Smoked - CARDIAC Hx Cardiac Disorders: Yes Hx Hypercholesterolemia: Yes Hx Hypertension: Yes Hx Pacemaker: No Other/Comment: Cardiac stent x 2. [place]: inferior infarct - PULMONARY Hx Respiratory Disorders: No - NEUROLOGICAL Hx Neurological Disorder: No - HEENT Hx HEENT Problems: No - RENAL Hx Chronic Kidney Disease: No - ENDOCRINE/METABOLIC Hx Endocrine Disorders: No - HEMATOLOGICAL/ONCOLOGICAL Hx Blood Disorders: No - INTEGUMENTARY Hx Dermatological Problems: No - MUSCULOSKELETAL/RHEUMATOLOGICAL Hx Musculoskeletal Disorders: Yes Hx Falls: No Hx Osteoporosis: Yes - GASTROINTESTINAL Hx Gastrointestinal Disorders: Yes Other/Comment: moderate sized hiatal hernia. diverculosis - GENITOURINARY/GYNECOLOGICAL Hx Genitourinary Disorders: No Other/Comment: hysterectomy yr unknoen - PSYCHIATRIC Hx Emotional Abuse: No Hx Physical Abuse: No Hx Substance Use: No - SURGICAL HISTORY Hx Surgeries: Yes Hx Cardiac Catheterization: Yes Hx Coronary Stent: Yes (stent x 2) Hx Hysterectomy: Yes Other/Comment: cyst from ovary - ANESTHESIA Hx Anesthesia Reactions: No Hx Malignant Hyperthermia: No Meds Allergies/Adverse Reactions: Allergies Allergy/AdvReac Type Severity Reaction Status Date / Time alendronate sodium Allergy VOMITING Verified 08/17/18 23:02 [From Fosamax] - Medications Medications: Current Medications Metronidazole (Flagyl) 500 mg in 100 mls @ 100 mls/hr IVPB Q8 [facility]ATEO; Protocol Ceftriaxone Sodium (Rocephin 1 Gram Ivpb) 1 gm in 100 mls @ 100 mls/hr IVPB DAILY [facility]; Protocol Morphine Sulfate (Morphine) 2 mg IVP Q4H PRN PRN Reason: Pain, moderate (4-7) Last Admin: 08/18/18 06:22 Dose: 2 mg Non-Formulary Medication (Metoprolol Succinate [Kapspargo Sprinkle]) 25 mg PO DAILY MATEO Ondansetron HCl (Zofran Inj) 4 mg IVP Q4H PRN PRN Reason: Nausea/Vomiting Last Admin: 08/18/18 06:27 Dose: 4 mg Physical Exam - Constitutional Appears: Well, Non-toxic, No Acute Distress - Head Exam Head Exam: ATRAUMATIC, NORMOCEPHALIC - Eye Exam Eye Exam: EOMI, Normal appearance - Neck Exam Neck exam: Positive for: Full Rom - Respiratory Exam Respiratory Exam: Clear to Auscultation Bilateral, NORMAL BREATHING PATTERN. absent: Accessory Muscle Use, Respiratory Distress - Cardiovascular Exam Cardiovascular Exam: REGULAR RHYTHM, +S1, +S2 - GI/Abdominal Exam GI & Abdominal Exam: Soft, Tenderness (RUQ). absent: Distended, Firm, Guarding, Rebound, Rigid - Back Exam Back exam: NORMAL INSPECTION. absent: CVA tenderness (L), CVA tenderness (R) - Neurological Exam Neurological exam: Alert, Oriented x3 - Psychiatric Exam Psychiatric exam: Normal Affect, Normal Mood - Skin Skin Exam: Dry, Intact, Normal Color, Warm Results - Vital Signs Recent Vital Signs: Last Vital Signs Temp 99.4 F 08/18/18 09:32 Pulse 91 H 08/18/18 06:00 Resp 17 08/18/18 06:00 BP 151/81 H 08/18/18 06:00 Pulse Ox 94 L 08/18/18 06:00 - Labs Result Diagrams: 08/17/18 23:16 08/17/18 23:16 Labs: Laboratory Results - last 24 hr 08/17/18 08/17/18 08/17/18 23:16 23:16 23:16 WBC 21.7 H RBC 4.87 Hgb 14.5 D Hct 43.0 MCV 88.3 MCH 29.8 MCHC 33.7 RDW 12.8 Plt Count 246 MPV 9.6 Gran % 38.1 L Lymph % (Auto) 58.5 H [place] % (Auto) 2.9 Eos % (Auto) 0.3 L Baso % (Auto) 0.2 Gran # 8.27 H Lymph # (Auto) 12.7 H [place] # (Auto) 0.6 Eos # (Auto) 0.1 Baso # (Auto) 0.04 PT 10.6 INR 0.93 APTT 26.8 Sodium 139 Potassium 4.9 Chloride 103 Carbon Dioxide 27 Anion Gap 14 BUN 15 Creatinine 0.6 L Est GFR ( Amer) > 60 Est GFR (Non-Af Amer) > 60 Random Glucose 147 H Lactic Acid Calcium 9.9 Total Bilirubin 0.6 AST 39 H D ALT 40 Alkaline Phosphatase 140 H D Lactate Dehydrogenase 555 Total Creatine Kinase 46 Troponin I < 0.01 Total Protein 8.4 H Albumin 4.8 Globulin 3.6 Albumin/Globulin Ratio 1.3 Amylase 132 H Lipase 198 Urine Color Urine Appearance Urine pH Ur Specific [place] Urine Protein Urine Glucose (UA) Urine Ketones Urine Blood Urine Nitrate Urine Bilirubin Urine Urobilinogen Ur Leukocyte Esterase 08/18/18 08/18/18 00:45 01:00 WBC RBC Hgb Hct MCV MCH MCHC RDW Plt Count MPV Gran % Lymph % (Auto) [place] % (Auto) Eos % (Auto) Baso % (Auto) Gran # Lymph # (Auto) [place] # (Auto) Eos # (Auto) Baso # (Auto) PT INR APTT Sodium Potassium Chloride Carbon Dioxide Anion Gap BUN Creatinine Est GFR ( Amer) Est GFR (Non-Af Amer) Random Glucose Lactic Acid 1.8 Calcium Total Bilirubin AST ALT Alkaline Phosphatase Lactate Dehydrogenase Total Creatine Kinase Troponin I Total Protein Albumin Globulin Albumin/Globulin Ratio Amylase Lipase Urine Color Yellow Urine Appearance Clear Urine pH 8.0 Ur Specific [place] 1.010 Urine Protein Negative Urine Glucose (UA) Negative Urine Ketones Negative Urine Blood Negative Urine Nitrate Negative Urine Bilirubin Negative Urine Urobilinogen 0.2 Ur Leukocyte Esterase Negative Assessment & Plan - Assessment and Plan (Free Text) Assessment: Patient is a 82 year old female with past medical history choledocholithiasis, cholelithiasis, HTN, CAD s/p 2 stents presenting with chief complaint of abdominal pain. Plan: - afebrile, positive leukocytosis - CTAP shows large impacted gallstone in neck of gallbladder without evidence of cholecystitis, mild sigmoid diverticulosis - rocephin, flagyl - LR @ 100 ccs/hr - will discuss with patient surgical options - further management per primary team Alexander Aquino PGY-1 - Date & Time Date: 08/18/18 Time: 12:06 <Tree Zheng - Last Filed: 08/22/18 22:59> Meds - Medications Medications: Current Medications Amlodipine Besylate (Norvasc) 5 mg PO DAILY [facility] Last Admin: 08/22/18 09:56 Dose: 5 mg Enoxaparin Sodium (Lovenox) 40 mg SC DAILY [facility]; Protocol Last Admin: 08/22/18 09:52 Dose: 40 mg Hydromorphone HCl (Dilaudid) 1 mg IVP Q4H PRN PRN Reason: Pain, severe (8-10) Last Admin: 08/22/18 13:00 Dose: 1 mg Metronidazole (Flagyl) 500 mg in 100 mls @ 100 mls/hr IVPB Q8 [facility]ATEO; Protocol Last Admin: 08/22/18 21:45 Dose: 100 mls/hr Ceftriaxone Sodium (Rocephin 1 Gram Ivpb) 1 gm in 100 mls @ 100 mls/hr IVPB DAILY [facility]; Protocol Last Admin: 08/22/18 09:53 Dose: 100 mls/hr Levalbuterol HCl (Xopenex) 1.25 mg IH [id number] [facility] Last Admin: 08/22/18 21:10 Dose: 1.25 mg Metoprolol Tartrate (Lopressor) 25 mg PO BRKDIN [facility] Last Admin: 08/22/18 16:53 Dose: 25 mg Ondansetron HCl (Zofran Inj) 4 mg IVP Q4H PRN PRN Reason: Nausea/Vomiting Last Admin: 08/18/18 12:41 Dose: 4 mg Pantoprazole Sodium (Protonix Inj) 40 mg IVP DAILY [facility] Last Admin: 08/22/18 09:53 Dose: 40 mg Results - Vital Signs Recent Vital Signs: Last Vital Signs Temp 98.5 F 08/22/18 22:00 Pulse 83 08/22/18 22:00 Resp 18 08/22/18 22:00 BP 141/79 08/22/18 22:00 Pulse Ox 97 08/22/18 22:00 - Labs Result Diagrams: 08/22/18 08:27 08/22/18 08:27 Labs: Laboratory Results - last 24 hr 08/22/18 08/22/18 08:27 08:27 WBC 19.9 H D RBC 3.98 Hgb 11.4 L Hct 35.2 L MCV 88.4 MCH 28.6 MCHC 32.4 RDW 13.6 Plt Count 182 MPV 9.6 Gran % 53.4 Lymph % (Auto) 38.6 H [place] % (Auto) 7.1 H Eos % (Auto) 0.7 L Baso % (Auto) 0.2 Gran # 10.64 H Lymph # (Auto) 7.7 H [place] # (Auto) 1.4 H Eos # (Auto) 0.1 Baso # (Auto) 0.03 Sodium 140 Potassium 3.1 L Chloride 103 Carbon Dioxide 32 Anion Gap 8 L BUN 11 Creatinine 0.4 L Est GFR ( Amer) > 60 Est GFR (Non-Af Amer) > 60 Random Glucose 104 Calcium 8.3 L Total Bilirubin 0.4 AST 28 ALT 47 Alkaline Phosphatase 129 H Total Protein 5.9 Albumin 3.0 Globulin 2.8 Albumin/Globulin Ratio 1.1 Assessment & Plan - Assessment and Plan (Free Text) Plan: Patient was seen, examined and evaluated by me. I agree with resident's asses sment and plan.
[2018-08-18] MEDS: Lactated Ringer's 1,000 ML IV SCH (13:09)
[2018-08-18] MEDS: metroNIDAZOLE IV 500 mg/100 ml 500 MG/100 ML BAG IVPB SCH ×2 (13:09→22:45)
--- NOTE | 2018-08-18 13:59 | CT ---
Date of service: 08/18/2018 PROCEDURE: CT Abdomen and Pelvis with contrast HISTORY: abd pain COMPARISON: 09/12/2017 TECHNIQUE: Contrast dose: Radiation dose: Total exam DLP = 495.89 mGy-cm. This CT exam was performed using one or more of the following dose reduction techniques: Automated exposure control, adjustment of the mA and/or kV according to patient size, and/or use of iterative reconstruction technique. FINDINGS: LOWER THORAX: Large hiatal hernia. LIVER: Unremarkable. No gross lesion or ductal dilatation. GALLBLADDER AND BILE DUCTS: Large impacted gallstone in the neck of the gallbladder without evidence of cholecystitis. Mild intrahepatic biliary air; compatible with previous sphincterotomy. PANCREAS: Unremarkable. No gross lesion or ductal dilatation. SPLEEN: Unremarkable. ADRENALS: Unremarkable. No mass. KIDNEYS AND URETERS: Bilateral simple renal cysts, unchanged. VASCULATURE: Unremarkable. No aortic aneurysm. No aortic atherosclerotic calcification or mural plaque present. BOWEL: Mild sigmoid diverticulosis. Large roughly 3 centimeter duodenal diverticulum. APPENDIX: Normal appendix. PERITONEUM: Unremarkable. No free fluid. No free air. LYMPH NODES: Unremarkable. No enlarged lymph nodes. BLADDER: Unremarkable. REPRODUCTIVE: Hysterectomy. BONES: No acute fracture. OTHER FINDINGS: None. IMPRESSION: No acute pathology. Large impacted gallstone in the gallbladder neck.
--- NOTE | 2018-08-18 14:03 | US ---
Date of service: 08/18/2018 HISTORY: r/p Acute Cholecystitis COMPARISON: None. TECHNIQUE: Sonographic evaluation of the abdomen. FINDINGS: LIVER: Measures 12.8 cm. Increased echogenicity of the liver parenchyma. No mass. No intrahepatic bile duct dilatation. GALLBLADDER: Large stone. 2.4 cm mild mural thickening. COMMON BILE DUCT: Measures 6 mm. No stones. No dilatation. PANCREAS: Unremarkable as visualized. No mass. No ductal dilatation. RIGHT KIDNEY: Measures 10.6 x 4.4 x 5.4cm. Normal echogenicity. No calculus, mass, or hydronephrosis. 2 cm cyst LEFT KIDNEY: Measures 10.5 x 4.8 x 4.8cm. Normal echogenicity. No calculus, mass, or hydronephrosis. 4 cm cyst in the lower pole 1 cm cyst midpole SPLEEN: Normal in size and contour. No mass. 10.7 x 3.3 x 2.8 cm AORTA: No aneurysmal dilatation. IVC: Unremarkable. OTHER FINDINGS: None. IMPRESSION: Large 2.4 cm gallstone. Mild mural thickening of the gallbladder wall
--- NOTE | 2018-08-18 14:07 | CP.PCM.CON ---
<Jerald Ardon - Last Filed: 08/18/18 17:38> History of Present Illness - History of Present Illness History of Present Illness: GI Consult Note for Dr. Red Reason for consultation: Abdominal Pain Patient is an 82 yo F with PMH of HTN, CAD s/p stents, cholelithiasis/choledocolithiasis, and HLD [place] [facility] pain, nausea, and 6 episodes of NBNB vomiting. Patient was admitted in September of 2017 for choledocolithiasis. At that time, she underwent ERCP with sphincterot anand, removal of stone, and placement of pancreatic duct stent. Her hospital course was complicated by pancreatitis s/p ERCP. Surgery was deferred to outpatient at that time because patient required cardiac catherization with stent placement in October 2017. Patient is currently on DAPT. Patient states that her abdominal pain is very similar to her admission a year ago and is in the RUQ and radiates to the opposite. Patient states that eating makes the pain worse and is controlled somewhat with IV pain medications. Patient denies CP, SOB, fever, chills, CHUN, dizziness, dysuria, or hematuria. PMH: as above Surg: ERCP, cardiac cath, hysterectom, ovarian cyst removal All: Alendronate FHx: Sister breast CA, brother CAD SH: Denies EtOH, tobacco, and illicit drug use Review of Systems - Review of Systems All systems: reviewed and no additional remarkable complaints except (12 point ROS reviewed and is negative other than what is stated in HPI.) Past Patient History - Infectious Disease Hx of Infectious Diseases: None - Past Medical History & Family History Past Medical History?: Yes - Past Social History Smoking Status: Never Smoked - CARDIAC Hx Cardiac Disorders: Yes Hx Hypercholesterolemia: Yes Hx Hypertension: Yes Hx Pacemaker: No Other/Comment: Cardiac stent x 2. UT: inferior infarct - PULMONARY Hx Respiratory Disorders: No - NEUROLOGICAL Hx Neurological Disorder: No - HEENT Hx HEENT Problems: No - RENAL Hx Chronic Kidney Disease: No - ENDOCRINE/METABOLIC Hx Endocrine Disorders: No - HEMATOLOGICAL/ONCOLOGICAL Hx Blood Disorders: No - INTEGUMENTARY Hx Dermatological Problems: No - MUSCULOSKELETAL/RHEUMATOLOGICAL Hx Musculoskeletal Disorders: Yes Hx Falls: No Hx Osteoporosis: Yes - GASTROINTESTINAL Hx Gastrointestinal Disorders: Yes Other/Comment: moderate sized hiatal hernia. diverculosis - GENITOURINARY/GYNECOLOGICAL Hx Genitourinary Disorders: No Other/Comment: hysterectomy yr unknoen - PSYCHIATRIC Hx Emotional Abuse: No Hx Physical Abuse: No Hx Substance Use: No - SURGICAL HISTORY Hx Surgeries: Yes Hx Cardiac Catheterization: Yes Hx Coronary Stent: Yes (stent x 2) Hx Hysterectomy: Yes Other/Comment: cyst from ovary - ANESTHESIA Hx Anesthesia Reactions: No Hx Malignant Hyperthermia: No Meds Allergies/Adverse Reactions: Allergies Allergy/AdvReac Type Severity Reaction Status Date / Time alendronate sodium Allergy VOMITING Verified 08/17/18 23:02 [From Fosamax] - Medications Medications: Current Medications Hydromorphone HCl (Dilaudid) 1 mg IVP Q4H PRN PRN Reason: Pain, severe (8-10) Metronidazole (Flagyl) 500 mg in 100 mls @ 100 mls/hr IVPB Q8 [facility]; Protocol Last Admin: 08/18/18 13:09 Dose: 100 mls/hr Ceftriaxone Sodium (Rocephin 1 Gram Ivpb) 1 gm in 100 mls @ 100 mls/hr IVPB DAILY [facility]; Protocol Lactated Ringer's (Lactated Ringer's) 1,000 mls @ 100 mls/hr IV .Q10H [facility] Last Admin: 08/18/18 13:09 Dose: 100 mls/hr Non-Formulary Medication (Metoprolol Succinate [Kapspargo Sprinkle]) 25 mg PO DAILY [facility] Last Admin: 08/18/18 13:09 Dose: Not Given Ondansetron HCl (Zofran Inj) 4 mg IVP Q4H PRN PRN Reason: Nausea/Vomiting Last Admin: 08/18/18 12:41 Dose: 4 mg Physical Exam - Constitutional Appears: No Acute Distress - Head Exam Head Exam: NORMAL INSPECTION, NORMOCEPHALIC - Eye Exam Eye Exam: EOMI, Normal appearance - ENT Exam ENT Exam: Mucous Membranes Moist, Normal Exam - Neck Exam Neck exam: Positive for: Normal Inspection - Respiratory Exam Respiratory Exam: Clear to Auscultation Bilateral. absent: Rales, Rhonchi, Wheezes - Cardiovascular Exam Cardiovascular Exam: RRR, +S1, +S2. absent: Diastolic murmur, Gallop, Systolic Murmur - GI/Abdominal Exam GI & Abdominal Exam: Rebound, Soft, Tenderness (RUQ, positive hinton's). absent: Distended, Guarding - Extremities Exam Extremities exam: Positive for: normal inspection - Back Exam Back exam: NORMAL INSPECTION - Neurological Exam Neurological exam: Alert, Normal Gait, Oriented x3 - Psychiatric Exam Psychiatric exam: Normal Affect, Normal Mood - Skin Skin Exam: Dry, Intact, Normal Color, Warm Results - Vital Signs Recent Vital Signs: Last Vital Signs Temp 99.4 F 08/18/18 09:32 Pulse 91 H 08/18/18 06:00 Resp 17 08/18/18 06:00 BP 151/81 H 08/18/18 06:00 Pulse Ox 94 L 08/18/18 06:00 - Labs Result Diagrams: 08/17/18 23:16 08/17/18 23:16 Labs: Laboratory Results - last 24 hr 08/17/18 08/17/18 08/17/18 23:16 23:16 23:16 WBC 21.7 H RBC 4.87 Hgb 14.5 D Hct 43.0 MCV 88.3 MCH 29.8 MCHC 33.7 RDW 12.8 Plt Count 246 MPV 9.6 Gran % 38.1 L Lymph % (Auto) 58.5 H [place] % (Auto) 2.9 Eos % (Auto) 0.3 L Baso % (Auto) 0.2 Gran # 8.27 H Lymph # (Auto) 12.7 H [place] # (Auto) 0.6 Eos # (Auto) 0.1 Baso # (Auto) 0.04 PT 10.6 INR 0.93 APTT 26.8 Sodium 139 Potassium 4.9 Chloride 103 Carbon Dioxide 27 Anion Gap 14 BUN 15 Creatinine 0.6 L Est GFR ( Amer) > 60 Est GFR (Non-Af Amer) > 60 Random Glucose 147 H Lactic Acid Calcium 9.9 Total Bilirubin 0.6 AST 39 H D ALT 40 Alkaline Phosphatase 140 H D Lactate Dehydrogenase 555 Total Creatine Kinase 46 Troponin I < 0.01 Total Protein 8.4 H Albumin 4.8 Globulin 3.6 Albumin/Globulin Ratio 1.3 Amylase 132 H Lipase 198 Urine Color Urine Appearance Urine pH Ur Specific [place] Urine Protein Urine Glucose (UA) Urine Ketones Urine Blood Urine Nitrate Urine Bilirubin Urine Urobilinogen Ur Leukocyte Esterase 08/18/18 08/18/18 00:45 01:00 WBC RBC Hgb Hct MCV MCH MCHC RDW Plt Count MPV Gran % Lymph % (Auto) [place] % (Auto) Eos % (Auto) Baso % (Auto) Gran # Lymph # (Auto) [place] # (Auto) Eos # (Auto) Baso # (Auto) PT INR APTT Sodium Potassium Chloride Carbon Dioxide Anion Gap BUN Creatinine Est GFR ( Amer) Est GFR (Non-Af Amer) Random Glucose Lactic Acid 1.8 Calcium Total Bilirubin AST ALT Alkaline Phosphatase Lactate Dehydrogenase Total Creatine Kinase Troponin I Total Protein Albumin Globulin Albumin/Globulin Ratio Amylase Lipase Urine Color Yellow Urine Appearance Clear Urine pH 8.0 Ur Specific [place] 1.010 Urine Protein Negative Urine Glucose (UA) Negative Urine Ketones Negative Urine Blood Negative Urine Nitrate Negative Urine Bilirubin Negative Urine Urobilinogen 0.2 Ur Leukocyte Esterase Negative Assessment & Plan - Assessment and Plan (Free Text) Assessment: 82 yo F with PMH of HTN, CAD s/p stents, cholelithiasis/choledocolithiasis, and HLD [place] [facility] [place]. Patient was found to have large impacted gallstone in the neck of the gallbladder on CT scan. On abdominal ultrasound large 2.4 cm gallstone was found and mild mural thickening of the gallbladder wall. HIDA scan showed obstructed cystic duct consistent with acute cholecystitis. 1. Acute cholecystitis 2. Cholelithiasis Plan: - Mild elevation in ALP, normal LFT's - Hold DAPT - Cont Ceftriaxone and Flagyl - Cont LR - Cardio consulted for clearance with recent history of stenting and current DAPT - F/u surgery for cholecystectomy planning Patient seen and discussed in detail with Dr. Red. Alex Ardon DO PGY2 <Carol Red V - Last Filed: 08/18/18 23:58> Meds - Medications Medications: Current Medications Enoxaparin Sodium (Lovenox) 40 mg SC DAILY [facility]; Protocol Hydromorphone HCl (Dilaudid) 1 mg IVP Q4H PRN PRN Reason: Pain, severe (8-10) Last Admin: 08/18/18 16:33 Dose: 1 mg Metronidazole (Flagyl) 500 mg in 100 mls @ 100 mls/hr IVPB Q8 [facility]; Protocol Last Admin: 08/18/18 22:45 Dose: 100 mls/hr Ceftriaxone Sodium (Rocephin 1 Gram Ivpb) 1 gm in 100 mls @ 100 mls/hr IVPB DAILY [facility]; Protocol Lactated Ringer's (Lactated Ringer's) 1,000 mls @ 100 mls/hr IV .Q10H [facility] Last Admin: 08/18/18 13:09 Dose: 100 mls/hr Non-Formulary Medication (Metoprolol Succinate [Kapspargo Sprinkle]) 25 mg PO DAILY [facility] Last Admin: 08/18/18 13:09 Dose: Not Given Ondansetron HCl (Zofran Inj) 4 mg IVP Q4H PRN PRN Reason: Nausea/Vomiting Last Admin: 08/18/18 12:41 Dose: 4 mg Pantoprazole Sodium (Protonix Inj) 40 mg IVP DAILY [facility] Results - Vital Signs Recent Vital Signs: Last Vital Signs Temp 98.6 F 08/18/18 22:00 Pulse 94 H 08/18/18 22:00 Resp 18 08/18/18 22:00 BP 126/77 08/18/18 22:00 Pulse Ox 90 L 08/18/18 22:00 - Labs Result Diagrams: 08/17/18 23:16 08/17/18 23:16 Labs: Laboratory Results - last 24 hr 08/18/18 08/18/18 00:45 01:00 Lactic Acid 1.8 Urine Color Yellow Urine Appearance Clear Urine pH 8.0 Ur Specific [place] 1.010 Urine Protein Negative Urine Glucose (UA) Negative Urine Ketones Negative Urine Blood Negative Urine Nitrate Negative Urine Bilirubin Negative Urine Urobilinogen 0.2 Ur Leukocyte Esterase Negative Attending/Attestation - Attestation I have personally seen and examined this patient.: Yes I have fully participated in the care of the patient.: Yes I have reviewed all pertinent clinical information: Yes Notes (Text): This is an addendum to GI consult report dictated by the Manager Fraud. The patient was seen and evaluated earlier. Medical records, lab studies, imagings were reviewed. Last 24 hours events reviewed. Agreed with the above treatment plan as outlined in Manager Fraud 's notes with the addition of the following 08/18/18 23:57
--- NOTE | 2018-08-18 14:21 | CP.PCM.PCO ---
Physician Communication Note - Physician Communication Note Physician Communication Note: awaiting Hida Scan and cardiac clearance, will reeval in am
--- NOTE | 2018-08-18 14:30 | HP ---
DATE OF EXAM: 08/18/2018 HISTORY OF PRESENT ILLNESS: The patient is a 82-year-old known to me from previous admission, came to emergency room because of abdominal discomfort. She says going on for few days last night. Pain started at epigastric area, radiating towards mid chest and right upper quadrant. Denies any fever or chills. No history of hemoptysis. No hematemesis. Did have chills at home. The patient says she had nausea and one episode of vomiting. PAST MEDICAL HISTORY: Significant for: 1. Hypertension. 2. Cholelithiasis. 3. Status post hysterectomy. 4. Coronary artery disease. 5. Status post angioplasty. 6. The patient had cardiac cath done in 10/2017. 7. She was found to have coronary artery disease and proximal LAD and proximal circumflex where she had drug-eluted stent of left anterior descending and circumflex artery. 8. Hyperlipidemia. 9. Hypertension. ALLERGIES: THE PATIENT IS ALLERGIC TO FOSAMAX. MEDICATIONS: At home, she is on; 1. Amlodipine 5 mg daily. 2. Evista 60 mg daily. 3. Multivitamin. 4. Metoprolol 25 mg daily. 5. Claritin 10 mg daily. 6. Lisinopril 40 mg daily. 7. Plavix 75 mg daily. 8. Lipitor 20 mg daily. 9. Aspirin 81 mg daily. REVIEW OF SYSTEMS: Significant for epigastric discomfort. No nausea or vomiting. PHYSICAL EXAMINATION GENERAL: She is awake, alert, oriented, and communicative. VITAL SIGNS: Temperature of 99.4, pulse 91, respirations 17, and blood pressure 151/81. LUNGS: Bilateral fair airflow. No rhonchi or crackle. HEART: S1 and S2 audible. ABDOMEN: Soft and nontender. No rebound. No guarding. NEUROLOGICAL: The patient is awake, alert, oriented, and able to communicate. LABORATORY DATA: WBC 21.7, hemoglobin 14, hematocrit 43, and platelet 246. PT 10.6, INR 0.90. Chemistry; sodium 139, potassium 4.9, chloride 103, CO2 27, BUN 15, creatinine 0.6, blood sugar 147, alkaline phosphatase 140, AST 39. Urine analysis is unremarkable. EKG shows normal sinus rhythm, inferior infarct, age undetermined. X-ray of chest, no active disease. Abdominal ultrasound is pending. CT scan of the abdomen with pelvis is pending. ASSESSMENT: 1. Abdominal pain secondary to probably cholecystitis. The patient has a history of cholelithiasis, had endoscopic retrograde cholangiopancreatography done and common bowel duct stone was removed. 2. Hypertension. 3. Hyperlipidemia. 4. Coronary artery disease status post angioplasty. PLAN: The patient was scheduled to have cholecystectomy done in past last year, but apparently it did not happen. We will get head scan done and CT scan of the abdomen and pelvis done, we will follow up that up and start her on IV antibiotics. Keep her n.p.o. except medications and start her on metoprolol and we will hold her aspirin and Plavix for now. We will discuss with surgeon and the GI. Lillian Gan MD
[2018-08-18] MEDS: HYDROmorphone 1 mg/ml ISec IVP PRN (16:33)
--- NOTE | 2018-08-18 16:38 | NM ---
Date of service: 08/18/2018 PROCEDURE: Nuclear Medicine Hepatobiliary Scan HISTORY: r/o cholecystitis COMPARISON: August 18, 2018 abdominal ultrasound. TECHNIQUE: 5.0 mCi of technetium 99m Mebrofenin was administered intravenously. Planar images of the abdomen were obtained at 5 min intervals to 60 mins. Delayed images were also obtained. FINDINGS: LIVER: Timely and homogenous uptake. COMMON BILE DUCT: identified at 5 mins. GALLBLADDER: Visible 2 hr. SMALL BOWEL: Identified at 5 mins. IMPRESSION: Abnormal hepatobiliary Scan. The cystic duct is occluded, presumptive evidence for acute cholecystitis
--- NOTE | 2018-08-18 20:08 | CON ---
DATE: 08/18/2018 TYPE OF DICTATION: Cardiac consult. REASON FOR CONSULTATION: Preop evaluation and risk stratification for possible cholecystectomy, history of coronary artery disease, history of stent in 10/2017. BRIEF CLINICAL HISTORY: This is an 82-year-old female with past medical history significant for history of coronary artery disease, status post cardiac cath with a stent in the proximal LAD and proximal circumflex with a drug-eluting stent in 10/2017; hypertension; hyperlipidemia, who admitted with a cholecystitis, possibly requiring cholecystectomy. Preop evaluation, risk stratification, and Cardiology consult was called. The patient denies any chest pain, shortness of breath, any palpitation. PAST MEDICAL HISTORY: Significant for hypertension, hyperlipidemia, coronary artery disease as above. PAST SURGICAL HISTORY: Significant for hysterectomy. CARDIAC WORKUP: As follows: The patient had a stress test, Lexiscan on 10/05/2017, that is abnormal. Later, the patient had a cardiac catheterization. Lexiscan showed suspicious ischemia, ejection fraction of 75%. The patient had echocardiography done in 10/2017 that showed ejection fraction of 55 %, trace pericardial effusion, no vegetation or thrombus noted, mild aortic stenosis, mild mitral regurgitation, mild tricuspid regurgitation. Cardiac catheterization dated 10/15/2017 revealed 2-vessel critical disease involving proximal LAD and proximal circumflex. Preserved LV function, ejection fraction of 55 %, EDP in the range of 15-18. Successful PTCA with drug-eluting stents of proximal LAD and proximal circumflex PTCA was done. Aggressive medical treatment recommended. The patient was started on aspirin and Plavix. RCA has moderate disease, 30%-40%. SOCIAL HISTORY: Denies smoking. Denies any history of alcohol abuse. CURRENT MEDICATIONS: The patient is taking amlodipine, lisinopril, clopidogrel, aspirin, atorvastatin. REVIEW OF SYSTEMS: As per HPI. PHYSICAL EXAMINATION: GENERAL: Height of the patient is 4 feet 9 inches, weight of the patient is 147 pounds, body mass index 32 kg/m2. VITAL SIGNS: Temperature afebrile, heart rate 100, blood pressure 143/82. HEENT: PERRLA. Extraocular muscles intact. NECK: Supple. No carotid bruit or thyromegaly. CHEST: Clear to auscultation. HEART: S1 and S2, regular. ABDOMEN: Soft. EXTREMITIES: Clubbing and cyanosis, negative. LABORATORY DATA: WBC is 21.7, hemoglobin 14.4, hematocrit 43, platelet count 246. Chemistry shows sodium 139, potassium 4.9, chloride of 106, carbon dioxide 27, anion gap of 14, BUN 15, creatinine 0.6. Troponin 0.01. EKG showed normal sinus, inferior Q-wave undetermined, poor R-wave progression, left axis deviation. IMPRESSION: This is an 82-year-old female with past medical history significant for acute stone; acute cholecystitis; history of coronary artery disease, status post stent in 10/2017, in the proximal left anterior descending and proximal circumflex, admitted with acute cholecystitis. HIDA scan shows abnormal hepatobiliary screen, occluded cystic duct. Possibly, the patient needs surgery. RECOMMENDATIONS: The patient is cleared from Cardiology point of view to go to surgery, emergency. I believe the patient can have surgery after 6 months of drug-eluting stent. We are supposed to hold aspirin and Plavix for 5 days before surgery. The patient had last aspirin and Plavix took on Thursday, yesterday. So, we will discuss with the surgeon. Continue perioperative beta-lamont. We will follow with you. Thank you Dr. Gan for providing us this opportunity in taking care of the patient, Lola Hoffman. Servando Mcelroy MD [place]
[2018-08-19] MEDS: Lactated Ringer's 1,000 ML IV SCH (02:00)
[2018-08-19] MEDS: metroNIDAZOLE IV 500 mg/100 ml 500 MG/100 ML BAG IVPB SCH ×3 (06:32→22:33)
[2018-08-19] MEDS: HYDROmorphone 1 mg/ml ISec IVP PRN ×4 (06:33→23:51)
[2018-08-19 07:17] LABS: BASO # 0.03 K/mm3 (0.0-2.0); BASO % 0.1 % (0.0-3.0); EOS % 0.1 % (1.5-5.0); GRAN # 15.83 (1.4-6.5); GRAN % 61.3 % (50.0-68.0); LYMPH # 8.4 (1.2-3.4); LYMPH % 32.6 % (22.0-35.0); MEAN CELL VOLUME 88.3 fl (80.0-105.0); MEAN CORPUSCULAR HEMOGLOBIN 29.1 pg (25.0-35.0); MEAN PLATELET VOLUME 9.6 fl (7.0-11.0); MONO # 1.5 (0.1-0.6); MONO % 5.9 % (1.0-6.0); PLATELET COUNT 208 10^3/uL (120.0-450.0); RBC 4.29 10^6/uL (3.5-6.1); RED CELL DISTRIBUTION WIDTH 13.3 % (11.5-14.5)
[2018-08-19 07:37] LABS: ALB/GLOB RATIO 1.2 (1.1-1.8); ALBUMIN 3.6 g/dL (3.0-4.8); ALT/SGPT 48 U/L (7-56); AST/SGOT 45 U/L (14-36); BLOOD UREA NITROGEN 11 mg/dL (7-21); CALCIUM 8.5 mg/dL (8.4-10.5); GFR NON-AFRICAN AMERICAN > 60; HDL CHOLESTEROL 68 mg/dL (29-60)
[2018-08-19 07:38] LABS: LDL CHOLESTEROL 45 mg/dL (0-129)
[2018-08-19 08:11] LABS: WHITE BLOOD COUNT 25.9 10^3/uL (4.5-11.0)
[2018-08-19 08:12] LABS: HEMOGLOBIN 12.5 g/dL (12.0-16.0)
--- NOTE | 2018-08-19 08:28 | CP.PCM.PN ---
<Jerald Ardon - Last Filed: 08/19/18 11:25> Subjective - Date & Time of Evaluation Date of Evaluation: 08/19/18 Time of Evaluation: 08:24 - Subjective Subjective: GI Progress Note for Dr. Red Patient seen and examined at bedside. No acute overnight events. Patient states that her abdominal pain is better and is localized to RUQ. Patient has not had BM in 2 days, but is passing flatus. Patient denies CP, SOB, n/v/d, fever, chills, CHUN, or dizziness. Objective - Vital Signs/Intake and Output Vital Signs (last 24 hours): Temp Pulse Resp BP Pulse Ox 98.9 F 92 H 18 142/78 92 L 08/19/18 06:00 08/19/18 06:00 08/19/18 06:00 08/19/18 06:00 08/19/18 06:00 Intake and Output: 08/19/18 08/19/18 06:59 18:59 Intake Total 1200 Balance 1200 - Medications Medications: Current Medications Enoxaparin Sodium (Lovenox) 40 mg SC DAILY [facility]; Protocol Hydromorphone HCl (Dilaudid) 1 mg IVP Q4H PRN PRN Reason: Pain, severe (8-10) Last Admin: 08/19/18 06:33 Dose: 1 mg Metronidazole (Flagyl) 500 mg in 100 mls @ 100 mls/hr IVPB Q8 [facility]; Protocol Last Admin: 08/19/18 06:32 Dose: 100 mls/hr Ceftriaxone Sodium (Rocephin 1 Gram Ivpb) 1 gm in 100 mls @ 100 mls/hr IVPB DAILY [facility]; Protocol Lactated Ringer's (Lactated Ringer's) 1,000 mls @ 100 mls/hr IV .Q10H [facility] Last Admin: 08/19/18 02:00 Dose: 100 mls/hr Non-Formulary Medication (Metoprolol Succinate [Kapspargo Sprinkle]) 25 mg PO DAILY [facility] Last Admin: 08/18/18 13:09 Dose: Not Given Ondansetron HCl (Zofran Inj) 4 mg IVP Q4H PRN PRN Reason: Nausea/Vomiting Last Admin: 08/18/18 12:41 Dose: 4 mg Pantoprazole Sodium (Protonix Inj) 40 mg IVP DAILY [facility] - Labs Labs: 08/19/18 07:00 08/19/18 07:00 PT 10.6 SECONDS (9.4-12.5) 08/17/18 23:16 INR 0.93 08/17/18 23:16 APTT 26.8 Seconds (25.1-36.5) 08/17/18 23:16 - Constitutional Appears: No Acute Distress - Head Exam Head Exam: NORMAL INSPECTION - Eye Exam Eye Exam: Normal appearance Pupil Exam: NORMAL ACCOMODATION - ENT Exam ENT Exam: Mucous Membranes Moist, Normal Exam - Respiratory Exam Respiratory Exam: Clear to Ausculation Bilateral. absent: Rales, Rhonchi, Wheezes - Cardiovascular Exam Cardiovascular Exam: RRR, +S1, +S2. absent: Gallop, Rubs, Murmur - GI/Abdominal Exam GI & Abdominal Exam: Soft, Tenderness (RUQ). absent: Distended, Guarding, Rebound - Rectal Exam Rectal Exam: NORMAL INSPECTION - Extremities Exam Extremities Exam: Normal Inspection - Back Exam Back Exam: NORMAL INSPECTION - Neurological Exam Neurological Exam: Alert, Awake, Oriented x3 - Psychiatric Exam Psychiatric exam: Normal Affect, Normal Mood - Skin Skin Exam: Dry, Intact, Normal Color, Warm Assessment and Plan - Assessment and Plan (Free Text) Assessment: 82 yo F with PMH of HTN, CAD s/p stents, cholelithiasis/choledocolithiasis, and HLD presents to [facility] [place] for abdominal pain. Patient was found to have large impacted gallstone in the neck of the gallbladder on CT scan. On abdominal ultrasound large 2.4 cm gallstone was found and mild mural thickening of the gallbladder wall. HIDA scan showed obstructed cystic duct consistent with acute cholecystitis. 1. Acute cholecystitis 2. Cholelithiasis Plan: - Cont Ceftriaxone and Flagyl - Cont LR - Cont CLD - Cardio consulted - cleared for surgery - Hold DAPT 5 days prior to surgery - Surgery consulted - cholecystectomy planned for Thursday Patient seen and discussed in detail with Dr. Red. Alex Ardon, DO PGY2 <Carol Red V - Last Filed: 08/19/18 23:39> Objective - Vital Signs/Intake and Output Vital Signs (last 24 hours): Temp Pulse Resp BP Pulse Ox 98.1 F 96 H 20 131/72 92 L 08/19/18 14:00 08/19/18 18:16 08/19/18 14:00 08/19/18 18:16 08/19/18 14:00 - Medications Medications: Current Medications Amlodipine Besylate (Norvasc) 5 mg PO DAILY [facility] Last Admin: 08/19/18 10:44 Dose: 5 mg Enoxaparin Sodium (Lovenox) 40 mg SC DAILY [facility]; Protocol Last Admin: 08/19/18 10:43 Dose: 40 mg Hydromorphone HCl (Dilaudid) 1 mg IVP Q4H PRN PRN Reason: Pain, severe (8-10) Last Admin: 08/19/18 16:30 Dose: 1 mg Metronidazole (Flagyl) 500 mg in 100 mls @ 100 mls/hr IVPB Q8 [facility]; Protocol Last Admin: 08/19/18 22:33 Dose: 100 mls/hr Ceftriaxone Sodium (Rocephin 1 Gram Ivpb) 1 gm in 100 mls @ 100 mls/hr IVPB DAILY [facility]; Protocol Last Admin: 08/19/18 10:44 Dose: 100 mls/hr Lactated Ringer's (Lactated Ringer's) 1,000 mls @ 100 mls/hr IV .Q10H [facility] Last Admin: 08/19/18 02:00 Dose: 100 mls/hr Lisinopril (Zestril) 5 mg PO DAILY [facility] Last Admin: 08/19/18 10:45 Dose: 5 mg Metoprolol Tartrate (Lopressor) 25 mg PO BRKDIN [facility] Last Admin: 08/19/18 18:16 Dose: 25 mg Non-Formulary Medication (Metoprolol Succinate [Kapspargo Sprinkle]) 25 mg PO DAILY [facility] Last Admin: 08/19/18 10:43 Dose: Not Given Ondansetron HCl (Zofran Inj) 4 mg IVP Q4H PRN PRN Reason: Nausea/Vomiting Last Admin: 08/18/18 12:41 Dose: 4 mg Pantoprazole Sodium (Protonix Inj) 40 mg IVP DAILY [facility] Last Admin: 08/19/18 10:44 Dose: 40 mg - Labs Labs: 08/19/18 07:00 08/19/18 07:00 PT 10.6 SECONDS (9.4-12.5) 08/17/18 23:16 INR 0.93 08/17/18 23:16 APTT 26.8 Seconds (25.1-36.5) 08/17/18 23:16 Attending/Attestation - Attestation I have personally seen and examined this patient.: Yes I have fully participated in the care of the patient.: Yes I have reviewed all pertinent clinical information, including history, physical exam and plan: Yes Notes (Text): This is an addendum to GI followup report dictated by the Medical Typist. The patient was seen and evaluated earlier. Medical records, lab studies, imagings were reviewed. Last 24 hours events reviewed. Agreed with the above treatment plan as outlined in Medical Typist 's notes with the addition of the following HIDA scan was reviewed Continue antibiotics Plan for surgery Plavix now on hold 08/19/18 23:38
--- NOTE | 2018-08-19 09:20 | CP.PCM.PN ---
Subjective - Date & Time of Evaluation Date of Evaluation: 08/19/18 Time of Evaluation: 06:50 - Subjective Subjective: Awake, alert, complaining of abdominal pain Reason for consultation and follow up: Cardiac evaluation and clearance for possible cholecystectomy, history of coronary artery disease post stents 10/2017, on Plavix and Aspirin. Seen and examined by me and Dr. Mcelroy Objective - Vital Signs/Intake and Output Vital Signs (last 24 hours): Temp Pulse Resp BP Pulse Ox 98.9 F 92 H 18 142/78 92 L 08/19/18 06:00 08/19/18 06:00 08/19/18 06:00 08/19/18 06:00 08/19/18 06:00 Intake and Output: 08/19/18 08/19/18 06:59 18:59 Intake Total 1200 Balance 1200 - Medications Medications: Current Medications Enoxaparin Sodium (Lovenox) 40 mg SC DAILY [facility]; Protocol Hydromorphone HCl (Dilaudid) 1 mg IVP Q4H PRN PRN Reason: Pain, severe (8-10) Last Admin: 08/19/18 06:33 Dose: 1 mg Metronidazole (Flagyl) 500 mg in 100 mls @ 100 mls/hr IVPB Q8 [facility]; Protocol Last Admin: 08/19/18 06:32 Dose: 100 mls/hr Ceftriaxone Sodium (Rocephin 1 Gram Ivpb) 1 gm in 100 mls @ 100 mls/hr IVPB DAILY [facility]; Protocol Lactated Ringer's (Lactated Ringer's) 1,000 mls @ 100 mls/hr IV .Q10H [facility] Last Admin: 08/19/18 02:00 Dose: 100 mls/hr Non-Formulary Medication (Metoprolol Succinate [Kapspargo Sprinkle]) 25 mg PO DAILY [facility] Last Admin: 08/18/18 13:09 Dose: Not Given Ondansetron HCl (Zofran Inj) 4 mg IVP Q4H PRN PRN Reason: Nausea/Vomiting Last Admin: 08/18/18 12:41 Dose: 4 mg Pantoprazole Sodium (Protonix Inj) 40 mg IVP DAILY [facility] - Labs Labs: 08/19/18 07:00 08/19/18 07:00 PT 10.6 SECONDS (9.4-12.5) 08/17/18 23:16 INR 0.93 08/17/18 23:16 APTT 26.8 Seconds (25.1-36.5) 08/17/18 23:16 - Constitutional Appears: Non-toxic, No Acute Distress - Head Exam Head Exam: NORMAL INSPECTION, NORMOCEPHALIC - Eye Exam Eye Exam: Normal appearance Pupil Exam: NORMAL ACCOMODATION - ENT Exam ENT Exam: Mucous Membranes Moist, Normal Exam - Respiratory Exam Respiratory Exam: Clear to Ausculation Bilateral, NORMAL BREATHING PATTERN - Cardiovascular Exam Cardiovascular Exam: +S1, +S2 - GI/Abdominal Exam GI & Abdominal Exam: Soft, Normal Bowel Sounds Additional comments: abdominal pain - Extremities Exam Extremities Exam: Full ROM, Normal Capillary Refill - Neurological Exam Neurological Exam: Alert, Awake, Oriented x3 - Psychiatric Exam Psychiatric exam: Normal Affect, Normal Mood - Skin Skin Exam: Dry, Normal Color, Warm Assessment and Plan - Assessment and Plan (Free Text) Assessment: A 82 year old female who came in to the ER due to abdominal pain associated with nausea and vomiting. Admitted for cholelithiasis. History of hypertension, hyperlipidemia, coronary artery disease, post cardiac stent of proximal LAD and proximal circumflex 10/2017. On Plavix and Aspirin. Cardiology consult was called for risk stratification and clearance for possible cholecystectomy. Denies chest pain or shortness of breath. Cleared with moderate risk considering co-morbidities from cardiac standpoint. Patient on Plavix and Aspirin. Last dose was last Thursday. Consider to be off Plavix at least 5 days prior to surgery. Dr. Mcelroy discussed with surgery, cholecystectomy scheduled on Thursday. Plan: Complaining of abdominal pain, PRN medication given by payroll benefits clerk status table Cholecystectomy scheduled on Thursday Cleared for surgery from cardiac standpoint Off Plavix and Aspirin Heart rate and blood pressure stable Will resume Norvasc and Lopressor, Lisinopril (home meds) Continue current treatment Pain management Continue IV antibiotics as ordered Will follow up Plan and treatment discussed with Dr. Mcelroy
[2018-08-19 10:15] LABS: BAND 2 % (0-2); LYMPHOCYTE 23 % (22.0-35.0); METAMYELOCYTE 1 %; MONOCYTE 4 % (1.0-6.0); NEUTROPHIL 70 % (50.0-70.0); PLATELET ESTIMATE NORMAL (NORMAL)
[2018-08-19] MEDS: Enoxaparin 40 mg Syringe SC SCH (10:43)
[2018-08-19] MEDS: cefTRIAXone 1 gm 1 GM/100 ML BAG IVPB SCH (10:44)
--- NOTE | 2018-08-19 10:46 | CP.PCM.PN ---
<Victor M Martinez - Last Filed: 08/19/18 10:42> Subjective - Date & Time of Evaluation Date of Evaluation: 08/19/18 Time of Evaluation: 10:43 - Subjective Subjective: Surgery Pt seen and examined. No acute events. Denies fever. Pain controlled. Seen by steel placer. Cleared for surgery. Objective - Vital Signs/Intake and Output Vital Signs (last 24 hours): Temp Pulse Resp BP Pulse Ox 98.9 F 92 H 18 142/78 92 L 08/19/18 06:00 08/19/18 06:00 08/19/18 06:00 08/19/18 06:00 08/19/18 06:00 Intake and Output: 08/19/18 08/19/18 06:59 18:59 Intake Total 1200 Balance 1200 - Medications Medications: Current Medications Amlodipine Besylate (Norvasc) 5 mg PO DAILY [facility] Enoxaparin Sodium (Lovenox) 40 mg SC DAILY [facility]; Protocol Hydromorphone HCl (Dilaudid) 1 mg IVP Q4H PRN PRN Reason: Pain, severe (8-10) Last Admin: 08/19/18 06:33 Dose: 1 mg Metronidazole (Flagyl) 500 mg in 100 mls @ 100 mls/hr IVPB Q8 [facility]; Protocol Last Admin: 08/19/18 06:32 Dose: 100 mls/hr Ceftriaxone Sodium (Rocephin 1 Gram Ivpb) 1 gm in 100 mls @ 100 mls/hr IVPB DAILY [facility] [place]; Protocol Lactated Ringer's (Lactated Ringer's) 1,000 mls @ 100 mls/hr IV .Q10H [facility] [place] Last Admin: 08/19/18 02:00 Dose: 100 mls/hr Lisinopril (Zestril) 5 mg PO DAILY [facility] [place] Metoprolol Tartrate (Lopressor) 25 mg PO BRKDIN [facility] Non-Formulary Medication (Metoprolol Succinate [Kapspargo Sprinkle]) 25 mg PO DAILY [facility] [place] Last Admin: 08/18/18 13:09 Dose: Not Given Ondansetron HCl (Zofran Inj) 4 mg IVP Q4H PRN PRN Reason: Nausea/Vomiting Last Admin: 08/18/18 12:41 Dose: 4 mg Pantoprazole Sodium (Protonix Inj) 40 mg IVP DAILY [facility] [place] - Labs Labs: 08/19/18 07:00 08/19/18 07:00 PT 10.6 SECONDS (9.4-12.5) 08/17/18 23:16 INR 0.93 08/17/18 23:16 APTT 26.8 Seconds (25.1-36.5) 08/17/18 23:16 - Constitutional Appears: Non-toxic - Head Exam Head Exam: ATRAUMATIC, NORMAL INSPECTION, NORMOCEPHALIC - Eye Exam Eye Exam: EOMI, Normal appearance, PERRL Pupil Exam: NORMAL ACCOMODATION, PERRL - ENT Exam ENT Exam: Mucous Membranes Moist, Normal Exam - Neck Exam Neck Exam: Normal Inspection - Respiratory Exam Respiratory Exam: NORMAL BREATHING PATTERN - Cardiovascular Exam Cardiovascular Exam: REGULAR RHYTHM - GI/Abdominal Exam GI & Abdominal Exam: Soft, Tenderness. absent: Distended, Firm, Guarding, Rigid, Pulsatile Mass, Rebound - Extremities Exam Extremities Exam: Full ROM, Normal Capillary Refill, Normal Inspection. absent: Joint Swelling, Pedal Edema - Back Exam Back Exam: NORMAL INSPECTION - Neurological Exam Neurological Exam: Alert, Awake, CN II-XII Intact, Normal Gait, Oriented x3 - Psychiatric Exam Psychiatric exam: Normal Affect, Normal Mood - Skin Skin Exam: Dry, Intact, Normal Color, Warm Assessment and Plan - Assessment and Plan (Free Text) Assessment: Patient is a 82 year old female with past medical history choledocholithiasis, cholelithiasis, HTN, CAD s/p 2 stents presenting with chief complaint of abdominal pain. Leukocytosis US: gallstone, thicken wall HIDA gall bladder non visualized. Plan: - neydaepashly, nova - LR @ 100 ccs/hr - Possible OR Thursday after being off of Plavix for 5 days -Cleared for surgery by steel placer - further management per primary team DW Dr. Alex <Tree Zheng - Last Filed: 08/22/18 22:57> Objective - Vital Signs/Intake and Output Vital Signs (last 24 hours): Temp Pulse Resp BP Pulse Ox 98.5 F 83 18 141/79 97 08/22/18 22:00 08/22/18 22:00 08/22/18 22:00 08/22/18 22:00 08/22/18 22:00 Intake and Output: 08/22/18 08/23/18 18:59 06:59 Intake Total 120 Balance 120 - Medications Medications: Current Medications Amlodipine Besylate (Norvasc) 5 mg PO DAILY [facility] Last Admin: 08/22/18 09:56 Dose: 5 mg Enoxaparin Sodium (Lovenox) 40 mg SC DAILY [facility]; Protocol Last Admin: 08/22/18 09:52 Dose: 40 mg Hydromorphone HCl (Dilaudid) 1 mg IVP Q4H PRN PRN Reason: Pain, severe (8-10) Last Admin: 08/22/18 13:00 Dose: 1 mg Metronidazole (Flagyl) 500 mg in 100 mls @ 100 mls/hr IVPB Q8 [facility] [place]; Protocol Last Admin: 08/22/18 21:45 Dose: 100 mls/hr Ceftriaxone Sodium (Rocephin 1 Gram Ivpb) 1 gm in 100 mls @ 100 mls/hr IVPB DAILY [facility] [place]; Protocol Last Admin: 08/22/18 09:53 Dose: 100 mls/hr Levalbuterol HCl (Xopenex) 1.25 mg IH [id number] [facility] [place] Last Admin: 08/22/18 21:10 Dose: 1.25 mg Metoprolol Tartrate (Lopressor) 25 mg PO BRKDIN [facility] [place] Last Admin: 08/22/18 16:53 Dose: 25 mg Ondansetron HCl (Zofran Inj) 4 mg IVP Q4H PRN PRN Reason: Nausea/Vomiting Last Admin: 08/18/18 12:41 Dose: 4 mg Pantoprazole Sodium (Protonix Inj) 40 mg IVP DAILY [facility] [place] Last Admin: 08/22/18 09:53 Dose: 40 mg - Labs Labs: 08/22/18 08:27 08/22/18 08:27 PT 10.6 SECONDS (9.4-12.5) 08/17/18 23:16 INR 0.93 08/17/18 23:16 APTT 26.8 Seconds (25.1-36.5) 08/17/18 23:16 Assessment and Plan - Assessment and Plan (Free Text) Plan: Patient was seen, examined and evaluated by me. I agree with resident's assessment and plan.
--- NOTE | 2018-08-19 12:19 | CP.PCM.PCO ---
Physician Communication Note - Physician Communication Note Physician Communication Note: OR Mon. Plavix on hold
--- NOTE | 2018-08-19 14:51 | PN ---
DATE: 08/19/2018 SUBJECTIVE: The patient is 82 years old, seen and examined, lying in bed, still has right upper quadrant discomfort. No nausea or vomiting. PHYSICAL EXAMINATION VITAL SIGNS: She is afebrile. Pulse 97, respirations 18, blood pressure 142/78. LUNGS: Bilateral fair airflow. No rhonchi or crackles. HEART: S1 and S2 audible. ABDOMEN: Soft, right upper quadrant palpable discomfort. NEUROLOGIC: She is awake, alert, oriented, communicative. Moves all extremities. LABORATORY DATA: WBC is 25.9, hemoglobin 12, hematocrit 37, platelets 208. Chemistry: Sodium 137, potassium 3.9, chloride 106, CO2 of 27, BUN 11, creatinine 0.5, blood sugar 119. LFTs are within normal limits. Blood cultures are negative. ASSESSMENT AND PLAN 1. Acute cholecystitis. 2. Leukocytosis. 3. History of coronary artery disease, status post angioplasty of left anterior descending artery and circumflex. 4. Hypertension. 5. Hyperlipidemia. PLAN: We will continue the patient on metronidazole. The patient is on IV fluids. She is on clear liquid. She is on DVT prophylaxis. She is on IV Rocephin. We will follow up her CBC and CMP in a.m. Since the patient was on Plavix, been hold and surgery is planned for . Lillian Gan MD
[2018-08-20] MEDS: Lactated Ringer's 1,000 ML IV SCH ×2 (03:30→17:36)
[2018-08-20] MEDS: metroNIDAZOLE IV 500 mg/100 ml 500 MG/100 ML BAG IVPB SCH ×3 (05:30→22:08)
--- NOTE | 2018-08-20 07:19 | CP.PCM.PN ---
Subjective - Date & Time of Evaluation Date of Evaluation: 08/20/18 Time of Evaluation: 06:35 - Subjective Subjective: Awake, alert, no distress, lying in bed Reason for consultation and follow up: Cardiac evaluation and clearance for possible cholecystectomy, history of coronary artery disease post stents 10/2017, on Plavix and Aspirin. Seen and examined by me and Dr. Mcelroy Objective - Vital Signs/Intake and Output Vital Signs (last 24 hours): Temp Pulse Resp BP Pulse Ox 98.1 F 96 H 20 131/72 92 L 08/19/18 14:00 08/19/18 18:16 08/19/18 14:00 08/19/18 18:16 08/19/18 14:00 Intake and Output: 08/20/18 08/20/18 06:59 18:59 Intake Total 180 Balance 180 - Medications Medications: Current Medications Amlodipine Besylate (Norvasc) 5 mg PO DAILY [facility] Last Admin: 08/19/18 10:44 Dose: 5 mg Enoxaparin Sodium (Lovenox) 40 mg SC DAILY [facility]; Protocol Last Admin: 08/19/18 10:43 Dose: 40 mg Hydromorphone HCl (Dilaudid) 1 mg IVP Q4H PRN PRN Reason: Pain, severe (8-10) Last Admin: 08/19/18 23:51 Dose: 1 mg Metronidazole (Flagyl) 500 mg in 100 mls @ 100 mls/hr IVPB Q8 [facility]; Protocol Last Admin: 08/19/18 22:33 Dose: 100 mls/hr Ceftriaxone Sodium (Rocephin 1 Gram Ivpb) 1 gm in 100 mls @ 100 mls/hr IVPB DAILY [facility]; Protocol Last Admin: 08/19/18 10:44 Dose: 100 mls/hr Lactated Ringer's (Lactated Ringer's) 1,000 mls @ 100 mls/hr IV .Q10H [facility] Last Admin: 08/20/18 03:30 Dose: 100 mls/hr Lisinopril (Zestril) 5 mg PO DAILY [facility] Last Admin: 08/19/18 10:45 Dose: 5 mg Metoprolol Tartrate (Lopressor) 25 mg PO BRKDIN [facility] Last Admin: 08/19/18 18:16 Dose: 25 mg Non-Formulary Medication (Metoprolol Succinate [Kapspargo Sprinkle]) 25 mg PO DAILY [facility] Last Admin: 08/19/18 10:43 Dose: Not Given Ondansetron HCl (Zofran Inj) 4 mg IVP Q4H PRN PRN Reason: Nausea/Vomiting Last Admin: 08/18/18 12:41 Dose: 4 mg Pantoprazole Sodium (Protonix Inj) 40 mg IVP DAILY [facility] Last Admin: 08/19/18 10:44 Dose: 40 mg - Labs Labs: 08/19/18 07:00 08/19/18 07:00 PT 10.6 SECONDS (9.4-12.5) 08/17/18 23:16 INR 0.93 08/17/18 23:16 APTT 26.8 Seconds (25.1-36.5) 08/17/18 23:16 - Constitutional Appears: Non-toxic, No Acute Distress - Head Exam Head Exam: NORMAL INSPECTION, NORMOCEPHALIC - Eye Exam Eye Exam: Normal appearance Pupil Exam: NORMAL ACCOMODATION - ENT Exam ENT Exam: Mucous Membranes Moist, Normal Exam - Respiratory Exam Respiratory Exam: Clear to Ausculation Bilateral, NORMAL BREATHING PATTERN - Cardiovascular Exam Cardiovascular Exam: +S1, +S2 - GI/Abdominal Exam GI & Abdominal Exam: Soft, Normal Bowel Sounds - Extremities Exam Extremities Exam: Full ROM, Normal Capillary Refill - Neurological Exam Neurological Exam: Alert, Awake, Oriented x3 - Psychiatric Exam Psychiatric exam: Normal Affect, Normal Mood - Skin Skin Exam: Dry, Normal Color, Warm Assessment and Plan - Assessment and Plan (Free Text) Assessment: A 82 year old female who came in to the ER due to abdominal pain associated with nausea and vomiting. Admitted for cholelithiasis. History of hypertension, hyperlipidemia, coronary artery disease, post cardiac stent of proximal LAD and proximal circumflex 10/2017. On Plavix and Aspirin. Cardiology consult was called for risk stratification and clearance for possible cholecystectomy. Denies chest pain or shortness of breath. Cleared with moderate risk considering co-morbidities from cardiac standpoint. Patient on Plavix and Aspirin. Last dose was last Thursday. Plavix and Aspirin on hold for at least 5 days. For Cholecystectomy on Thursday. Plan: No distress, denies chest pain For Cholecystectomy on Thursday. Plavix and Aspirin on hold for at least 5 days. Cardiac status table Heart rate and blood pressure stable On Norvasc 5 mg daily, Lovenox 40 mg daily, Lisinopril 5 mg daily Continue current treatment Dilaudid PRN for Pain management Continue IV antibiotics as ordered Will follow up Plan and treatment discussed with Dr. Mcelroy
[2018-08-20 07:24] LABS: BASO # 0.02 K/mm3 (0.0-2.0); BASO % 0.1 % (0.0-3.0); GRAN # 16.92 (1.4-6.5); GRAN % 62.9 % (50.0-68.0); HEMOGLOBIN 12.9 g/dL (12.0-16.0); LYMPH # 8.2 (1.2-3.4); LYMPH % 30.6 % (22.0-35.0); MEAN CORPUSCULAR HEMOGLOBIN 29.9 pg (25.0-35.0); MEAN CORPUSCULAR HGB CONC 33.2 g/dl (31.0-37.0); MEAN PLATELET VOLUME 9.5 fl (7.0-11.0); MONO # 1.7 (0.1-0.6); MONO % 6.4 % (1.0-6.0); RBC 4.32 10^6/uL (3.5-6.1); RED CELL DISTRIBUTION WIDTH 13.4 % (11.5-14.5)
[2018-08-20 07:37] LABS: WHITE BLOOD COUNT 26.9 10^3/uL (4.5-11.0)
[2018-08-20 07:41] LABS: ALB/GLOB RATIO 1.2 (1.1-1.8); ALBUMIN 3.6 g/dL (3.0-4.8); ALT/SGPT 41 U/L (7-56); AST/SGOT 39 U/L (14-36); BLOOD UREA NITROGEN 11 mg/dL (7-21); CALCIUM 8.8 mg/dL (8.4-10.5); GFR NON-AFRICAN AMERICAN > 60
--- NOTE | 2018-08-20 08:07 | PN ---
DATE: 08/19/2018 LOCATION: The patient is in room 577, bed 2. A detailed progress note has been already written by Merna Jeffries. This is an additional note. SUBJECTIVE: The patient is lying comfortably in bed without chest pain, shortness of breath, or palpitation. The patient is found to have cholecystitis and we have been requested to consult for cardiac risk stratification with possible surgery for gallbladder. The patient has a history of putting a drug-eluting stent in the proximal LAD and proximal circumflex in 10/2017. The patient also noted to have hypertension and hyperlipidemia. OBJECTIVE: LUNGS: Clear. CARDIOVASCULAR: S1 and S2. ABDOMEN: Soft, bowel sounds normal. EXTREMITIES: No clubbing, no cyanosis. DIAGNOSES: Possible cholecystitis, coronary artery disease, history of stent insertion in left anterior descending and circumflex in 10/2017, hyperlipidemia, and hypertension. PLAN: Clinically, cardiac state is stable and the patient can go for a cholecystectomy if needed as moderate risk. The patient's Plavix and aspirin, which the patient was taking at home after the time of admission to the hospital, had been put on hold. The patient is getting prophylaxis with Lovenox 40 mg subcutaneously daily for prophylaxis of thrombophlebitis. The patient is on metronidazole 500 mg IV every 8 hours, metoprolol 25 b.i.d., amlodipine 5 daily, Protonix 40 IV daily, and lisinopril 5 mg daily. We will continue present therapy. We will follow with you. Servando Tobin MD
--- NOTE | 2018-08-20 08:54 | CP.PCM.PN ---
<Marcello Coffmann - Last Filed: 08/20/18 08:51> Subjective - Date & Time of Evaluation Date of Evaluation: 08/20/18 Time of Evaluation: 08:51 - Subjective Subjective: Surgery note- Dr. Zheng Pt seen and examined. No acute events. Denies fever. Pain controlled. Seen by correctional officer captain. Cleared for surgery. hold ASA and PLVX Objective - Vital Signs/Intake and Output Vital Signs (last 24 hours): Temp Pulse Resp BP Pulse Ox 98.4 F 94 H 18 138/75 96 08/20/18 06:00 08/20/18 08:36 08/20/18 06:00 08/20/18 08:36 08/20/18 06:00 Intake and Output: 08/20/18 08/20/18 06:59 18:59 Intake Total 1380 Balance 1380 - Medications Medications: Current Medications Amlodipine Besylate (Norvasc) 5 mg PO DAILY [facility] Last Admin: 08/19/18 10:44 Dose: 5 mg Enoxaparin Sodium (Lovenox) 40 mg SC DAILY [facility]; Protocol Last Admin: 08/19/18 10:43 Dose: 40 mg Hydromorphone HCl (Dilaudid) 1 mg IVP Q4H PRN PRN Reason: Pain, severe (8-10) Last Admin: 08/19/18 23:51 Dose: 1 mg Metronidazole (Flagyl) 500 mg in 100 mls @ 100 mls/hr IVPB Q8 [facility]; Protocol Last Admin: 08/19/18 22:33 Dose: 100 mls/hr Ceftriaxone Sodium (Rocephin 1 Gram Ivpb) 1 gm in 100 mls @ 100 mls/hr IVPB DAILY [facility]; Protocol Last Admin: 08/19/18 10:44 Dose: 100 mls/hr Lactated Ringer's (Lactated Ringer's) 1,000 mls @ 100 mls/hr IV .Q10H [facility] Last Admin: 08/20/18 03:30 Dose: 100 mls/hr Lisinopril (Zestril) 5 mg PO DAILY [facility] Last Admin: 08/19/18 10:45 Dose: 5 mg Metoprolol Tartrate (Lopressor) 25 mg PO BRKDIN [facility] Last Admin: 08/20/18 08:36 Dose: 25 mg Non-Formulary Medication (Metoprolol Succinate [Kapspargo Sprinkle]) 25 mg PO DAILY [facility] Last Admin: 08/19/18 10:43 Dose: Not Given Ondansetron HCl (Zofran Inj) 4 mg IVP Q4H PRN PRN Reason: Nausea/Vomiting Last Admin: 08/18/18 12:41 Dose: 4 mg Pantoprazole Sodium (Protonix Inj) 40 mg IVP DAILY [facility] Last Admin: 08/19/18 10:44 Dose: 40 mg - Labs Labs: 08/20/18 07:00 08/20/18 07:00 PT 10.6 SECONDS (9.4-12.5) 08/17/18 23:16 INR 0.93 08/17/18 23:16 APTT 26.8 Seconds (25.1-36.5) 08/17/18 23:16 - Constitutional Appears: Non-toxic, In Acute Distress - Head Exam Head Exam: ATRAUMATIC - Eye Exam Eye Exam: EOMI. absent: Scleral icterus - ENT Exam ENT Exam: Mucous Membranes Moist - Respiratory Exam Respiratory Exam: NORMAL BREATHING PATTERN. absent: Accessory Muscle Use, Respiratory Distress - Cardiovascular Exam Cardiovascular Exam: REGULAR RHYTHM. absent: Bradycardia, Tachycardia - GI/Abdominal Exam GI & Abdominal Exam: Soft, Tenderness (tenderness in RUQ). 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 (positive) Plan: - c/w IVF and Abx - Possible OR Thursday or Thursday after being off of Plavix for 5 days - Cleared for surgery by correctional officer captain - further management per primary team -further recs per Dr. Abi Coffman PGY2 <Tree Zheng - Last Filed: 08/22/18 22:56> Objective - Vital Signs/Intake and Output Vital Signs (last 24 hours): Temp Pulse Resp BP Pulse Ox 98.5 F 83 18 141/79 97 08/22/18 22:00 08/22/18 22:00 08/22/18 22:00 08/22/18 22:00 08/22/18 22:00 Intake and Output: 08/22/18 08/23/18 18:59 06:59 Intake Total 120 Balance 120 - Medications Medications: Current Medications Amlodipine Besylate (Norvasc) 5 mg PO DAILY [facility] Last Admin: 08/22/18 09:56 Dose: 5 mg Enoxaparin Sodium (Lovenox) 40 mg SC DAILY [facility]; Protocol Last Admin: 08/22/18 09:52 Dose: 40 mg Hydromorphone HCl (Dilaudid) 1 mg IVP Q4H PRN PRN Reason: Pain, severe (8-10) Last Admin: 08/22/18 13:00 Dose: 1 mg Metronidazole (Flagyl) 500 mg in 100 mls @ 100 mls/hr IVPB Q8 [facility]; Protocol Last Admin: 08/22/18 21:45 Dose: 100 mls/hr Ceftriaxone Sodium (Rocephin 1 Gram Ivpb) 1 gm in 100 mls @ 100 mls/hr IVPB DAILY [facility]; Protocol Last Admin: 08/22/18 09:53 Dose: 100 mls/hr Levalbuterol HCl (Xopenex) 1.25 mg IH [id number] [facility] Last Admin: 08/22/18 21:10 Dose: 1.25 mg Metoprolol Tartrate (Lopressor) 25 mg PO BRKDIN [facility] Last Admin: 08/22/18 16:53 Dose: 25 mg Ondansetron HCl (Zofran Inj) 4 mg IVP Q4H PRN PRN Reason: Nausea/Vomiting Last Admin: 08/18/18 12:41 Dose: 4 mg Pantoprazole Sodium (Protonix Inj) 40 mg IVP DAILY [facility] Last Admin: 08/22/18 09:53 Dose: 40 mg - Labs Labs: 08/22/18 08:27 08/22/18 08:27 PT 10.6 SECONDS (9.4-12.5) 08/17/18 23:16 INR 0.93 08/17/18 23:16 APTT 26.8 Seconds (25.1-36.5) 08/17/18 23:16 Assessment and Plan - Assessment and Plan (Free Text) Plan: Patient was seen, examined and evaluated by me. I agree with resident's assessment and plan.
[2018-08-20] MEDS: cefTRIAXone 1 gm 1 GM/100 ML BAG IVPB SCH (10:11)
[2018-08-20] MEDS: Enoxaparin 40 mg Syringe SC SCH (10:11)
[2018-08-20] MEDS: HYDROmorphone 1 mg/ml ISec IVP PRN ×2 (10:25→17:36)
--- NOTE | 2018-08-20 13:13 | CP.PCM.PN ---
Subjective - Date & Time of Evaluation Date of Evaluation: 08/20/18 Time of Evaluation: 13:10 - Subjective Subjective: GI Progress Note for Dr. Red Patient seen and examined at bedside. No acute overnight events. Patient states that abdominal pain is still present and has not had a bowel movement. Patient denies CP, SOB, fever, chills, CHUN, or dizziness. Objective - Vital Signs/Intake and Output Vital Signs (last 24 hours): Temp Pulse Resp BP Pulse Ox 98.4 F 94 H 18 138/75 96 08/20/18 06:00 08/20/18 08:36 08/20/18 06:00 08/20/18 08:36 08/20/18 06:00 Intake and Output: 08/20/18 08/20/18 06:59 18:59 Intake Total 1380 Balance 1380 - Medications Medications: Current Medications Amlodipine Besylate (Norvasc) 5 mg PO DAILY [facility] Last Admin: 08/20/18 10:12 Dose: 5 mg Enoxaparin Sodium (Lovenox) 40 mg SC DAILY [facility]; Protocol Last Admin: 08/20/18 10:11 Dose: 40 mg Hydromorphone HCl (Dilaudid) 1 mg IVP Q4H PRN PRN Reason: Pain, severe (8-10) Last Admin: 08/20/18 10:25 Dose: 1 mg Metronidazole (Flagyl) 500 mg in 100 mls @ 100 mls/hr IVPB Q8 [facility]; Protocol Last Admin: 08/20/18 13:07 Dose: 100 mls/hr Ceftriaxone Sodium (Rocephin 1 Gram Ivpb) 1 gm in 100 mls @ 100 mls/hr IVPB DAILY [facility]; Protocol Last Admin: 08/20/18 10:11 Dose: 100 mls/hr Lactated Ringer's (Lactated Ringer's) 1,000 mls @ 100 mls/hr IV .Q10H [facility] Last Admin: 08/20/18 03:30 Dose: 100 mls/hr Metoprolol Tartrate (Lopressor) 25 mg PO BRKDIN [facility] Last Admin: 08/20/18 08:36 Dose: 25 mg Ondansetron HCl (Zofran Inj) 4 mg IVP Q4H PRN PRN Reason: Nausea/Vomiting Last Admin: 08/18/18 12:41 Dose: 4 mg Pantoprazole Sodium (Protonix Inj) 40 mg IVP DAILY [facility] Last Admin: 08/20/18 10:12 Dose: 40 mg - Labs Labs: 08/20/18 07:00 08/20/18 07:00 PT 10.6 SECONDS (9.4-12.5) 08/17/18 23:16 INR 0.93 08/17/18 23:16 APTT 26.8 Seconds (25.1-36.5) 08/17/18 23:16 - Constitutional Appears: No Acute Distress - Head Exam Head Exam: NORMAL INSPECTION - Eye Exam Eye Exam: Normal appearance - ENT Exam ENT Exam: Mucous Membranes Moist, Normal Exam - Respiratory Exam Respiratory Exam: Clear to Ausculation Bilateral. absent: Rales, Rhonchi, Wheezes - Cardiovascular Exam Cardiovascular Exam: RRR, +S1, +S2. absent: Gallop, Rubs, Murmur - GI/Abdominal Exam GI & Abdominal Exam: Soft, Tenderness (RUQ). absent: Distended, Guarding, Rebound - Extremities Exam Extremities Exam: Normal Inspection - Back Exam Back Exam: NORMAL INSPECTION - Neurological Exam Neurological Exam: Alert, Awake, Oriented x3 - Psychiatric Exam Psychiatric exam: Normal Affect, Normal Mood - Skin Skin Exam: Normal Color, Warm Assessment and Plan - Assessment and Plan (Free Text) Assessment: 82 yo F with PMH of HTN, CAD s/p stents, cholelithiasis/choledocolithiasis, and HLD presents to [facility] for abdominal pain. Patient was found to have large impacted gallstone in the neck of the gallbladder on CT scan. On abdominal ultrasound large 2.4 cm gallstone was found and mild mural thickening of the gallbladder wall. HIDA scan showed obstructed cystic duct consistent with acute cholecystitis. 1. Acute cholecystitis 2. Cholelithiasis Plan: - Cont Ceftriaxone and Flagyl - Cont LR - Cont CLD - Cardio consulted - cleared for surgery - Hold DAPT - Surgery consulted - cholecystectomy planned for Thursday Patient seen and discussed in detail with Dr. Red. Alex Ardon DO PGY2
--- NOTE | 2018-08-20 13:18 | PN ---
DATE: 08/20/2018 SUBJECTIVE: The patient is 82-year-old seen and examined, still complained of left upper quadrant discomfort, states she started to have abdominal pain after she ate and she took her blood pressure medicine this morning. Otherwise, she is not in any acute distress. PHYSICAL EXAMINATION: VITAL SIGNS: She is afebrile. Pulse 94, respirations 18 and blood pressure 138/75. LUNGS: Bilateral fair airflow. No rhonchi or crackle. HEART: S1 and S2, audible. ABDOMEN: Soft. Right upper quadrant palpable discomfort. NEUROLOGICAL: She is awake, alert, oriented and communicative. EXTREMITIES: Bilateral leg, no edema. LABORATORY DATA: WBC 26.9, hemoglobin 12.9, hematocrit 38 and platelet 181. PT 10.6 and INR 0.93. Chemistry; sodium 139, potassium 4.1, chloride 103, CO2 of 29, BUN 11 and creatinine 0.6. Blood sugar of 120. ASSESSMENT: 1. Acute cholecystitis. 2. Coronary artery disease, status post angioplasty last year, she was on Plavix, has been on hold. 3. Leukocytosis. PLAN: We will continue patient on IV fluid. She is on metronidazole. She is on metoprolol. She is on DVT prophylaxis. She is on Protonix. We will continue IV Rocephin. The patient is scheduled to have cholecystectomy done Thursday since she has been on Plavix that is on hold. Lillian Gan MD
[2018-08-21] MEDS: HYDROmorphone 1 mg/ml ISec IVP PRN ×2 (03:44→14:40)
[2018-08-21] MEDS: Lactated Ringer's 1,000 ML IV SCH (05:51)
[2018-08-21] MEDS: metroNIDAZOLE IV 500 mg/100 ml 500 MG/100 ML BAG IVPB SCH ×3 (05:53→21:24)
--- NOTE | 2018-08-21 08:14 | CP.PCM.PN ---
<Victor M Martinez - Last Filed: 08/21/18 08:12> Subjective - Date & Time of Evaluation Date of Evaluation: 08/21/18 Time of Evaluation: 08:13 - Subjective Subjective: Surgery PT seen and examined. No acute events. Denies fever, nausea. Pain controlled. Tolerating diet. Objective - Vital Signs/Intake and Output Vital Signs (last 24 hours): Temp Pulse Resp BP Pulse Ox 98.4 F 88 18 138/75 96 08/20/18 06:00 08/20/18 16:37 08/20/18 06:00 08/20/18 08:36 08/20/18 06:00 Intake and Output: 08/21/18 08/21/18 06:59 18:59 Intake Total 1200 Balance 1200 - Medications Medications: Current Medications Amlodipine Besylate (Norvasc) 5 mg PO DAILY [facility] Last Admin: 08/20/18 10:12 Dose: 5 mg Enoxaparin Sodium (Lovenox) 40 mg SC DAILY [facility]; Protocol Last Admin: 08/20/18 10:11 Dose: 40 mg Hydromorphone HCl (Dilaudid) 1 mg IVP Q4H PRN PRN Reason: Pain, severe (8-10) Last Admin: 08/21/18 03:44 Dose: 1 mg Metronidazole (Flagyl) 500 mg in 100 mls @ 100 mls/hr IVPB Q8 [facility]; Protocol Last Admin: 08/21/18 05:53 Dose: 100 mls/hr Ceftriaxone Sodium (Rocephin 1 Gram Ivpb) 1 gm in 100 mls @ 100 mls/hr IVPB DAILY [facility]; Protocol Last Admin: 08/20/18 10:11 Dose: 100 mls/hr Lactated Ringer's (Lactated Ringer's) 1,000 mls @ 100 mls/hr IV .Q10H [facility] Last Admin: 08/21/18 05:51 Dose: 100 mls/hr Metoprolol Tartrate (Lopressor) 25 mg PO BRKDIN [facility] Last Admin: 08/20/18 16:37 Dose: 25 mg Ondansetron HCl (Zofran Inj) 4 mg IVP Q4H PRN PRN Reason: Nausea/Vomiting Last Admin: 08/18/18 12:41 Dose: 4 mg Pantoprazole Sodium (Protonix Inj) 40 mg IVP DAILY [facility] Last Admin: 08/20/18 10:12 Dose: 40 mg - Labs Labs: 08/20/18 07:00 08/20/18 07:00 PT 10.6 SECONDS (9.4-12.5) 08/17/18 23:16 INR 0.93 08/17/18 23:16 APTT 26.8 Seconds (25.1-36.5) 08/17/18 23:16 - Constitutional Appears: No Acute Distress - Head Exam Head Exam: ATRAUMATIC, NORMAL INSPECTION, NORMOCEPHALIC - Eye Exam Eye Exam: EOMI, Normal appearance, PERRL Pupil Exam: NORMAL ACCOMODATION, PERRL - ENT Exam ENT Exam: Mucous Membranes Moist, Normal Exam - Neck Exam Neck Exam: Normal Inspection - Respiratory Exam Respiratory Exam: NORMAL BREATHING PATTERN - Cardiovascular Exam Cardiovascular Exam: REGULAR RHYTHM - GI/Abdominal Exam GI & Abdominal Exam: Soft. 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 (positive) \ Plan: - c/w IVF and Abx - Possible OR Thursday or Thursday after being off of Plavix for 5 days - Cleared for surgery by game and fish protector - further management per primary team -further recs per Dr. Alex <Tree Zheng - Last Filed: 08/22/18 22:55> Objective - Vital Signs/Intake and Output Vital Signs (last 24 hours): Temp Pulse Resp BP Pulse Ox 98.5 F 83 18 141/79 97 08/22/18 22:00 08/22/18 22:00 08/22/18 22:00 08/22/18 22:00 08/22/18 22:00 Intake and Output: 08/22/18 08/23/18 18:59 06:59 Intake Total 120 Balance 120 - Medications Medications: Current Medications Amlodipine Besylate (Norvasc) 5 mg PO DAILY [facility] Last Admin: 08/22/18 09:56 Dose: 5 mg Enoxaparin Sodium (Lovenox) 40 mg SC DAILY [facility]; Protocol Last Admin: 08/22/18 09:52 Dose: 40 mg Hydromorphone HCl (Dilaudid) 1 mg IVP Q4H PRN PRN Reason: Pain, severe (8-10) Last Admin: 08/22/18 13:00 Dose: 1 mg Metronidazole (Flagyl) 500 mg in 100 mls @ 100 mls/hr IVPB Q8 [facility]; Protocol Last Admin: 08/22/18 21:45 Dose: 100 mls/hr Ceftriaxone Sodium (Rocephin 1 Gram Ivpb) 1 gm in 100 mls @ 100 mls/hr IVPB DAILY [facility]; Protocol Last Admin: 08/22/18 09:53 Dose: 100 mls/hr Levalbuterol HCl (Xopenex) 1.25 mg IH Q0FCAFS [facility] Last Admin: 08/22/18 21:10 Dose: 1.25 mg Metoprolol Tartrate (Lopressor) 25 mg PO BRKDIN [facility] Last Admin: 08/22/18 16:53 Dose: 25 mg Ondansetron HCl (Zofran Inj) 4 mg IVP Q4H PRN PRN Reason: Nausea/Vomiting Last Admin: 08/18/18 12:41 Dose: 4 mg Pantoprazole Sodium (Protonix Inj) 40 mg IVP DAILY [facility] Last Admin: 08/22/18 09:53 Dose: 40 mg - Labs Labs: 08/22/18 08:27 08/22/18 08:27 PT 10.6 SECONDS (9.4-12.5) 08/17/18 23:16 INR 0.93 08/17/18 23:16 APTT 26.8 Seconds (25.1-36.5) 08/17/18 23:16 Assessment and Plan - Assessment and Plan (Free Text) Plan: Patient was seen, examined and evaluated by me. I agree with resident's assessment and plan.
[2018-08-21] MEDS: Enoxaparin 40 mg Syringe SC SCH (09:57)
[2018-08-21] MEDS: cefTRIAXone 1 gm 1 GM/100 ML BAG IVPB SCH (09:57)
--- NOTE | 2018-08-21 13:52 | PN ---
DATE: 08/21/2018 SUBJECTIVE: The patient is 82 years old, seen and examined, complained of getting short of breath, was given soft food and tolerating well. No abdominal pain noted. PHYSICAL EXAMINATION: VITAL SIGNS: The patient is afebrile, pulse 88, respirations 18, blood pressure 116/67. LUNGS: Bilateral expiratory rhonchi noted. HEART: S1 and S2 audible. ABDOMEN: Soft, nontender. No rebound, no guarding. NEUROLOGIC: The patient is awake, alert, oriented, communicative, ambulatory. ASSESSMENT: 1. Acute cholecystitis. 2. Coronary artery disease, status post angioplasty last year. 3. Leukocytosis. 4. Hypertension. 5. Hyperlipidemia. PLAN: Will continue on metronidazole. Continue metoprolol. She is on DVT prophylaxis. I will give her a dose of Lasix since she was found to be wheezing after exertion, probably fluid overload. We will discontinue IV fluids since the patient is tolerating soft diet and we will make her n.p.o. again tomorrow midnight for possible surgery on Thursday. Lillian Gan MD
[2018-08-21] MEDS: Levalbuterol 1.25 MG/3 ML Inhal Soln UD IH SCH ×2 (17:54→21:15)
[2018-08-22] MEDS: Levalbuterol 1.25 MG/3 ML Inhal Soln UD IH SCH ×4 (03:15→21:10)
[2018-08-22] MEDS: metroNIDAZOLE IV 500 mg/100 ml 500 MG/100 ML BAG IVPB SCH ×3 (06:07→21:45)
[2018-08-22 08:40] LABS: BASO # 0.03 K/mm3 (0.0-2.0); BASO % 0.2 % (0.0-3.0); EOS # 0.1 (0.0-0.7); EOS % 0.7 % (1.5-5.0); GRAN # 10.64 (1.4-6.5); GRAN % 53.4 % (50.0-68.0); HEMOGLOBIN 11.4 g/dL (12.0-16.0); LYMPH # 7.7 (1.2-3.4); LYMPH % 38.6 % (22.0-35.0); MEAN CELL VOLUME 88.4 fl (80.0-105.0); MEAN CORPUSCULAR HEMOGLOBIN 28.6 pg (25.0-35.0); MEAN CORPUSCULAR HGB CONC 32.4 g/dl (31.0-37.0); MEAN PLATELET VOLUME 9.6 fl (7.0-11.0); MONO # 1.4 (0.1-0.6); MONO % 7.1 % (1.0-6.0); RBC 3.98 10^6/uL (3.5-6.1); RED CELL DISTRIBUTION WIDTH 13.6 % (11.5-14.5); WHITE BLOOD COUNT 19.9 10^3/uL (4.5-11.0)
[2018-08-22 09:23] LABS: ALB/GLOB RATIO 1.1 (1.1-1.8); ALT/SGPT 47 U/L (7-56); AST/SGOT 28 U/L (14-36); BLOOD UREA NITROGEN 11 mg/dL (7-21); CALCIUM 8.3 mg/dL (8.4-10.5); GFR NON-AFRICAN AMERICAN > 60
[2018-08-22] MEDS: Enoxaparin 40 mg Syringe SC SCH (09:52)
[2018-08-22] MEDS: cefTRIAXone 1 gm 1 GM/100 ML BAG IVPB SCH (09:53)
--- NOTE | 2018-08-22 10:29 | CP.PCM.PN ---
<Manny Jaffe - Last Filed: 08/22/18 12:11> Subjective - Date & Time of Evaluation Date of Evaluation: 08/22/18 Time of Evaluation: 10:28 - Subjective Subjective: Surgery: Dr. Zheng Pt seen and examined. Resting comfortably in bed. No acute events overnight. No complaints. Objective - Vital Signs/Intake and Output Vital Signs (last 24 hours): Temp Pulse Resp BP Pulse Ox 98.9 F 81 18 134/73 96 08/22/18 06:00 08/22/18 09:56 08/22/18 06:00 08/22/18 09:56 08/22/18 06:00 Intake and Output: 08/22/18 08/22/18 06:59 18:59 Intake Total 120 Balance 120 - Medications Medications: Current Medications Amlodipine Besylate (Norvasc) 5 mg PO DAILY [facility] Last Admin: 08/22/18 09:56 Dose: 5 mg Enoxaparin Sodium (Lovenox) 40 mg SC DAILY [facility]; Protocol Last Admin: 08/22/18 09:52 Dose: 40 mg Hydromorphone HCl (Dilaudid) 1 mg IVP Q4H PRN PRN Reason: Pain, severe (8-10) Last Admin: 08/21/18 14:40 Dose: 1 mg Metronidazole (Flagyl) 500 mg in 100 mls @ 100 mls/hr IVPB Q8 [facility]; Protocol Last Admin: 08/22/18 06:07 Dose: 100 mls/hr Ceftriaxone Sodium (Rocephin 1 Gram Ivpb) 1 gm in 100 mls @ 100 mls/hr IVPB DAILY [facility]; Protocol Last Admin: 08/22/18 09:53 Dose: 100 mls/hr Potassium Chloride (Potassium Chloride 10 Meq/100 Ml) 10 meq in 100 mls @ 50 mls/hr IVPB Q2H [facility] Stop: 08/22/18 14:14 Levalbuterol HCl (Xopenex) 1.25 mg IH [id number] [facility] Last Admin: 08/22/18 03:15 Dose: 1.25 mg Metoprolol Tartrate (Lopressor) 25 mg PO BRKDIN [facility] Last Admin: 08/22/18 08:26 Dose: 25 mg Ondansetron HCl (Zofran Inj) 4 mg IVP Q4H PRN PRN Reason: Nausea/Vomiting Last Admin: 08/18/18 12:41 Dose: 4 mg Pantoprazole Sodium (Protonix Inj) 40 mg IVP DAILY [facility] Last Admin: 08/22/18 09:53 Dose: 40 mg - Labs Labs: 08/22/18 08:27 08/22/18 08:27 PT 10.6 SECONDS (9.4-12.5) 08/17/18 23:16 INR 0.93 08/17/18 23:16 APTT 26.8 Seconds (25.1-36.5) 08/17/18 23:16 - Constitutional Appears: Non-toxic, No Acute Distress - Head Exam Head Exam: ATRAUMATIC, NORMOCEPHALIC - Eye Exam Eye Exam: EOMI - ENT Exam ENT Exam: Mucous Membranes Moist - Neck Exam Neck Exam: Full ROM - Respiratory Exam Respiratory Exam: NORMAL BREATHING PATTERN. absent: Accessory Muscle Use, Respiratory Distress - GI/Abdominal Exam GI & Abdominal Exam: Soft. absent: Distended, Firm, Guarding, Rigid, Tenderness, Rebound - Extremities Exam Extremities Exam: absent: Calf Tenderness, Pedal Edema - Neurological Exam Neurological Exam: Alert, Awake, Oriented x3 - Psychiatric Exam Psychiatric exam: Normal Affect, Normal Mood - Skin Skin Exam: Dry, Warm Assessment and Plan - Assessment and Plan (Free Text) Assessment: 82F w. cholecystitis Plan: -Low fat diet -c/w abx -continue to hold antiplatelets, will plan for OR Thursday -d/w attending [facility] PGY4 <Tree Zheng - Last Filed: 08/22/18 22:55> Objective - Vital Signs/Intake and Output Vital Signs (last 24 hours): Temp Pulse Resp BP Pulse Ox 98.5 F 83 18 141/79 97 08/22/18 22:00 08/22/18 22:00 08/22/18 22:00 08/22/18 22:00 08/22/18 22:00 Intake and Output: 08/22/18 08/23/18 18:59 06:59 Intake Total 120 Balance 120 - Medications Medications: Current Medications Amlodipine Besylate (Norvasc) 5 mg PO DAILY [facility] Last Admin: 08/22/18 09:56 Dose: 5 mg Enoxaparin Sodium (Lovenox) 40 mg SC DAILY [facility]; Protocol Last Admin: 08/22/18 09:52 Dose: 40 mg Hydromorphone HCl (Dilaudid) 1 mg IVP Q4H PRN PRN Reason: Pain, severe (8-10) Last Admin: 08/22/18 13:00 Dose: 1 mg Metronidazole (Flagyl) 500 mg in 100 mls @ 100 mls/hr IVPB Q8 [facility]; Protocol Last Admin: 08/22/18 21:45 Dose: 100 mls/hr Ceftriaxone Sodium (Rocephin 1 Gram Ivpb) 1 gm in 100 mls @ 100 mls/hr IVPB DAILY [facility]; Protocol Last Admin: 08/22/18 09:53 Dose: 100 mls/hr Levalbuterol HCl (Xopenex) 1.25 mg IH [id number] [facility] Last Admin: 08/22/18 21:10 Dose: 1.25 mg Metoprolol Tartrate (Lopressor) 25 mg PO BRKDIN [facility] Last Admin: 08/22/18 16:53 Dose: 25 mg Ondansetron HCl (Zofran Inj) 4 mg IVP Q4H PRN PRN Reason: Nausea/Vomiting Last Admin: 08/18/18 12:41 Dose: 4 mg Pantoprazole Sodium (Protonix Inj) 40 mg IVP DAILY [facility] Last Admin: 08/22/18 09:53 Dose: 40 mg - Labs Labs: 08/22/18 08:27 08/22/18 08:27 PT 10.6 SECONDS (9.4-12.5) 08/17/18 23:16 INR 0.93 08/17/18 23:16 APTT 26.8 Seconds (25.1-36.5) 08/17/18 23:16 Assessment and Plan - Assessment and Plan (Free Text) Plan: Patient was seen, examined and evaluated by me. I agree with resident's assessment and plan.
[2018-08-22] MEDS: HYDROmorphone 1 mg/ml ISec IVP PRN ×2 (13:00→23:02)
--- NOTE | 2018-08-22 20:58 | PN ---
DATE: 08/22/2018 SUBJECTIVE: The patient is 82 years old, seen and examined, doing well, minimal abdominal pain, eating and tolerating. No nausea or vomiting. No diarrhea. PHYSICAL EXAMINATION: VITAL SIGNS: She is afebrile, pulse 79, respirations 18, blood pressure 118/73. LUNGS: Bilateral fair airflow. No rhonchi or crackles. HEART: S1 and S2 audible. ABDOMEN: Soft, nontender. No rebound, no guarding. NEUROLOGIC: The patient is awake, alert, oriented, communicative, ambulatory. LABORATORY DATA: WBC is 19.9, hemoglobin 11.4, hematocrit 35.2, platelets 182. Chemistry: Sodium 140, potassium 3.1, chloride 103, CO2 of 32, BUN 11, creatinine 0.4, blood sugar 104. ASSESSMENT AND PLAN: 1. Acute cholecystitis. 2. Leukocytosis, resolving. 3. Coronary artery disease, status post angioplasty a year ago. The patient is currently off Plavix, going to be prepped for cholecystectomy on Thursday. We will continue current antibiotics. Lillian Gan MD
[2018-08-23] MEDS: Levalbuterol 1.25 MG/3 ML Inhal Soln UD IH SCH ×4 (03:10→20:25)
[2018-08-23] MEDS: metroNIDAZOLE IV 500 mg/100 ml 500 MG/100 ML BAG IVPB SCH ×3 (05:19→21:41)
[2018-08-23] MEDS: Enoxaparin 40 mg Syringe SC SCH (10:16)
[2018-08-23] MEDS: cefTRIAXone 1 gm 1 GM/100 ML BAG IVPB SCH (10:17)
--- NOTE | 2018-08-23 10:41 | CP.PCM.PN ---
<Jerald Ardon - Last Filed: 08/23/18 18:55> Subjective - Date & Time of Evaluation Date of Evaluation: 08/23/18 Time of Evaluation: 10:35 - Subjective Subjective: GI Progress Note for Dr. Red Patient was seen and examined in her armchair. No acute events over night. Patient states she still has mild RUQ pain, associated with movement, and it's well controlled with pain medication. Patient is tolerating her diet well. Patient admits to constipation,she has not had a bowel movement since 08/16/2018, normally moves her bowel every 4-5 days. Patient states the last time she was hospitalized she did not move her bowels for 10 days. Patient denies fever, chills, nausea, vomiting, diarrhea, dizziness, SOB, and chest pain. Objective - Vital Signs/Intake and Output Vital Signs (last 24 hours): Temp Pulse Resp BP Pulse Ox 98.1 F 93 H 18 141/87 94 L 08/23/18 07:00 08/23/18 10:16 08/23/18 07:00 08/23/18 10:16 08/23/18 07:00 Intake and Output: 08/23/18 08/23/18 06:59 18:59 Intake Total 240 Balance 240 - Medications Medications: Current Medications Amlodipine Besylate (Norvasc) 5 mg PO DAILY [facility] Last Admin: 08/23/18 10:16 Dose: 5 mg Enoxaparin Sodium (Lovenox) 40 mg SC DAILY [facility]; Protocol Last Admin: 08/23/18 10:16 Dose: 40 mg Hydromorphone HCl (Dilaudid) 1 mg IVP Q4H PRN PRN Reason: Pain, severe (8-10) Last Admin: 08/22/18 23:02 Dose: 1 mg Metronidazole (Flagyl) 500 mg in 100 mls @ 100 mls/hr IVPB Q8 [facility]; Protocol Last Admin: 08/23/18 05:19 Dose: 100 mls/hr Ceftriaxone Sodium (Rocephin 1 Gram Ivpb) 1 gm in 100 mls @ 100 mls/hr IVPB DAILY [facility]; Protocol Last Admin: 08/23/18 10:17 Dose: 100 mls/hr Levalbuterol HCl (Xopenex) 1.25 mg IH [id number] [facility] Last Admin: 08/23/18 08:11 Dose: 1.25 mg Metoprolol Tartrate (Lopressor) 25 mg PO BRKDIN [facility] Last Admin: 08/23/18 08:45 Dose: 25 mg Ondansetron HCl (Zofran Inj) 4 mg IVP Q4H PRN PRN Reason: Nausea/Vomiting Last Admin: 08/18/18 12:41 Dose: 4 mg Pantoprazole Sodium (Protonix Inj) 40 mg IVP DAILY [facility] Last Admin: 08/23/18 10:15 Dose: 40 mg - Labs Labs: 08/22/18 08:27 08/22/18 08:27 PT 10.6 SECONDS (9.4-12.5) 08/17/18 23:16 INR 0.93 08/17/18 23:16 APTT 26.8 Seconds (25.1-36.5) 08/17/18 23:16 - Constitutional Appears: No Acute Distress - Head Exam Head Exam: NORMAL INSPECTION - Eye Exam Eye Exam: Normal appearance - ENT Exam ENT Exam: Mucous Membranes Moist, Normal Exam - Respiratory Exam Respiratory Exam: Clear to Ausculation Bilateral. absent: Rales, Rhonchi, Wheezes - Cardiovascular Exam Cardiovascular Exam: RRR, +S1, +S2. absent: Gallop, Rubs, Murmur - GI/Abdominal Exam GI & Abdominal Exam: Soft. absent: Distended, Guarding, Tenderness, Rebound - Extremities Exam Extremities Exam: Normal Inspection - Back Exam Back Exam: NORMAL INSPECTION - Neurological Exam Neurological Exam: Alert, Awake, Oriented x3 - Psychiatric Exam Psychiatric exam: Normal Affect - Skin Skin Exam: Normal Color Assessment and Plan - Assessment and Plan (Free Text) Assessment: 82 year old female with a PMH of HTN, CAD s/p 2 drug eluding stents, cholelithiasis, and HLD presented to [facility] on 08/17/18 for abdominal pain. Per abdominal US, patient has a 2.4 cm gallstone in the neck of the gallbladder and mild mural thickening of gallbladder wall. 1. Acute cholecystitis 2. Cholelithaisis Plan: -Cholecystectomy planned for Thursday -NPO after Midnight -continue to hold DAPT -continue ceftriaxone and Metronidazole -Cleared for surgery per cardiology Patient discussed in detail with Dr. Red. Alex Ardon, DO PGY2 <Neda,Kovil V - Last Filed: 08/24/18 00:00> Objective - Vital Signs/Intake and Output Vital Signs (last 24 hours): Temp Pulse Resp BP Pulse Ox 98.2 F 80 18 128/78 96 08/23/18 22:48 08/23/18 22:48 08/23/18 22:48 08/23/18 22:48 08/23/18 22:48 - Medications Medications: Current Medications Amlodipine Besylate (Norvasc) 5 mg PO DAILY [facility] Last Admin: 08/23/18 10:16 Dose: 5 mg Enoxaparin Sodium (Lovenox) 40 mg SC DAILY [facility]; Protocol Last Admin: 08/23/18 10:16 Dose: 40 mg Hydromorphone HCl (Dilaudid) 1 mg IVP Q4H PRN PRN Reason: Pain, severe (8-10) Last Admin: 08/23/18 17:46 Dose: 1 mg Metronidazole (Flagyl) 500 mg in 100 mls @ 100 mls/hr IVPB Q8 [facility]; Protocol Last Admin: 08/23/18 21:41 Dose: 100 mls/hr Ceftriaxone Sodium (Rocephin 1 Gram Ivpb) 1 gm in 100 mls @ 100 mls/hr IVPB DAILY [facility]; Protocol Last Admin: 08/23/18 10:17 Dose: 100 mls/hr Levalbuterol HCl (Xopenex) 1.25 mg IH [id number] [facility] Last Admin: 08/23/18 20:25 Dose: 1.25 mg Metoprolol Tartrate (Lopressor) 25 mg PO BRKDIN [facility] Last Admin: 08/23/18 18:19 Dose: 25 mg Ondansetron HCl (Zofran Inj) 4 mg IVP Q4H PRN PRN Reason: Nausea/Vomiting Last Admin: 08/18/18 12:41 Dose: 4 mg Pantoprazole Sodium (Protonix Inj) 40 mg IVP DAILY [facility] Last Admin: 08/23/18 10:15 Dose: 40 mg Potassium Phos/Sodium Phos (Neutra-Phos) 1 pkt PO TID [facility] Last Admin: 08/23/18 18:19 Dose: 1 pkt - Labs Labs: 08/23/18 11:10 08/23/18 11:10 PT 10.6 SECONDS (9.4-12.5) 08/17/18 23:16 INR 0.93 08/17/18 23:16 APTT 26.8 Seconds (25.1-36.5) 08/17/18 23:16 Attending/Attestation - Attestation I have personally seen and examined this patient.: Yes I have fully participated in the care of the patient.: Yes I have reviewed all pertinent clinical information, including history, physical exam and plan: Yes Notes (Text): p 08/24/18 00:00
[2018-08-23 11:20] LABS: BASO # 0.02 K/mm3 (0.0-2.0); BASO % 0.1 % (0.0-3.0); EOS # 0.2 (0.0-0.7); EOS % 1.2 % (1.5-5.0); GRAN # 8.19 (1.4-6.5); GRAN % 49.8 % (50.0-68.0); HEMOGLOBIN 11.2 g/dL (12.0-16.0); LYMPH # 6.6 (1.2-3.4); LYMPH % 40.3 % (22.0-35.0); MEAN CELL VOLUME 89.3 fl (80.0-105.0); MEAN CORPUSCULAR HEMOGLOBIN 29.3 pg (25.0-35.0); MEAN CORPUSCULAR HGB CONC 32.8 g/dl (31.0-37.0); MEAN PLATELET VOLUME 9.8 fl (7.0-11.0); MONO # 1.4 (0.1-0.6); MONO % 8.6 % (1.0-6.0); RBC 3.82 10^6/uL (3.5-6.1); WHITE BLOOD COUNT 16.5 10^3/uL (4.5-11.0)
[2018-08-23 11:31] LABS: ALBUMIN 2.9 g/dL (3.0-4.8); ALT/SGPT 42 U/L (7-56); AST/SGOT 26 U/L (14-36); BLOOD UREA NITROGEN 9 mg/dL (7-21); CALCIUM 8.2 mg/dL (8.4-10.5); GFR NON-AFRICAN AMERICAN > 60
[2018-08-23] MEDS: HYDROmorphone 1 mg/ml ISec IVP PRN ×2 (11:52→17:46)
[2018-08-23] MEDS ORDERED: Potassium Phosphate 15 MMOLE in Sodium Chloride 0.9% 250 ML IVPB ONE (12:43)
--- NOTE | 2018-08-23 13:21 | CP.PCM.PN ---
<MerchantZach - Last Filed: 08/23/18 13:18> Subjective - Date & Time of Evaluation Date of Evaluation: 08/23/18 Time of Evaluation: 13:18 - Subjective Subjective: Surgery Progress note- Dr. Zheng Pt seen and examined. Resting comfortably in bed. no new complaints. + OOB and ambulation. Anti-coagulants held Objective - Vital Signs/Intake and Output Vital Signs (last 24 hours): Temp Pulse Resp BP Pulse Ox 98.1 F 93 H 18 141/87 94 L 08/23/18 07:00 08/23/18 10:16 08/23/18 07:00 08/23/18 10:16 08/23/18 07:00 Intake and Output: 08/23/18 08/23/18 06:59 18:59 Intake Total 240 Balance 240 - Medications Medications: Current Medications Amlodipine Besylate (Norvasc) 5 mg PO DAILY [facility] Last Admin: 08/23/18 10:16 Dose: 5 mg Enoxaparin Sodium (Lovenox) 40 mg SC DAILY [facility]; Protocol Last Admin: 08/23/18 10:16 Dose: 40 mg Hydromorphone HCl (Dilaudid) 1 mg IVP Q4H PRN PRN Reason: Pain, severe (8-10) Last Admin: 08/23/18 11:52 Dose: 1 mg Metronidazole (Flagyl) 500 mg in 100 mls @ 100 mls/hr IVPB Q8 [facility]; Protocol Last Admin: 08/23/18 05:19 Dose: 100 mls/hr Ceftriaxone Sodium (Rocephin 1 Gram Ivpb) 1 gm in 100 mls @ 100 mls/hr IVPB DAILY [facility]; Protocol Last Admin: 08/23/18 10:17 Dose: 100 mls/hr Potassium Phosphate 15 mmole/ (Sodium Chloride) 255 mls @ 42.5 mls/hr IVPB ONCE ONE Stop: 08/23/18 18:42 Levalbuterol HCl (Xopenex) 1.25 mg IH [id number] [facility] Last Admin: 08/23/18 08:11 Dose: 1.25 mg Metoprolol Tartrate (Lopressor) 25 mg PO BRKDIN [facility] Last Admin: 08/23/18 08:45 Dose: 25 mg Ondansetron HCl (Zofran Inj) 4 mg IVP Q4H PRN PRN Reason: Nausea/Vomiting Last Admin: 08/18/18 12:41 Dose: 4 mg Pantoprazole Sodium (Protonix Inj) 40 mg IVP DAILY [facility] Last Admin: 08/23/18 10:15 Dose: 40 mg Potassium Phos/Sodium Phos (Neutra-Phos) 1 pkt PO TID [facility] - Labs Labs: 08/23/18 11:10 08/23/18 11:10 PT 10.6 SECONDS (9.4-12.5) 08/17/18 23:16 INR 0.93 08/17/18 23:16 APTT 26.8 Seconds (25.1-36.5) 08/17/18 23:16 - Constitutional Appears: Non-toxic, No Acute Distress - Head Exam Head Exam: ATRAUMATIC - Eye Exam Eye Exam: EOMI. absent: Scleral icterus - ENT Exam ENT Exam: Mucous Membranes Moist - Respiratory Exam Respiratory Exam: NORMAL BREATHING PATTERN. absent: Accessory Muscle Use, Respiratory Distress - Cardiovascular Exam Cardiovascular Exam: REGULAR RHYTHM. absent: Bradycardia, Tachycardia - GI/Abdominal Exam GI & Abdominal Exam: Soft, Tenderness (RUQ tenderness). absent: Distended, Firm, Guarding, Rigid - Neurological Exam Neurological Exam: Alert, Awake, Oriented x3 - Psychiatric Exam Psychiatric exam: Normal Affect - Skin Skin Exam: Intact, Warm Assessment and Plan - Assessment and Plan (Free Text) Assessment: 82F pmhx of CLL w. cholecystitis Plan: -Plan for OR tomorrow Thursday -c/w abx -NPO after MN -continue to hold antiplatelets, -d/w Dr. Foy surgical attending [facility] PGY2 <Tree Zheng - Last Filed: 08/25/18 10:48> Objective - Vital Signs/Intake and Output Vital Signs (last 24 hours): Temp Pulse Resp BP Pulse Ox 97.6 F 92 H 18 107/70 95 08/25/18 07:00 08/25/18 07:00 08/25/18 07:00 08/25/18 07:00 08/25/18 07:00 Intake and Output: 08/25/18 08/25/18 06:59 18:59 Intake Total 120 Balance 120 - Medications Medications: Current Medications Amlodipine Besylate (Norvasc) 5 mg PO DAILY [facility] Last Admin: 08/24/18 10:00 Dose: Not Given Aspirin (Ecotrin) 81 mg PO DAILY [facility] Clopidogrel Bisulfate (Plavix) 75 mg PO DAILY [facility] Enoxaparin Sodium (Lovenox) 40 mg SC DAILY [facility]; Protocol Last Admin: 08/23/18 10:16 Dose: 40 mg Enoxaparin Sodium (Lovenox) 40 mg SC DAILY [facility]; Protocol Hydromorphone HCl (Dilaudid) 1 mg IVP Q4H PRN PRN Reason: Pain, severe (8-10) Last Admin: 08/25/18 02:42 Dose: 1 mg Levalbuterol HCl (Xopenex) 1.25 mg IH [id number] [facility] Last Admin: 08/25/18 07:52 Dose: 1.25 mg Metoclopramide HCl (Reglan) 10 mg IV ONCE PRN PRN Reason: Nausea/Vomiting Metoprolol Tartrate (Lopressor) 25 mg PO BRKDIN [facility] Last Admin: 08/24/18 18:45 Dose: Not Given Ondansetron HCl (Zofran Inj) 4 mg IVP Q4H PRN PRN Reason: Nausea/Vomiting Last Admin: 08/24/18 13:09 Dose: 4 mg Ondansetron HCl (Zofran Inj) 4 mg IVP ONCE PRN PRN Reason: Nausea/Vomiting Pantoprazole Sodium (Protonix Inj) 40 mg IVP DAILY [facility] Last Admin: 08/23/18 10:15 Dose: 40 mg Potassium Phos/Sodium Phos (Neutra-Phos) 1 pkt PO TID [facility] Last Admin: 08/23/18 18:19 Dose: 1 pkt - Labs Labs: 08/25/18 06:40 08/25/18 06:40 PT 13.3 SECONDS (9.4-12.5) H 08/24/18 06:20 INR 1.15 08/24/18 06:20 APTT 27.1 Seconds (25.1-36.5) 08/24/18 06:20 Assessment and Plan - Assessment and Plan (Free Text) Plan: Patient was seen, evaluated and examined by me. I agree with the assessment and plan as per the resident's note.
[2018-08-23] MEDS: Potassium & Sodium Phosphate PO SCH ×2 (14:55→18:19)
--- NOTE | 2018-08-23 16:40 | PN ---
DATE: 08/23/2018 SUBJECTIVE: The patient is an 82 years old, seen and examined, lying in bed, seems to be comfortable. No nausea or vomiting. No diarrhea. Right upper quadrant pain seem to be improving, did have good bowel movement. PHYSICAL EXAMINATION: VITAL SIGNS: The patient is afebrile, pulse 93, respirations 18, blood pressure 141/87. LUNGS: Bilateral fair airflow. No rhonchi or crackles noted. ABDOMEN: Soft. No rebound, no guarding. NEUROLOGIC: She is awake, alert, oriented, communicative. LABORATORY DATA: WBC is 16.5, hemoglobin 11.2, hematocrit 34.1, platelets 185. Chemistry; sodium 139, potassium 3.3, chloride 103, CO2 of 31, BUN 9, creatinine 0.4, blood sugar of 160, phosphorus 1.7. ASSESSMENT: 1. Acute cholecystitis. 2. Coronary artery disease, status post angioplasty, she was on Plavix, has been discontinued. PLAN: The patient is scheduled to have cholecystectomy done tomorrow. The patient's phosphorus is low. I will give Neutra-Phos supplementation. Ordered for incentive spirometry. Lillian Gan MD
--- NOTE | 2018-08-23 18:09 | PN ---
DATE: 08/23/2018 REASON FOR CONSULTATION AND FOLLOWUP: Preop evaluation, risk stratification for possible gallbladder surgery. History of CHF, status post PTCA. SUBJECTIVE: The patient denies any chest pain, shortness of breath, any palpitation. PHYSICAL EXAMINATION: VITAL SIGNS: Temperature afebrile, heart rate 93 and blood pressure 141/87. HEENT: PERRLA. Extraocular muscles intact. NECK: Supple. No carotid bruit or thyromegaly. CHEST: Clear to auscultation. ABDOMEN: Soft, mild tenderness in right upper quadrant. EXTREMITIES: Clubbing and cyanosis, negative. LABORATORY DATA: Blood workup; WBC is 16.5, hemoglobin 9.8, hematocrit 34.1, and platelet count of 185. Chemistry shows; sodium 139, potassium 3.0, chloride of 103, carbon dioxide 31, anion gap of 9, BUN 9, and creatinine 0.4. IMPRESSION: An 82-year-old female with past medical history significant for coronary artery disease, admitted with acute status post percutaneous transluminal coronary angioplasty circumflex with drug eluting stent on 10/2017, requiring OR for cholecystectomy. The patient of off Plavix more than 5 days ago. The patient is clear from Cardiology point of view to go for a surgery with whole day and Plavix and 5 days of more than 5 days which is already in 5 days. Moderate . RECOMMENDATION: Continue antibiotic as per ID. Continue DVT prophylaxis. Continue amlodipine 5 mg daily. We will put a low-dose beta lamont. We will follow with you. The patient is clear from cardiac point of view, will go for surgery as mentioned in physician communication dated 08/18/2018. We will follow with you. We will give supplement potassium. The patient's phosphorus is 1.7, we will IV phosphorus. We will repeat mag phosphate in the morning. As mentioned, the patient is clear for cholecystectomy from Cardiology point of view, on hold aspirin and Plavix more than 5 days. We will give stat potassium phosphate IV. Thank you Dr. Gan for providing us this opportunity in taking care of the patient, Dalton Davila. Servando Mcelroy MD
[2018-08-24] MEDS: Levalbuterol 1.25 MG/3 ML Inhal Soln UD IH SCH ×4 (01:45→20:13)
[2018-08-24] MEDS: HYDROmorphone 1 mg/ml ISec IVP PRN ×3 (03:02→19:23)
[2018-08-24] MEDS: metroNIDAZOLE IV 500 mg/100 ml 500 MG/100 ML BAG IVPB SCH (05:19)
[2018-08-24 06:46] LABS: INR 1.15; PARTIAL THROMBOPLASTIN TIME 27.1 Seconds (25.1-36.5); PROTHROMBIN TIME 13.3 SECONDS (9.4-12.5)
--- NOTE | 2018-08-24 06:46 | CP.PCM.PN ---
Subjective - Date & Time of Evaluation Date of Evaluation: 08/24/18 Time of Evaluation: 06:20 - Subjective Subjective: Awake, alert, no distress, denies pain Reason for consultation and follow up: Cardiac evaluation and clearance for possible cholecystectomy, history of coronary artery disease post stents 10/2017, on Plavix and Aspirin. Seen and examined by me and Dr. Mcelroy Objective - Vital Signs/Intake and Output Vital Signs (last 24 hours): Temp Pulse Resp BP Pulse Ox 98.2 F 87 18 141/81 96 08/23/18 22:48 08/24/18 06:23 08/23/18 22:48 08/24/18 06:23 08/23/18 22:48 - Medications Medications: Current Medications Amlodipine Besylate (Norvasc) 5 mg PO DAILY [facility] Last Admin: 08/23/18 10:16 Dose: 5 mg Enoxaparin Sodium (Lovenox) 40 mg SC DAILY [facility]; Protocol Last Admin: 08/23/18 10:16 Dose: 40 mg Hydromorphone HCl (Dilaudid) 1 mg IVP Q4H PRN PRN Reason: Pain, severe (8-10) Last Admin: 08/24/18 03:02 Dose: 1 mg Metronidazole (Flagyl) 500 mg in 100 mls @ 100 mls/hr IVPB Q8 [facility]; Protocol Last Admin: 08/24/18 05:19 Dose: 100 mls/hr Ceftriaxone Sodium (Rocephin 1 Gram Ivpb) 1 gm in 100 mls @ 100 mls/hr IVPB DAILY [facility]; Protocol Last Admin: 08/23/18 10:17 Dose: 100 mls/hr Levalbuterol HCl (Xopenex) 1.25 mg IH [id number] [facility] Last Admin: 08/24/18 01:45 Dose: 1.25 mg Metoprolol Tartrate (Lopressor) 25 mg PO BRKDIN [facility] Last Admin: 08/24/18 06:23 Dose: 25 mg Ondansetron HCl (Zofran Inj) 4 mg IVP Q4H PRN PRN Reason: Nausea/Vomiting Last Admin: 08/18/18 12:41 Dose: 4 mg Pantoprazole Sodium (Protonix Inj) 40 mg IVP DAILY [facility] Last Admin: 08/23/18 10:15 Dose: 40 mg Potassium Phos/Sodium Phos (Neutra-Phos) 1 pkt PO TID [facility] Last Admin: 08/23/18 18:19 Dose: 1 pkt - Labs Labs: 08/23/18 11:10 08/23/18 11:10 PT 10.6 SECONDS (9.4-12.5) 08/17/18 23:16 INR 0.93 08/17/18 23:16 APTT 26.8 Seconds (25.1-36.5) 08/17/18 23:16 - Constitutional Appears: Non-toxic, No Acute Distress - Head Exam Head Exam: NORMAL INSPECTION, NORMOCEPHALIC - Eye Exam Eye Exam: Normal appearance Pupil Exam: NORMAL ACCOMODATION - ENT Exam ENT Exam: Mucous Membranes Moist - Respiratory Exam Respiratory Exam: Clear to Ausculation Bilateral, NORMAL BREATHING PATTERN - Cardiovascular Exam Cardiovascular Exam: +S1, +S2 - GI/Abdominal Exam GI & Abdominal Exam: Soft, Normal Bowel Sounds - Extremities Exam Extremities Exam: Full ROM, Normal Capillary Refill - Neurological Exam Neurological Exam: Alert, Awake, Oriented x3 - Psychiatric Exam Psychiatric exam: Normal Affect, Normal Mood - Skin Skin Exam: Dry, Normal Color, Warm Assessment and Plan - Assessment and Plan (Free Text) Assessment: A 82 year old female who came in to the ER due to abdominal pain associated with nausea and vomiting. Admitted for cholelithiasis. History of hypertension, hyperlipidemia, coronary artery disease, post cardiac stent of proximal LAD and proximal circumflex 10/2017. On Plavix and Aspirin. Cardiology consult was called for risk stratification and clearance for possible cholecystectomy. Denies chest pain or shortness of breath. Cleared with moderate risk considering co-morbidities from cardiac standpoint. Patient on Plavix and Aspirin. Last dose was last Thursday. Plavix and Aspirin on hold for 6 days. For Cholecystectomy today. Plan: For Cholecystectomy today Cardiac status table Heart rate and blood pressure stable Plavix and Aspirin on hold for at least 6 days. Cleared for surgery On Norvasc 5 mg daily, Lovenox 40 mg daily, Lisinopril 5 mg daily Continue current treatment Dilaudid PRN for Pain management Continue IV antibiotics as ordered Will follow up postoperatively Plan and treatment discussed with Dr. Mcelroy
[2018-08-24 06:47] LABS: BASO # 0.04 K/mm3 (0.0-2.0); BASO % 0.2 % (0.0-3.0); EOS # 0.3 (0.0-0.7); EOS % 1.4 % (1.5-5.0); GRAN # 7.61 (1.4-6.5); GRAN % 40.3 % (50.0-68.0); HEMOGLOBIN 10.9 g/dL (12.0-16.0); LYMPH # 9.5 (1.2-3.4); LYMPH % 50.1 % (22.0-35.0); MEAN CORPUSCULAR HEMOGLOBIN 28.6 pg (25.0-35.0); MEAN CORPUSCULAR HGB CONC 32.2 g/dl (31.0-37.0); MEAN PLATELET VOLUME 9.4 fl (7.0-11.0); MONO # 1.5 (0.1-0.6); RBC 3.81 10^6/uL (3.5-6.1); RED CELL DISTRIBUTION WIDTH 14.1 % (11.5-14.5); WHITE BLOOD COUNT 18.9 10^3/uL (4.5-11.0)
[2018-08-24 07:21] LABS: ALB/GLOB RATIO 1.1 (1.1-1.8); ALBUMIN 2.9 g/dL (3.0-4.8); ALT/SGPT 40 U/L (7-56); AST/SGOT 28 U/L (14-36); BLOOD UREA NITROGEN 7 mg/dL (7-21); CALCIUM 8.2 mg/dL (8.4-10.5); GFR NON-AFRICAN AMERICAN > 60
[2018-08-24] MEDS ORDERED: Sevoflurane - Inhalation Anesthetic Liq (250 ml) ONE (07:34)
[2018-08-24] MEDS ORDERED: Bupivacaine 0.5% 50 ML IJ ONE ×2 (07:45→08:30)
[2018-08-24] MEDS ORDERED: Lidocaine 1% Inj (20ml) ONE (07:56)
[2018-08-24] MEDS ORDERED: Etomidate 20 mg/10ml Inj IV ONE (07:56)
[2018-08-24] MEDS ORDERED: Succinylcholine 200 mg/10 ml Inj IV ONE (07:58)
[2018-08-24] MEDS ORDERED: Rocuronium 10 mg/ml (5 ml) ONE ×2 (07:58→09:31)
[2018-08-24] MEDS ORDERED: ePHEDrine 50 mg/ml Inj ONE (08:00)
[2018-08-24] MEDS ORDERED: Iohexol 240 (50 ml) ONE (08:02)
[2018-08-24] MEDS ORDERED: CeFAZolin 1 gm in NS 100ml IVPB ONE (08:15)
[2018-08-24] MEDS ORDERED: Neostigmine Methylsulfate 3mg/3ml Syringe IV ONE (10:01)
--- NOTE | 2018-08-24 10:33 | RAD ---
Date of service: 08/24/2018 PROCEDURE: Operative cholangiogram HISTORY: R/O OBSTRUCTION COMPARISON: TECHNIQUE: Intraoperative cholangiogram. Fluoro time 27.6 sec. Cumulative dose 0.149 mGy meter squared. Six images submitted FINDINGS: There are no filling defects in the common duct. Contrast flows into the duodenum without obstruction. IMPRESSION: As above
--- NOTE | 2018-08-24 11:03 | PCM.SURG1 ---
Surgeon's Initial Post Op Note - Surgeon's Notes Surgeon: Dr. Zheng Help Desk Intern: Jessica PGY4, PGY2, Kenoyn OMS3 Type of Anesthesia: General Endo Anesthesia Administered By: Dr. Lambert Pre-Operative Diagnosis: Acute Cholecystitis Operative Findings: inflammed friable gallbladder, w/ bilious and purulent drainage around gallbladder Post-Operative Diagnosis: Gangrenous Cholecystitis Operation Performed: 1. Laparoscopic Cholecystectomy. 2. Intra-operperative Cholangiogram Specimen/Specimens Removed: 1. Bile culture and stain. 2. Gallbladder Estimated Blood Loss: EBL {In ML}: 50 Drains Used: No Drains Post-Op Condition: Good Date of Surgery/Procedure: 08/24/18 Time of Surgery/Procedure: 11:00 (Dictaion #: [id number])
[2018-08-24] MEDS ORDERED: Lactated Ringer's 1,000 ML IV SCH (11:15)
[2018-08-24 11:28] LABS: BASO # 0.03 K/mm3 (0.0-2.0); BASO % 0.2 % (0.0-3.0); EOS # 0.2 (0.0-0.7); EOS % 0.9 % (1.5-5.0); GRAN # 7.13 (1.4-6.5); GRAN % 37.4 % (50.0-68.0); HEMOGLOBIN 11.5 g/dL (12.0-16.0); LYMPH # 10.8 (1.2-3.4); LYMPH % 56.7 % (22.0-35.0); MEAN CELL VOLUME 89.4 fl (80.0-105.0); MEAN CORPUSCULAR HGB CONC 32.4 g/dl (31.0-37.0); MEAN PLATELET VOLUME 9.2 fl (7.0-11.0); MONO # 0.9 (0.1-0.6); MONO % 4.8 % (1.0-6.0); RBC 3.97 10^6/uL (3.5-6.1); RED CELL DISTRIBUTION WIDTH 14.2 % (11.5-14.5); WHITE BLOOD COUNT 19.1 10^3/uL (4.5-11.0)
[2018-08-24] MEDS: Piperacillin/Tazobact 3.375 gm 100 ML IVPB SCH ×2 (13:10→21:50)
--- NOTE | 2018-08-24 14:08 | PN ---
DATE: 08/24/2018 REASON FOR CONSULTATION: Cardiac evaluation, preop eval, risk stratification for cholecystectomy, history of coronary artery disease status post stent in 10/2017. Off aspirin and Plavix for more than five days for OR today. The patient denies any chest pain, shortness of breath, any palpitation on the way to the OR. LABORATORY DATA: Today, the labs are essentially within normal limits except the albumin is low, consistent with mild to moderate protein calorie malnutrition, it was not presented on admission. IMPRESSION: An 82-year-old female with a past medical history significant for coronary disease status post percutaneous transluminal coronary angioplasty in 10/2017 with drug-eluting stent of circumflex and left anterior descending artery, admitted due to cholecystitis. The patient is off aspirin and Plavix, cleared to go for surgery if scheduled today. RECOMMENDATIONS: Continue antibiotics, continue amlodipine, continue low-dose beta-lamont. We will follow up postop. This note is addition to the one dictated by nurse practitioner, Merna Jeffries. Thank you Dr. Gan for providing me an opportunity in taking care of the patient, Dalton Lola. Servando Mcelroy MD
--- NOTE | 2018-08-24 15:07 | OP ---
PROCEDURE DATE: 08/24/2018 PREOPERATIVE DIAGNOSIS: Acute cholecystitis. POSTOPERATIVE DIAGNOSIS: Gangrenous cholecystitis. PROCEDURES: 1. Laparoscopic cholecystectomy. 2. Intraoperative cholangiogram. SURGEON: Tree Zheng MD ASSISTANTS: Manny Jaffe DO, PGY 4, Zach Coffman DO, PGY 2 ANESTHESIA: General endotracheal tube. ANESTHESIOLOGIST: Dr. Lambert. ESTIMATED BLOOD LOSS: 50 mL. SPECIMEN: 1. Bile for gram culture stain. 2. Gallbladder. INDICATIONS FOR SURGERY: This is an 82-year-old female with past medical history significant for choledocholithiasis, cholelithiasis, hypertension, and coronary artery disease, status post 2 stents more than a year ago. The patient had severe right upper quadrant pain. After further imaging and workup, the patient was found to have acute cholecystitis. The patient was initially on aspirin and Plavix, so, the patient was kept in-house with leukocytosis being monitored and aspirin and Plavix being held for a total of 5 days. The consent was obtained for a laparoscopic possible open cholecystectomy with the patient. The patient agreed to the procedure. All consents were signed and risks of the surgery were explained. DESCRIPTION OF PROCEDURE: The patient was brought to the operating table in the supine position. General anesthesia was induced and the endotracheal tube was placed with confirmation of good end-tidal CO2. A time-out was completed verifying correct patient, procedure, site, and positioning. An OG tube was placed. The abdomen was prepped and draped in the usual sterile fashion. A skin incision was made supraumbilical and tissue was dissected down to the fascia. The fascia was elevated and the Veress needle was inserted. Proper position was confirmed by aspiration and saline and a meniscus test. Insufflation was then started. The abdomen was insufflated with carbon dioxide to a pressure of 12 mmHg. The patient tolerated insufflation well. Next, a 12-mm trocar was then inserted. Laparoscope was then inserted and the abdomen was inspected. No injuries from the initial trocar placement were noted. One additional trocar was placed subxiphoid to the right. Introduction of this 5-mm trocar was completely observed intentionally going through the falciform ligament for stability. No bleeding was noted at this time. Attention was turned to the gallbladder where dense adhesions and phlegmonous changes of the greater omentum was caked on to the gallbladder itself. The dome of the gallbladder was finally exposed, noting pretty significant inflammatory changes. The infundibulum was also grasped with atraumatic grasper and attempt for exposure of Calot's triangle. The peritoneum overlying the gallbladder infundibulum was incised. The cystic duct and cystic artery were identified and circumferentially dissected. This was a difficult dissection due to the constant oozing and the inflammatory changes of the gallbladder. A clip was placed on the cystic duct close to the neck of the gallbladder. A norma was made in the cystic duct and cholangiogram catheter was threaded. A cholangiogram was obtained and showed good flow of bile into the duodenum, and intact biliary tree, and the absence of any filling defects. The cystic duct was then doubly clipped and divided close to the gallbladder. Further dissection allowed us to expose the posterior branch of the cystic artery. This was then doubly clipped and divided. At this time, there continued to be significant oozing both in and around the gallbladder and liver bed. Extensive irrigation was used to ensure that there was no substantial bleeding. The gallbladder was then dissected from its peritoneal attachments using electrocautery spatula. During the removal of the gallbladder from the liver bed, it was noted the gallbladder was intrahepatic and was a difficult dissection and was successful. Hemostasis was checked and appropriate hemostasis was achieved on the gallbladder. There was some oozing from the liver bed. The gallbladder was placed in an EndoCatch retrieval bag and removed through the umbilical port. The gallbladder was passed off the table as specimen. The gallbladder fossa was copiously irrigated with saline and appropriate hemostasis on the liver bed was achieved using FloSeal and Avitene. There was no evidence of further bleeding from the gallbladder fossa or cystic duct or any leakage of bile from the cystic duct stump. A secondary trocar, 5-mm port, which was subxiphoid was removed under direct vision. No bleeding was noted from the trocar site. The laparoscope was withdrawn and the umbilical trocar was removed. The abdomen was allowed to collapse. The fascia of the 12-mm trocar site was closed with a [id number] 0-Vicryl suture on a UR-6. Deep dermal 3-0 Vicryl on an V20 needle was used to approximate the skin and both trocar sites were closed with 4-0 Monocryl in a running fashion. The OG tube was removed. The patient was awoken and extubated from general anesthesia and was taken to the post-anesthesia care unit in stable condition. All counts were correct at the end of the case. Dr. Zheng was present and participated in all aspects of this procedure. Zach Coffman DO Tree Zheng MD [facility]
[2018-08-24] MEDS ORDERED: HYDROmorphone 0.5 mg/0.5 ml ISec IVP STA (15:54)
--- NOTE | 2018-08-24 20:52 | PN ---
DATE: 08/24/2018 SUBJECTIVE: The patient is an 82-year-old, seen and examined, and had slight right upper quadrant discomfort. Denies any nausea or vomiting. PHYSICAL EXAMINATION: VITAL SIGNS: She is afebrile, pulse 85, respirations 16, and blood pressure 121/64. LUNGS: Bilateral fair airflow. No rhonchi or crackle. HEART: S1 and S2 audible. ABDOMEN: Soft, positive palpable discomfort. NEUROLOGIC: The patient is awake, alert, oriented, and communicative. LABORATORY DATA: WBC is 19.1, hemoglobin 11.5, hematocrit 35.5, and platelet 192. Chemistry; sodium 139, potassium 4.1, chloride 104, CO2 of 34, BUN 7, creatinine 0.4, and blood sugar of 108. ASSESSMENT: 1. Acute cholecystitis. 2. Cholelithiasis. 3. Coronary artery disease. 4. Hypertension. PLAN: Currently, the patient is on Zosyn. She is on IV Protonix. She is on IV fluids. She is on DVT prophylaxis, start her on incentive spirometry. We will follow up her electrolytes, CBC, and CMP in a.m. Lillian Gan MD
[2018-08-25] MEDS: Levalbuterol 1.25 MG/3 ML Inhal Soln UD IH SCH ×4 (01:52→19:28)
[2018-08-25] MEDS: HYDROmorphone 1 mg/ml ISec IVP PRN ×2 (02:42→11:24)
--- NOTE | 2018-08-25 06:59 | CP.PCM.PN ---
Subjective - Date & Time of Evaluation Date of Evaluation: 08/25/18 Time of Evaluation: 06:20 - Subjective Subjective: Awake, alert, no distress, status post cholecystectomy Reason for consultation and follow up: Cardiac evaluation and clearance for cho lecystectomy, history of coronary artery disease post stents 10/2017, on Plavix and Aspirin.Post op follow up status post cholecystectomy. Seen and examined by me and Dr. Mcelroy Objective - Vital Signs/Intake and Output Vital Signs (last 24 hours): Temp Pulse Resp BP Pulse Ox 97.8 F 103 H 20 114/68 90 L 08/24/18 23:01 08/24/18 23:01 08/24/18 23:01 08/24/18 23:01 08/24/18 23:01 Intake and Output: 08/24/18 08/25/18 18:59 06:59 Intake Total 120 Balance 120 - Medications Medications: Current Medications Amlodipine Besylate (Norvasc) 5 mg PO DAILY [facility] Last Admin: 08/24/18 10:00 Dose: Not Given Enoxaparin Sodium (Lovenox) 40 mg SC DAILY [facility]; Protocol Last Admin: 08/23/18 10:16 Dose: 40 mg Hydromorphone HCl (Dilaudid) 1 mg IVP Q4H PRN PRN Reason: Pain, severe (8-10) Last Admin: 08/25/18 02:42 Dose: 1 mg Levalbuterol HCl (Xopenex) 1.25 mg IH [id number] [facility] Last Admin: 08/25/18 01:52 Dose: 1.25 mg Metoclopramide HCl (Reglan) 10 mg IV ONCE PRN PRN Reason: Nausea/Vomiting Metoprolol Tartrate (Lopressor) 25 mg PO BRKDIN [facility] Last Admin: 08/24/18 18:45 Dose: Not Given Ondansetron HCl (Zofran Inj) 4 mg IVP Q4H PRN PRN Reason: Nausea/Vomiting Last Admin: 08/24/18 13:09 Dose: 4 mg Ondansetron HCl (Zofran Inj) 4 mg IVP ONCE PRN PRN Reason: Nausea/Vomiting Pantoprazole Sodium (Protonix Inj) 40 mg IVP DAILY [facility] Last Admin: 08/23/18 10:15 Dose: 40 mg Potassium Phos/Sodium Phos (Neutra-Phos) 1 pkt PO TID [facility] Last Admin: 08/23/18 18:19 Dose: 1 pkt - Labs Labs: 08/24/18 11:20 08/24/18 06:20 PT 13.3 SECONDS (9.4-12.5) H 08/24/18 06:20 INR 1.15 08/24/18 06:20 APTT 27.1 Seconds (25.1-36.5) 08/24/18 06:20 - Constitutional Appears: Non-toxic, No Acute Distress - Head Exam Head Exam: NORMAL INSPECTION, NORMOCEPHALIC - Eye Exam Eye Exam: Normal appearance Pupil Exam: NORMAL ACCOMODATION - ENT Exam ENT Exam: Mucous Membranes Moist, Normal Exam - Respiratory Exam Respiratory Exam: Clear to Ausculation Bilateral, NORMAL BREATHING PATTERN - Cardiovascular Exam Cardiovascular Exam: +S1, +S2 - GI/Abdominal Exam GI & Abdominal Exam: Soft, Normal Bowel Sounds Additional comments: denies nausea or vomiting - Extremities Exam Extremities Exam: Full ROM, Normal Capillary Refill - Neurological Exam Neurological Exam: Alert, Awake, Oriented x3 - Psychiatric Exam Psychiatric exam: Normal Affect, Normal Mood - Skin Skin Exam: Dry, Normal Color, Warm Assessment and Plan - Assessment and Plan (Free Text) Assessment: A 82 year old female who came in to the ER due to abdominal pain associated with nausea and vomiting. Admitted for cholelithiasis. History of hypertension, hyperlipidemia, coronary artery disease, post cardiac stent of proximal LAD and proximal circumflex 10/2017. On Plavix and Aspirin. Cardiology consult was called for risk stratification and clearance for possible cholecystectomy. Denies chest pain or shortness of breath. Cleared with moderate risk considering co-morbidities from cardiac standpoint. Discontinued Plavix and Aspirin for 6 days for surgery. Aspirin on Status post Cholecystectomy POD#1. Will resume Plavix and Aspirin tomorrow if no signs of bleeding. Cardiac status stable. Plan: Denies nausea, denies chest pain Status post Cholecystectomy POD#1 Cardiac status table Heart rate and blood pressure stable Will resume Plavix and Aspirin tomorrow if no signs of bleeding On Norvasc 5 mg daily, Lovenox 40 mg daily, Lisinopril 5 mg daily Continue current treatment Pain management Continue IV antibiotics as ordered OOB to chair as tolerated Will follow up Plan and treatment discussed with Dr. Mcelroy
[2018-08-25 07:12] LABS: BASO # 0.03 K/mm3 (0.0-2.0); BASO % 0.1 % (0.0-3.0); EOS # 0.1 (0.0-0.7); EOS % 0.5 % (1.5-5.0); GRAN # 11.01 (1.4-6.5); GRAN % 52.1 % (50.0-68.0); HEMOGLOBIN 10.7 g/dL (12.0-16.0); LYMPH # 8.2 (1.2-3.4); LYMPH % 38.8 % (22.0-35.0); MEAN CELL VOLUME 89.7 fl (80.0-105.0); MEAN CORPUSCULAR HEMOGLOBIN 28.3 pg (25.0-35.0); MEAN CORPUSCULAR HGB CONC 31.6 g/dl (31.0-37.0); MEAN PLATELET VOLUME 9.6 fl (7.0-11.0); MONO # 1.8 (0.1-0.6); MONO % 8.5 % (1.0-6.0); RBC 3.78 10^6/uL (3.5-6.1); RED CELL DISTRIBUTION WIDTH 14.6 % (11.5-14.5); WHITE BLOOD COUNT 21.1 10^3/uL (4.5-11.0)
[2018-08-25 07:28] LABS: ALBUMIN 2.7 g/dL (3.0-4.8); ALT/SGPT 54 U/L (7-56); AST/SGOT 62 U/L (14-36); BLOOD UREA NITROGEN 9 mg/dL (7-21); CALCIUM 7.9 mg/dL (8.4-10.5); GFR NON-AFRICAN AMERICAN > 60
--- NOTE | 2018-08-25 09:29 | PN ---
DATE: 08/20/2018 LOCATION: The patient is in room 577, bed 2. REASON FOR CONSULTATION: Cardiac risk stratification for cholecystectomy. The patient known case of coronary artery disease, history of stent insertion in left anterior descending and circumflex in 10/2017, hyperlipidemia and hypertension. SUBJECTIVE: The patient admitted with abdominal pain found to have cholecystitis. The patient needs surgery. The patient is symptomatic from coronary artery disease, history of angioplasty, stent insertion as mentioned above. The patient still has pain and tenderness in the right upper quadrant of the abdomen. Clinically, cardiac status is stable. The patient if needed cholecystectomy can go for surgery as moderate risk and in the meantime, we will continue the present therapy with metoprolol 25 twice daily, amlodipine 5 daily and patient has been on metronidazole 500 mg IV every 8 hour, Protonix 40 IV daily and lisinopril 5 mg daily. PLAN We will follow. Servando Tobin MD
--- NOTE | 2018-08-25 10:06 | CP.PCM.PN ---
Subjective - Date & Time of Evaluation Date of Evaluation: 08/25/18 Time of Evaluation: 08:45 - Subjective Subjective: Surgery Progress note, Dr. Zheng Patient seen and examined at bedside. No overnight event and she reports no complaints. Tolerating her diet, ambulating OOB. Objective - Vital Signs/Intake and Output Vital Signs (last 24 hours): Temp Pulse Resp BP Pulse Ox 97.6 F 92 H 18 107/70 95 08/25/18 07:00 08/25/18 07:00 08/25/18 07:00 08/25/18 07:00 08/25/18 07:00 Intake and Output: 08/25/18 08/25/18 06:59 18:59 Intake Total 120 Balance 120 - Medications Medications: Current Medications Amlodipine Besylate (Norvasc) 5 mg PO DAILY [facility] Last Admin: 08/24/18 10:00 Dose: Not Given Aspirin (Ecotrin) 81 mg PO DAILY [facility] Clopidogrel Bisulfate (Plavix) 75 mg PO DAILY [facility] Enoxaparin Sodium (Lovenox) 40 mg SC DAILY [facility]; Protocol Last Admin: 08/23/18 10:16 Dose: 40 mg Enoxaparin Sodium (Lovenox) 40 mg SC DAILY [facility]; Protocol Hydromorphone HCl (Dilaudid) 1 mg IVP Q4H PRN PRN Reason: Pain, severe (8-10) Last Admin: 08/25/18 02:42 Dose: 1 mg Levalbuterol HCl (Xopenex) 1.25 mg IH [id number] [facility] Last Admin: 08/25/18 07:52 Dose: 1.25 mg Metoclopramide HCl (Reglan) 10 mg IV ONCE PRN PRN Reason: Nausea/Vomiting Metoprolol Tartrate (Lopressor) 25 mg PO BRKDIN [facility] Last Admin: 08/24/18 18:45 Dose: Not Given Ondansetron HCl (Zofran Inj) 4 mg IVP Q4H PRN PRN Reason: Nausea/Vomiting Last Admin: 08/24/18 13:09 Dose: 4 mg Ondansetron HCl (Zofran Inj) 4 mg IVP ONCE PRN PRN Reason: Nausea/Vomiting Pantoprazole Sodium (Protonix Inj) 40 mg IVP DAILY [facility] Last Admin: 08/23/18 10:15 Dose: 40 mg Potassium Phos/Sodium Phos (Neutra-Phos) 1 pkt PO TID [facility] Last Admin: 08/23/18 18:19 Dose: 1 pkt - Labs Labs: 08/25/18 06:40 08/25/18 06:40 PT 13.3 SECONDS (9.4-12.5) H 08/24/18 06:20 INR 1.15 08/24/18 06:20 APTT 27.1 Seconds (25.1-36.5) 08/24/18 06:20 - Constitutional Appears: Well, No Acute Distress - Head Exam Head Exam: ATRAUMATIC, NORMAL INSPECTION, NORMOCEPHALIC - Eye Exam Eye Exam: EOMI, Normal appearance, PERRL Pupil Exam: NORMAL ACCOMODATION, PERRL - Neck Exam Neck Exam: Full ROM, Normal Inspection. absent: Lymphadenopathy - Respiratory Exam Respiratory Exam: Clear to Ausculation Bilateral, NORMAL BREATHING PATTERN - Cardiovascular Exam Cardiovascular Exam: REGULAR RHYTHM, +S1, +S2. absent: Gallop, Rubs, Murmur - GI/Abdominal Exam GI & Abdominal Exam: Soft, Normal Bowel Sounds. absent: Guarding, Rigid, Tenderness, Mass, Organomegaly, Rebound - Extremities Exam Extremities Exam: Full ROM, Normal Capillary Refill, Normal Inspection. absent: Joint Swelling, Pedal Edema - Neurological Exam Neurological Exam: Alert, Awake, Oriented x3 - Psychiatric Exam Psychiatric exam: Normal Affect, Normal Mood - Skin Skin Exam: Dry, Intact, Normal Color, Warm Assessment and Plan - Assessment and Plan (Free Text) Assessment: 82 y/o female s/p lap evangelist POD#1 cholelithiasis HTN/HLD CAD s/p 2 drug eluding stents Plan: -encourage ambulation -incentive spirometry -pain control -advance diet as tolerated -anticoagulants resumed -further recs per surgical attending Dr. Law Carr,
[2018-08-25] MEDS: Enoxaparin 40 mg Syringe SC SCH (11:18)
--- NOTE | 2018-08-25 14:38 | PN ---
DATE: 08/25/2018 SUBJECTIVE: The patient has no complaints of any chest pain or shortness of breath. No headaches or dizziness. PHYSICAL EXAMINATION: VITAL SIGNS: Temperature is 97.6, pulse of 92, blood pressure 135/98, and respirations 18. GENERAL: The patient is lying in bed, flat, comfortable. HEENT: No oral lesion. Anicteric sclerae. Moist mucosa. NECK: No JVD, adenopathy, or thyromegaly. CARDIOVASCULAR: S1 and S2, regular. No murmurs, rubs, or gallops. LUNGS: Clear to auscultation bilaterally. No wheeze, rales, or rhonchi. ABDOMEN: Bowel sounds are positive, soft, nontender and nondistended. EXTREMITIES: No cyanosis, clubbing or edema. LABORATORY DATA: White count of 21, hemoglobin is 10.7, and creatinine is 0.5. ASSESSMENT: 1. Acute cholecystitis. 2. Cholelithiasis. 3. Coronary artery disease. 4. Hypertension. PLAN: The patient is currently on hydromorphone for pain. She is on metoprolol. She is on Lovenox for DVT prophylaxis. She is on phosphorus. We will place her on it because of hypophosphatemia, this has improved. The patient is on Zofran as needed. She is on a heart healthy diet. The patient's white count remains elevated. We will repeat the patient's blood work as well as the phosphorus level. Yohan Cervantes MD
--- NOTE | 2018-08-25 15:26 | PN ---
DATE: 08/25/2018 REASON FOR CONSULTATION: Preop evaluation for cholecystectomy, status post postop followup. This note is addition to the dictated by nurse practitioner, Merna Jeffries. The patient underwent yesterday laparoscopic cholecystectomy, stable. History of coronary stent 10/2017, off aspirin and Plavix more than a week. RECOMMENDATION: We will start DVT prophylaxis, Lovenox today and told the patient to start aspirin and Plavix from tomorrow. CV status is stable, possible discharge home today. Resume previous medication. We will follow with you. We will resume back Lovenox from today and aspirin and Plavix from tomorrow. Servando Mcelroy MD
[2018-08-26] MEDS: Levalbuterol 1.25 MG/3 ML Inhal Soln UD IH SCH ×4 (01:54→19:58)
[2018-08-26] MEDS: HYDROmorphone 1 mg/ml ISec IVP PRN ×3 (02:36→20:09)
[2018-08-26 07:10] LABS: HEMOGLOBIN 9.1 g/dL (12.0-16.0); MEAN CELL VOLUME 89.3 fl (80.0-105.0); MEAN CORPUSCULAR HEMOGLOBIN 28.7 pg (25.0-35.0); MEAN CORPUSCULAR HGB CONC 32.2 g/dl (31.0-37.0); RBC 3.17 10^6/uL (3.5-6.1); RED CELL DISTRIBUTION WIDTH 14.5 % (11.5-14.5)
--- NOTE | 2018-08-26 07:20 | CP.PCM.PN ---
Subjective - Date & Time of Evaluation Date of Evaluation: 08/26/18 Time of Evaluation: 06:50 - Subjective Subjective: Awake, alert, no distress, lying in bed Reason for consultation and follow up: Cardiac evaluation and clearance for cholecystectomy, history of coronary artery disease post stents 10/2017, on Plavix and Aspirin.Post op follow up status post cholecystectomy. Seen and examined by me and Dr. Mcelroy Objective - Vital Signs/Intake and Output Vital Signs (last 24 hours): Temp Pulse Resp BP Pulse Ox 97.8 F 103 H 20 130/69 97 08/25/18 23:17 08/25/18 23:17 08/25/18 23:17 08/25/18 23:17 08/25/18 23:17 Intake and Output: 08/26/18 08/26/18 06:59 18:59 Intake Total 180 Balance 180 - Medications Medications: Current Medications Amlodipine Besylate (Norvasc) 5 mg PO DAILY [facility] Last Admin: 08/25/18 11:18 Dose: 5 mg Aspirin (Ecotrin) 81 mg PO DAILY [facility] Clopidogrel Bisulfate (Plavix) 75 mg PO DAILY [facility] Enoxaparin Sodium (Lovenox) 40 mg SC DAILY [facility]; Protocol Last Admin: 08/25/18 11:18 Dose: 40 mg Hydromorphone HCl (Dilaudid) 1 mg IVP Q4H PRN PRN Reason: Pain, severe (8-10) Last Admin: 08/26/18 02:36 Dose: 1 mg Levalbuterol HCl (Xopenex) 1.25 mg IH [id number] [facility] Last Admin: 08/26/18 01:54 Dose: 1.25 mg Metoclopramide HCl (Reglan) 10 mg IV ONCE PRN PRN Reason: Nausea/Vomiting Metoprolol Tartrate (Lopressor) 25 mg PO BRKDIN [facility] Last Admin: 08/25/18 19:09 Dose: Not Given Ondansetron HCl (Zofran Inj) 4 mg IVP Q4H PRN PRN Reason: Nausea/Vomiting Last Admin: 08/24/18 13:09 Dose: 4 mg Ondansetron HCl (Zofran Inj) 4 mg IVP ONCE PRN PRN Reason: Nausea/Vomiting Pantoprazole Sodium (Protonix Inj) 40 mg IVP DAILY [facility] Last Admin: 08/23/18 10:15 Dose: 40 mg Potassium Phos/Sodium Phos (Neutra-Phos) 1 pkt PO TID [facility] Last Admin: 08/23/18 18:19 Dose: 1 pkt - Labs Labs: 08/26/18 06:45 08/25/18 06:40 PT 13.3 SECONDS (9.4-12.5) H 08/24/18 06:20 INR 1.15 08/24/18 06:20 APTT 27.1 Seconds (25.1-36.5) 08/24/18 06:20 - Constitutional Appears: Non-toxic, No Acute Distress - Head Exam Head Exam: NORMAL INSPECTION, NORMOCEPHALIC - Eye Exam Eye Exam: Normal appearance Pupil Exam: NORMAL ACCOMODATION - ENT Exam ENT Exam: Mucous Membranes Moist, Normal Exam - Respiratory Exam Respiratory Exam: Clear to Ausculation Bilateral, NORMAL BREATHING PATTERN - Cardiovascular Exam Cardiovascular Exam: +S1, +S2 - GI/Abdominal Exam GI & Abdominal Exam: Soft, Normal Bowel Sounds - Extremities Exam Extremities Exam: Full ROM, Normal Capillary Refill - Neurological Exam Neurological Exam: Alert, Awake, Oriented x3 - Psychiatric Exam Psychiatric exam: Normal Affect, Normal Mood - Skin Skin Exam: Dry, Normal Color, Warm Assessment and Plan - Assessment and Plan (Free Text) Assessment: A 82 year old female who came in to the ER due to abdominal pain associated with nausea and vomiting. Admitted for cholelithiasis. History of hypertension, hyperlipidemia, coronary artery disease, post cardiac stent of proximal LAD and proximal circumflex 10/2017. On Plavix and Aspirin. Cardiology consult was called for risk stratification and clearance for possible cholecystectomy. Denies chest pain or shortness of breath. Status post Cholecystectomy POD#2. Cardiac status stable. Will resume Plavix and Aspirin today. Plan: Denies nausea, denies chest pain, Post op surgical site pain, PRN pain medicine given with relief Status post Cholecystectomy POD#2 Claimed to be OOB to chair yesterday Cardiac status table Heart rate and blood pressure stable Will resume Plavix and Aspirin today On Norvasc 5 mg daily, Lovenox 40 mg daily, Lisinopril 5 mg daily Continue current treatment Pain management Continue IV antibiotics as ordered OOB to chair as tolerated Will follow up Plan and treatment discussed with Dr. Mcelroy
[2018-08-26 07:23] LABS: ALBUMIN 2.4 g/dL (3.0-4.8); ALT/SGPT 48 U/L (7-56); AST/SGOT 39 U/L (14-36); BLOOD UREA NITROGEN 6 mg/dL (7-21); CALCIUM 7.6 mg/dL (8.4-10.5); GFR NON-AFRICAN AMERICAN > 60
[2018-08-26 08:44] VITALS: RESP 18
--- NOTE | 2018-08-26 10:14 | CP.PCM.PN ---
Subjective - Date & Time of Evaluation Date of Evaluation: 08/26/18 Time of Evaluation: 10:11 - Subjective Subjective: Surgery Progress note- Dr. Zheng Patient seen and examined at bedside. Patient feeling better than yesterday. tolerating regular diet. + OOB and ambulating. + Flatus and BM. Denies fevers, chills, chest pain, shortness of breath. Objective - Vital Signs/Intake and Output Vital Signs (last 24 hours): Temp Pulse Resp BP Pulse Ox 97.5 F L 89 18 111/64 95 08/26/18 06:00 08/26/18 06:00 08/26/18 06:00 08/26/18 06:00 08/26/18 06:00 Intake and Output: 08/26/18 08/26/18 06:59 18:59 Intake Total 180 Balance 180 - Medications Medications: Current Medications Amlodipine Besylate (Norvasc) 5 mg PO DAILY [facility] Last Admin: 08/25/18 11:18 Dose: 5 mg Aspirin (Ecotrin) 81 mg PO DAILY [facility] Clopidogrel Bisulfate (Plavix) 75 mg PO DAILY [facility] Docusate Sodium (Colace) 100 mg PO BID [facility] Enoxaparin Sodium (Lovenox) 40 mg SC DAILY [facility]; Protocol Last Admin: 08/25/18 11:18 Dose: 40 mg Hydromorphone HCl (Dilaudid) 1 mg IVP Q4H PRN PRN Reason: Pain, severe (8-10) Last Admin: 08/26/18 02:36 Dose: 1 mg Levalbuterol HCl (Xopenex) 1.25 mg IH [id number] [facility] Last Admin: 08/26/18 07:44 Dose: 1.25 mg Metoclopramide HCl (Reglan) 10 mg IV ONCE PRN PRN Reason: Nausea/Vomiting Metoprolol Tartrate (Lopressor) 25 mg PO BRKDIN [facility] Last Admin: 08/25/18 19:09 Dose: Not Given Ondansetron HCl (Zofran Inj) 4 mg IVP Q4H PRN PRN Reason: Nausea/Vomiting Last Admin: 08/24/18 13:09 Dose: 4 mg Ondansetron HCl (Zofran Inj) 4 mg IVP ONCE PRN PRN Reason: Nausea/Vomiting Pantoprazole Sodium (Protonix Inj) 40 mg IVP DAILY [facility] Last Admin: 08/23/18 10:15 Dose: 40 mg Polyethylene Glycol (Miralax) 17 gm PO BID [facility] Potassium Phos/Sodium Phos (Neutra-Phos) 1 pkt PO TID [facility] Last Admin: 08/23/18 18:19 Dose: 1 pkt - Labs Labs: 08/26/18 06:45 08/26/18 06:45 PT 13.3 SECONDS (9.4-12.5) H 08/24/18 06:20 INR 1.15 08/24/18 06:20 APTT 27.1 Seconds (25.1-36.5) 08/24/18 06:20 - Constitutional Appears: Non-toxic, No Acute Distress - Head Exam Head Exam: ATRAUMATIC - Eye Exam Eye Exam: EOMI. absent: Scleral icterus - ENT Exam ENT Exam: Mucous Membranes Moist - Respiratory Exam Respiratory Exam: NORMAL BREATHING PATTERN. absent: Accessory Muscle Use, Respiratory Distress - Cardiovascular Exam Cardiovascular Exam: REGULAR RHYTHM. absent: Bradycardia, Tachycardia - GI/Abdominal Exam GI & Abdominal Exam: Soft, Tenderness (mildly tender around incision). absent: Distended, Firm, Guarding, Rigid - Neurological Exam Neurological Exam: Alert, Awake, Oriented x3 - Psychiatric Exam Psychiatric exam: Normal Affect - Skin Skin Exam: Intact, Warm Assessment and Plan - Assessment and Plan (Free Text) Assessment: 82F w/ gangrenous acute on chronic cholecystitis s/p laparoscopic cholecystectomy POD #2 Plan: - Diet as tolerated - encourage OOB and ambulation - no heavy lifiting > 15lbs for 4-6 weeks - cleared for discharge from a surgical standpoint - further recs per Dr. Marce Coffman PGY2
[2018-08-26] MEDS: POLYETHYLENE GLYCOL 3350 17 GM/Dose PACKET PO SCH ×2 (11:09→18:22)
[2018-08-26] MEDS: Enoxaparin 40 mg Syringe SC SCH (11:09)
--- NOTE | 2018-08-26 12:36 | CP.PCM.PCO ---
Physician Communication Note - Physician Communication Note Physician Communication Note: reeval and repeat labs in am
--- NOTE | 2018-08-26 16:10 | PN ---
DATE: 08/26/2018 SUBJECTIVE: The patient is an 82-year-old seen and examined, doing well. Complained of some abdominal discomfort at the surgical site. Complained of feeling a little bloated. PHYSICAL EXAMINATION: VITAL SIGNS: She is afebrile. Pulse 89, respirations 18, blood pressure 111/64. LUNGS: Bilateral fair air flow. No rhonchi or crackles. HEART: S1 and S2 audible. ABDOMEN: Soft, nonpalpable. Right upper quadrant discomfort. NEUROLOGIC: She is awake, alert, oriented, and communicative. LABORATORY DATA: WBC 21, hemoglobin 9.1, hematocrit 28.3, platelets 208. Chemistry: Sodium 137, potassium 4, chloride 102, CO2 34, BUN 6, creatinine 0.4, blood sugar 110. ASSESSMENT AND PLAN: 1. Laparoscopic cholecystectomy. 2. Coronary artery disease, history of angioplasty almost a year ago. 3. Hypertension. 4. Hyperlipidemia. So, the plan is, the patient will continue on analgesics. We will continue her on antibiotics. We will resume her aspirin and Plavix if cleared by Surgery. The patient will be re-evaluated in the a.m. and will make disposition plan. She is a best candidate for TCU. Lillian Gan MD
[2018-08-27] MEDS: Levalbuterol 1.25 MG/3 ML Inhal Soln UD IH SCH ×3 (02:40→13:36)
--- NOTE | 2018-08-27 06:39 | CP.PCM.PN ---
Subjective - Date & Time of Evaluation Date of Evaluation: 08/27/18 Time of Evaluation: 06:20 - Subjective Subjective: No distress, lying in bed, awake Reason for consultation and follow up: Post op follow up status post cholecystectomy. History of coronary artery disease post stents 10/2017, on Plavix and Aspirin. Seen and examined by me and Dr. Mcelroy Objective - Vital Signs/Intake and Output Vital Signs (last 24 hours): Temp Pulse Resp BP Pulse Ox 97.5 F L 89 18 147/80 95 08/26/18 06:00 08/26/18 06:00 08/26/18 06:00 08/26/18 18:35 08/26/18 06:00 Intake and Output: 08/26/18 08/27/18 18:59 06:59 Intake Total 120 Balance 120 - Medications Medications: Current Medications Amlodipine Besylate (Norvasc) 5 mg PO DAILY [facility] Last Admin: 08/26/18 11:09 Dose: 5 mg Aspirin (Ecotrin) 81 mg PO DAILY [facility] Last Admin: 08/26/18 11:09 Dose: 81 mg Clopidogrel Bisulfate (Plavix) 75 mg PO DAILY [facility] Last Admin: 08/26/18 11:09 Dose: 75 mg Docusate Sodium (Colace) 100 mg PO BID [facility] Last Admin: 08/26/18 18:22 Dose: 100 mg Enoxaparin Sodium (Lovenox) 40 mg SC DAILY [facility]; Protocol Last Admin: 08/26/18 11:09 Dose: 40 mg Hydromorphone HCl (Dilaudid) 1 mg IVP Q4H PRN PRN Reason: Pain, severe (8-10) Last Admin: 08/26/18 20:09 Dose: 1 mg Levalbuterol HCl (Xopenex) 1.25 mg IH [id number] [facility] Last Admin: 08/27/18 02:40 Dose: 1.25 mg Metoprolol Tartrate (Lopressor) 25 mg PO BRKDIN [facility] Last Admin: 08/26/18 18:35 Dose: 25 mg Ondansetron HCl (Zofran Inj) 4 mg IVP Q4H PRN PRN Reason: Nausea/Vomiting Last Admin: 08/24/18 13:09 Dose: 4 mg Pantoprazole Sodium (Protonix Inj) 40 mg IVP DAILY [facility] Last Admin: 08/23/18 10:15 Dose: 40 mg Polyethylene Glycol (Miralax) 17 gm PO BID [facility] Last Admin: 08/26/18 18:22 Dose: 17 gm - Labs Labs: 08/26/18 06:45 08/26/18 06:45 PT 13.3 SECONDS (9.4-12.5) H 08/24/18 06:20 INR 1.15 08/24/18 06:20 APTT 27.1 Seconds (25.1-36.5) 08/24/18 06:20 Assessment and Plan - Assessment and Plan (Free Text) Assessment: A 82 year old female who came in to the ER due to abdominal pain associated with nausea and vomiting. Admitted for cholelithiasis. History of hypertension, hyperlipidemia, coronary artery disease, post cardiac stent of proximal LAD and proximal circumflex 10/2017. On Plavix and Aspirin. Cardiology consult was called for risk stratification and clearance for possible cholecystectomy. Denies chest pain or shortness of breath. Status post Cholecystectomy POD#3. Cardiac status stable. Physical therapy. Leukocytosis, on IV antibiotics. Plan: Denies nausea, tolerating diet Status post Cholecystectomy POD#3 Cardiac status table Heart rate controlled Blood pressure stable On Norvasc 5 mg daily, Lovenox 40 mg daily, Lisinopril 5 mg daily Plavix 75 mg daily, Aspirin 81 mg daily Continue current treatment Pain management Continue IV antibiotics as ordered OOB to chair as tolerated Discharge planning, possible TCU ( lives alone) Will follow up Plan and treatment discussed with Dr. Mcelroy
[2018-08-27 08:05] VITALS: PULSE 82; TEMP 98.9; O2SAT 94
--- NOTE | 2018-08-27 08:07 | CP.PCM.PN ---
Subjective - Date & Time of Evaluation Date of Evaluation: 08/27/18 Time of Evaluation: 08:04 - Subjective Subjective: Surgery Progress note- Dr. Zheng Patient seen and examined at bedside. Patient feeling better than yesterday. tolerating regular diet. + OOB and ambulating with PT. + Flatus and BM. Denies fevers, chills, chest pain, shortness of breath. Objective - Vital Signs/Intake and Output Vital Signs (last 24 hours): Temp Pulse Resp BP Pulse Ox 97.5 F L 89 18 147/80 95 08/26/18 06:00 08/26/18 06:00 08/26/18 06:00 08/26/18 18:35 08/26/18 06:00 Intake and Output: 08/27/18 08/27/18 06:59 18:59 Intake Total 120 Balance 120 - Medications Medications: Current Medications Amlodipine Besylate (Norvasc) 5 mg PO DAILY [facility] Last Admin: 08/26/18 11:09 Dose: 5 mg Aspirin (Ecotrin) 81 mg PO DAILY [facility] Last Admin: 08/26/18 11:09 Dose: 81 mg Clopidogrel Bisulfate (Plavix) 75 mg PO DAILY [facility] Last Admin: 08/26/18 11:09 Dose: 75 mg Docusate Sodium (Colace) 100 mg PO BID [facility] Last Admin: 08/26/18 18:22 Dose: 100 mg Enoxaparin Sodium (Lovenox) 40 mg SC DAILY [facility]; Protocol Last Admin: 08/26/18 11:09 Dose: 40 mg Hydromorphone HCl (Dilaudid) 1 mg IVP Q4H PRN PRN Reason: Pain, severe (8-10) Last Admin: 08/26/18 20:09 Dose: 1 mg Levalbuterol HCl (Xopenex) 1.25 mg IH [id number] [facility] Last Admin: 08/27/18 07:39 Dose: 1.25 mg Metoprolol Tartrate (Lopressor) 25 mg PO BRKDIN [facility] Last Admin: 08/26/18 18:35 Dose: 25 mg Ondansetron HCl (Zofran Inj) 4 mg IVP Q4H PRN PRN Reason: Nausea/Vomiting Last Admin: 08/24/18 13:09 Dose: 4 mg Pantoprazole Sodium (Protonix Inj) 40 mg IVP DAILY [facility] Last Admin: 08/23/18 10:15 Dose: 40 mg Polyethylene Glycol (Miralax) 17 gm PO BID [facility] Last Admin: 08/26/18 18:22 Dose: 17 gm - Labs Labs: 08/26/18 06:45 08/26/18 06:45 PT 13.3 SECONDS (9.4-12.5) H 08/24/18 06:20 INR 1.15 08/24/18 06:20 APTT 27.1 Seconds (25.1-36.5) 08/24/18 06:20 - Constitutional Appears: Non-toxic, No Acute Distress - Head Exam Head Exam: ATRAUMATIC - Eye Exam Eye Exam: EOMI. absent: Scleral icterus - ENT Exam ENT Exam: Mucous Membranes Moist - Respiratory Exam Respiratory Exam: NORMAL BREATHING PATTERN. absent: Accessory Muscle Use, Respiratory Distress - Cardiovascular Exam Cardiovascular Exam: REGULAR RHYTHM. absent: Bradycardia, Tachycardia - GI/Abdominal Exam GI & Abdominal Exam: Soft. absent: Distended, Firm, Guarding, Rigid, Tenderness - Extremities Exam Extremities Exam: absent: Calf Tenderness - Neurological Exam Neurological Exam: Alert, Awake, Oriented x3 - Psychiatric Exam Psychiatric exam: Normal Affect - Skin Skin Exam: Intact, Warm Assessment and Plan - Assessment and Plan (Free Text) Assessment: 82F w/ Acute Hemorrhagic necrotizing acute cholecystitis and cholelithiasis s/p lap evangelist POD#3 Plan: - Diet as tolerated - encourage OOB and ambulation - no heavy lifiting > 15lbs for 4-6 weeks - cleared for discharge from a surgical standpoint - ok to start ASA and PLVX - further recs per Dr. Marce Coffman PGY2
[2018-08-27 10:20] LABS: BASO # 0.03 K/mm3 (0.0-2.0); BASO % 0.1 % (0.0-3.0); EOS # 0.1 (0.0-0.7); EOS % 0.4 % (1.5-5.0); GRAN # 11.64 (1.4-6.5); GRAN % 55.5 % (50.0-68.0); HEMOGLOBIN 9.7 g/dL (12.0-16.0); LYMPH # 8.2 (1.2-3.4); MEAN CELL VOLUME 90.5 fl (80.0-105.0); MEAN CORPUSCULAR HEMOGLOBIN 28.9 pg (25.0-35.0); MEAN CORPUSCULAR HGB CONC 31.9 g/dl (31.0-37.0); MONO # 1.1 (0.1-0.6); RBC 3.36 10^6/uL (3.5-6.1); RED CELL DISTRIBUTION WIDTH 14.7 % (11.5-14.5)
[2018-08-27 10:27] LABS: ALBUMIN 2.9 g/dL (3.0-4.8); ALT/SGPT 41 U/L (7-56); AST/SGOT 34 U/L (14-36); BLOOD UREA NITROGEN 5 mg/dL (7-21); CALCIUM 8.2 mg/dL (8.4-10.5); GFR NON-AFRICAN AMERICAN > 60
[2018-08-27] MEDS: POLYETHYLENE GLYCOL 3350 17 GM/Dose PACKET PO SCH (11:16)
[2018-08-27] MEDS: Enoxaparin 40 mg Syringe SC SCH (11:25)
[2018-08-27 11:27] VITALS: BP 148/74
[2018-08-27] MEDS: HYDROmorphone 1 mg/ml ISec IVP PRN (14:33)
--- NOTE | 2018-08-27 16:10 | PN ---
DATE: 08/27/2018 SUBJECTIVE: The patient is an 82-year-old seen and examined. Doing well. Eating and tolerating. Slight abdominal discomfort, otherwise doing well. PHYSICAL EXAMINATION: GENERAL: She is awake, alert, oriented, communicative. VITAL SIGNS: She is afebrile. Pulse 82, respirations 18, blood pressure 108/74. LUNGS: Bilateral fair air flow. No rhonchi or crackles. HEART: S1 and S2 audible. ABDOMEN: Soft, plus slight palpable discomfort. NEUROLOGIC: She is awake, alert, oriented, and communicative. LABORATORY DATA: WBC is 21, hemoglobin 9.7, hematocrit 30.4, platelets 78. Chemistry: Sodium 139, potassium 4.2, chloride 103, CO2 32, BUN 5, creatinine 0.4, blood sugar 169 and phosphorus 2.2. ASSESSMENT AND PLAN: 1. Status post acute cholecystitis and cholelithiasis, status post laparoscopic cholecystectomy, had gangrenous gallbladder removed. 2. Coronary artery disease, status post angioplasty. 3. Hypertension. 4. Chronic lymphocytic leukemia. 5. Anemia. So, the plan is, the patient is currently tolerating her food, she seems to be deconditioned. Awaiting transfer to transitional care unit for rehab and gait training, and we will resume her Plavix, aspirin and statins. Lillian Gan MD
== END 2018-08-27 15:49 | DRG 418 ==
LOC: ED 22:56 → ERH 08-18 01:34 → 5RNO 08-18 03:06 → 5RSO 08-18 11:04
PROVIDERS: ADMIT Internal Medicine; ATTEND Internal Medicine
PROC: BF131ZZ Fluoroscopy of Gallbladder and Bile Ducts using Low Osmolar Contrast (ICD-10-PCS; 2018-08-24)
PROC: 0FT44ZZ Resection of Gallbladder, Percutaneous Endoscopic Approach (ICD-10-PCS; principal; 2018-08-24 07:30)
DX: K80.62 Calculus of gallbladder and bile duct with acute cholecystitis without obstruction (principal); C91.90 Lymphoid leukemia, unspecified not having achieved remission; C91.10 Chronic lymphocytic leukemia of B-cell type not having achieved remission; I25.10 Atherosclerotic heart disease of native coronary artery without angina pectoris; I10 Essential (primary) hypertension; K57.30 Diverticulosis of large intestine without perforation or abscess without bleeding; K44.9 Diaphragmatic hernia without obstruction or gangrene; N28.1 Cyst of kidney, acquired; M47.816 Spondylosis without myelopathy or radiculopathy, lumbar region; M81.0 Age-related osteoporosis without current pathological fracture; Z79.02 Long term (current) use of antithrombotics/antiplatelets; D64.9 Anemia, unspecified; E78.00 Pure hypercholesterolemia, unspecified; E78.5 Hyperlipidemia, unspecified; I11.0 Hypertensive heart disease with heart failure; I25.2 Old myocardial infarction; I50.9 Heart failure, unspecified; K59.00 Constipation, unspecified; Z79.82 Long term (current) use of aspirin; Z79.899 Other long term (current) drug therapy; Z80.3 Family history of malignant neoplasm of breast; Z82.49 Family history of ischemic heart disease and other diseases of the circulatory system; Z90.710 Acquired absence of both cervix and uterus; Z95.5 Presence of coronary angioplasty implant and graft; Z88.8 Allergy status to other drugs, medicaments and biological substances

== ENCOUNTER 2018-08-27 15:49 | Inpatient (IN) | payer OTHER, MEDICARE ==
[2018-08-27] MEDS ORDERED: Levalbuterol 1.25 MG/3 ML Inhal Soln UD IH PRN (16:50)
[2018-08-27] MEDS: POLYETHYLENE GLYCOL 3350 17 GM/Dose PACKET PO SCH (18:06)
[2018-08-27] MEDS ORDERED: Influenza Vaccine 60 mcg/0.5 mL SYR (4YR UP) IM ONE (23:23)
[2018-08-27] MEDS ORDERED: Pneumococcal 23-Valent Vaccine IM ONE (23:23)
[2018-08-27] MEDS: HYDROmorphone 1 mg/ml ISec IVP PRN (23:37)
[2018-08-28] MEDS: Enoxaparin 40 mg Syringe SC SCH (05:45)
[2018-08-28] MEDS: POLYETHYLENE GLYCOL 3350 17 GM/Dose PACKET PO SCH ×2 (09:43→17:48)
--- NOTE | 2018-08-28 19:44 | HP ---
DATE OF EXAM: 08/28/2018 HISTORY OF PRESENT ILLNESS: The patient is an 82-year-old who was admitted because of the abdominal pain. She was found to have acute cholecystitis and HIDA scan was non-visualized. The patient has angioplasty done last year. She was on Plavix and aspirin, surgery was on hold for 5 days. She end up having surgery on 08/24/2018, although she was admitted on 08/17/2018, so her procedure was uneventful. She had laparoscopic cholecystectomy done, remained well. PAST MEDICAL HISTORY: She has significant past medical history of coronary artery disease, status post angioplasty, cholelithiasis, chronic lymphocytic leukemia, chronic anemia, hypertension, hyperlipidemia. ALLERGIES: SHE IS ALLERGIC TO FOSAMAX. HOME MEDICATIONS: She is on Norvasc 5 mg daily, Evista 60 mg daily, multivitamin, metoprolol 25 mg daily, lorazepam 10 mg daily, lisinopril 40 mg daily, Plavix 75 mg daily, Lipitor 20 mg daily and aspirin 81 mg daily. SOCIAL HISTORY: She lives by herself. She has son who lives out of town. Denies smoking or drinking. PHYSICAL EXAMINATION: GENERAL: She is comfortable, eating and tolerating, participating in therapy. VITAL SIGNS: The patient is afebrile. Pulse 76, respiration 20 and blood pressure 129/84. LUNGS: Bilateral good airflow. No rhonchi or crackle. HEART: S1 and S2, audible. ABDOMEN: Soft and nontender. No rebound. No guarding. NEUROLOGICAL: The patient is awake, alert, oriented, communicative and able to ambulate. ASSESSMENT: 1. Status post cholecystectomy. 2. History of hypertension. 3. Coronary artery disease, status post angioplasty. 4. Hyperlipidemia. 5. Chronic lymphocytic leukemia. PLAN: The patient is off antibiotic. The patient states she does not need anymore pain medication. We will give her MiraLax p.r.n. and nebulizer treatment as needed. We will followup patient on Thursday. Lillian Gan MD
[2018-08-28] MEDS: HYDROmorphone 1 mg/ml ISec IVP PRN (23:37)
[2018-08-29] MEDS: Enoxaparin 40 mg Syringe SC SCH (05:39)
--- NOTE | 2018-08-29 07:14 | CP.PCM.PN ---
<Manny Jaffe - Last Filed: 08/29/18 07:10> Subjective - Date & Time of Evaluation Date of Evaluation: 08/29/18 Time of Evaluation: 07:10 - Subjective Subjective: Surgery: Dr. Zheng Pt seen and examined. Resting comfortably in bed. No complaints. Pt states that she does feel stronger today. She is tolerating diet. Objective - Vital Signs/Intake and Output Vital Signs (last 24 hours): Temp Pulse Resp BP Pulse Ox 98.5 F 86 14 154/78 H 99 08/28/18 16:00 08/28/18 16:00 08/28/18 16:00 08/28/18 17:48 08/28/18 16:00 - Medications Medications: Current Medications Amlodipine Besylate (Norvasc) 5 mg PO DAILY [facility] Last Admin: 08/28/18 09:43 Dose: 5 mg Aspirin (Ecotrin) 81 mg PO 0800 [facility] Last Admin: 08/28/18 08:26 Dose: 81 mg Clopidogrel Bisulfate (Plavix) 75 mg PO DAILY [facility] Last Admin: 08/28/18 09:43 Dose: 75 mg Docusate Sodium (Colace) 100 mg PO BID [facility] Last Admin: 08/28/18 17:47 Dose: Not Given Enoxaparin Sodium (Lovenox) 40 mg SC 0630 [facility]; Protocol Last Admin: 08/29/18 05:39 Dose: 40 mg Hydromorphone HCl (Dilaudid) 1 mg IVP Q4H PRN PRN Reason: severe pain ( 8-10 ) Last Admin: 08/28/18 23:37 Dose: 1 mg Levalbuterol HCl (Xopenex) 1.25 mg IH [id number] PRN PRN Reason: Shortness of Breath Metoprolol Tartrate (Lopressor) 25 mg PO 0800,1800 [facility] Last Admin: 08/28/18 17:48 Dose: 25 mg Ondansetron HCl (Zofran Inj) 4 mg IVP Q4H PRN PRN Reason: Nausea/Vomiting Polyethylene Glycol (Miralax) 17 gm PO BID [facility] Last Admin: 08/28/18 17:48 Dose: Not Given - Constitutional Appears: Non-toxic, No Acute Distress - Head Exam Head Exam: ATRAUMATIC, NORMOCEPHALIC - Eye Exam Eye Exam: EOMI - ENT Exam ENT Exam: Mucous Membranes Moist - Neck Exam Neck Exam: Full ROM - Respiratory Exam Respiratory Exam: NORMAL BREATHING PATTERN. absent: Accessory Muscle Use, Respiratory Distress - GI/Abdominal Exam GI & Abdominal Exam: Soft. absent: Distended, Firm, Guarding, Rigid, Tenderness, Rebound - Extremities Exam Extremities Exam: absent: Calf Tenderness, Pedal Edema - Neurological Exam Neurological Exam: Alert, Awake, Oriented x3 - Psychiatric Exam Psychiatric exam: Normal Affect, Normal Mood Assessment and Plan - Assessment and Plan (Free Text) Assessment: 82F w. cholecystitis, s/p lap evangelist POD#5 -Diet as tolerated -Encourage PT/OOB/IS use -clear for D/C from surgical standpoint -please reconsult if needed, will sign off -d/w attending Ld PGY4 <Tree Zheng - Last Filed: 09/07/18 17:48> Objective - Vital Signs/Intake and Output Vital Signs (last 24 hours): Temp Pulse Resp BP Pulse Ox 97.3 F L 78 20 128/76 93 L 09/04/18 10:00 09/04/18 10:01 09/04/18 10:00 09/04/18 10:01 09/04/18 10:00 Assessment and Plan - Assessment and Plan (Free Text) Assessment: Patient was seen, evaluated and examined by me at the bedside. I agree with assessment and plan as stated in the resident's note.
[2018-08-29] MEDS: POLYETHYLENE GLYCOL 3350 17 GM/Dose PACKET PO SCH ×2 (09:34→17:49)
[2018-08-29] MEDS: HYDROmorphone 1 mg/ml ISec IVP PRN ×2 (11:36→22:18)
--- NOTE | 2018-08-29 16:42 | PN ---
DATE: 08/29/2018 SUBJECTIVE: The patient has no complaint of any chest pain or shortness of breath. She is able to ambulate. She said she is tolerating her diet. PHYSICAL EXAMINATION: VITAL SIGNS: Temperature is 98.5, pulse of 86, blood pressure 126/67, respirations 14. GENERAL: The patient is lying in bed, flat, comfortable. HEENT: No oral lesion. Anicteric sclerae. Moist mucosa. NECK: No JVD, adenopathy, or thyromegaly. CARDIOVASCULAR: S1 and S2, regular. No murmurs, rubs, or gallops. LUNGS: Clear to auscultation bilaterally. No wheeze, rales, or rhonchi. ABDOMEN: Bowel sounds are positive, soft, nontender and nondistended. EXTREMITIES: No cyanosis, clubbing or edema. ASSESSMENT: 1. Status post cholecystectomy. 2. Hypertension. 3. Coronary artery disease. 4. Dyslipidemia. 5. Chronic lymphocytic leukemia. PLAN: The patient is currently receiving Dilaudid for pain. She is on Colace for constipation. She is going to continue with Lovenox for DVT prophylaxis. She is on Norvasc for her hypertension. She is on MiraLax for her constipation. She is on Zofran as needed. She is getting incentive spirometry. She is being followed by Surgery. [facility]. Yohan Cervantes MD
[2018-08-30] MEDS: Enoxaparin 40 mg Syringe SC SCH (05:54)
[2018-08-30] MEDS: HYDROmorphone 1 mg/ml ISec IVP PRN (05:58)
[2018-08-30] MEDS: POLYETHYLENE GLYCOL 3350 17 GM/Dose PACKET PO SCH ×2 (10:03→17:40)
[2018-08-30] MEDS: Oxycodone/Acetaminophen 5/325 mg Tab PO PRN ×3 (10:06→21:36)
--- NOTE | 2018-08-30 15:29 | PN ---
DATE: 08/30/2018 SUBJECTIVE: The patient is 82-year-old, seen and examined, doing well. Eating and tolerating. Some right upper quadrant discomfort today, otherwise doing well. PHYSICAL EXAMINATION: GENERAL: She is awake, alert, oriented and communicative. VITAL SIGNS: She is afebrile. Pulse 83, respiration 14 and blood pressure 126/79. LUNGS: Bilateral fair airflow. No rhonchi or crackle. HEART: S1 and S2, audible. ABDOMEN: Soft and nontender. No rebound. No guarding. NEUROLOGICAL: The patient is awake, alert, oriented and communicative. Able to move all extremities. Ambulatory. ASSESSMENT: 1. Status post acute cholecystitis, status post cholecystectomy. 2. Chronic lymphocytic leukemia. 3. Coronary artery disease, status post angioplasty. PLAN: The patient's MAR reviewed and seems to be doing well. We will continue current medication. We will followup in a.m. Lillian Gan MD
[2018-08-31] MEDS: Oxycodone/Acetaminophen 5/325 mg Tab PO PRN ×3 (04:23→21:32)
[2018-08-31] MEDS: Enoxaparin 40 mg Syringe SC SCH (05:30)
[2018-08-31] MEDS: POLYETHYLENE GLYCOL 3350 17 GM/Dose PACKET PO SCH ×2 (11:19→17:30)
--- NOTE | 2018-08-31 18:00 | PN ---
DATE: 08/31/2018 SUBJECTIVE: The patient is 82 years old, seen and examined in therapy, doing well and participating in therapy. PHYSICAL EXAMINATION VITAL SIGNS: The patient is afebrile. Pulse 65, respirations 18, blood pressure 120/78. LUNGS: Bilateral fair airflow. No rhonchi or crackles. HEART: S1 and S2 audible. ABDOMEN: Soft and nontender. No rebound. No guarding. NEUROLOGIC: The patient is awake, alert, oriented, communicative, ambulatory. EXTREMITIES: Bilateral leg, no edema. ASSESSMENT: 1. Acute cholecystitis. 2. Cholelithiasis, status post laparoscopic cholecystectomy. 3. Chronic lymphocytic leukemia. 4. Hypertension. 5. Hyperlipidemia. 6. History of coronary artery disease, status post angioplasty. PLAN: MAR reviewed. We will continue the patient on current medications. We will follow up the patient in a.m. Lillian Gan MD
[2018-09-01] MEDS: Oxycodone/Acetaminophen 5/325 mg Tab PO PRN ×3 (03:56→21:25)
[2018-09-01] MEDS: Enoxaparin 40 mg Syringe SC SCH (05:34)
[2018-09-01] MEDS: POLYETHYLENE GLYCOL 3350 17 GM/Dose PACKET PO SCH ×2 (10:23→17:14)
--- NOTE | 2018-09-01 16:03 | PN ---
DATE: 09/01/2018 SUBJECTIVE: The patient is an 82-year-old, seen and examined, doing very well, eating and tolerating. She has been her blanket, complain of pain upon getting out of bed or going to bed, otherwise doing well, eating and tolerating. PHYSICAL EXAMINATION: VITAL SIGNS: She is afebrile. Pulse 74, respirations 20, blood pressure 130/76. LUNGS: Bilateral fair airflow. No rhonchi or crackles. HEART: S1 and S2 audible. ABDOMEN: Soft. Nontender. No rebound. No guarding. NEUROLOGIC: The patient is awake, alert, oriented, able to communicate, ambulatory. ASSESSMENT: 1. Status post cholelithiasis and acute cholecystitis, status post laparoscopic cholecystectomy. 2. Chronic lymphocytic leukemia. 3. Hypertension. 4. Coronary artery disease, status post angioplasty last year. PLAN: Currently, the patient is off of antibiotics. We will continue current medical management that include Colace and aspirin. She is on metoprolol. She is on DVT prophylaxis. She is on MiraLax. We will give pain killer as needed. We will follow up. Lillian Gan MD
[2018-09-02] MEDS: Oxycodone/Acetaminophen 5/325 mg Tab PO PRN (05:29)
[2018-09-02] MEDS: Enoxaparin 40 mg Syringe SC SCH (05:30)
[2018-09-02] MEDS: POLYETHYLENE GLYCOL 3350 17 GM/Dose PACKET PO SCH ×2 (09:54→17:41)
--- NOTE | 2018-09-02 16:09 | PN ---
DATE: 09/02/2018 SUBJECTIVE: The patient is an 82-year-old, seen and examined, doing well. her blanker and had some pain in the right side of the neck and shoulder radiating through the arm, otherwise, doing well. PHYSICAL EXAMINATION: VITAL SIGNS: She is afebrile. Pulse 71, respirations 20, blood pressure 136/72. LUNGS: Bilateral fair airflow. No rhonchi or crackles. HEART: S1 and S2 audible. ABDOMEN: Soft. Nontender. No rebound. No guarding. NEUROLOGIC: The patient is awake, alert, oriented and communicate. ASSESSMENT: 1. Cholelithiasis. 2. Acute cholecystitis, status post laparoscopic cholecystectomy. 3. Hypertension. 4. Hyperlipidemia. 5. Coronary artery disease, status post angioplasty. PLAN: We will start the patient on Mobic. I will discontinue Lovenox. ambulatory. There is no more need for DVT prophylaxis and continue beta-lamont, continue on aspirin and Plavix. We will followup the patient in the a.m. Lillian Gan MD
[2018-09-03] MEDS: POLYETHYLENE GLYCOL 3350 17 GM/Dose PACKET PO SCH ×2 (10:18→17:15)
--- NOTE | 2018-09-03 16:40 | PN ---
DATE: 09/03/2018 SUBJECTIVE: The patient is an 82-year-old seen and examined, doing well, eating and tolerating. No more chest pain. No shoulder pain and ambulating. PHYSICAL EXAMINATION: VITAL SIGNS: The patient is afebrile, pulse 72, respiration 20 and blood pressure 126/68. LUNGS: Bilateral fair air flow. No rhonchi or crackle. HEART: S1 and S2, audible. ABDOMEN: Soft and nontender. No rebound. No guarding. NEUROLOGIC: The patient is awake, alert, oriented and communicative. Moves all extremities. ASSESSMENT: 1. Status post laparoscopic cholecystectomy. 2. Chronic lymphocytic leukemia. 3. Deconditioning, difficulty walking. PLAN: The patient is currently stable. We will discontinue her Zofran, discontinue her Mobic . The patent is being prepared to be discharge tomorrow morning. Lillian Gan MD
[2018-09-04] MEDS: POLYETHYLENE GLYCOL 3350 17 GM/Dose PACKET PO SCH (10:01)
[2018-09-04 10:03] VITALS: BP 128/76; PULSE 78
[2018-09-04 11:01] VITALS: RESP 20; TEMP 97.3; O2SAT 93
--- NOTE | 2018-09-04 18:18 | DS ---
HISTORY OF PRESENT ILLNESS: The patient is an 82-year-old, who came in with abdominal pain. She was found to have acute cholecystitis. The patient has been on Plavix for her angioplasty last year. She was treated conservatively. She was kept n.p.o. She was given IV antibiotic, IV fluid, and she was evaluated by surgeon after 7 days, stopping her Plavix. She underwent cholecystectomy. Postprocedure, she was transferred to TCU for rehab. She did very well. Her stay was uneventful and being discharged today. PHYSICAL EXAMINATION: GENERAL: Today, she is awake, alert, oriented, communicative. VITAL SIGNS: She is afebrile, pulse 70, respirations 20, blood pressure 128/76. LUNGS: Bilateral good airflow. No rhonchi or crackle. HEART: S1 and S2, audible. ABDOMEN: Soft and nontender. No rebound. No guarding. NEUROLOGICAL: She is awake, alert, oriented, communicative. LABORATORY DATA: There is no new lab available today. ASSESSMENT: 1. Cholelithiasis. 2. Status post acute cholecystitis, status post laparoscopic cholecystectomy. 3. Chronic lymphocytic leukemia. 4. Hypertension. 5. Hyperlipidemia. 6. Coronary artery disease, status post angioplasty. PLAN: So, the plan is, the patient is being discharged home in stable condition. She will resume her medications including aspirin, atorvastatin, Plavix, lisinopril, metoprolol, Evista and Norvasc. She will follow with her PMD and Surgeon as an outpatient. Lillian Gan MD
== END 2018-09-04 11:18 | disposition home or self-care (01) | DRG 556 ==
LOC: TRCU 15:49
PROVIDERS: ADMIT Internal Medicine; ATTEND Internal Medicine
PROC: F07Z9ZZ Gait Training/Functional Ambulation Treatment (ICD-10-PCS; principal; 2018-08-28)
PROC: F08Z4ZZ Home Management Treatment (ICD-10-PCS; 2018-08-28)
DX: R26.2 Difficulty in walking, not elsewhere classified (principal); K80.00 Calculus of gallbladder with acute cholecystitis without obstruction; C91.10 Chronic lymphocytic leukemia of B-cell type not having achieved remission; I25.10 Atherosclerotic heart disease of native coronary artery without angina pectoris; I10 Essential (primary) hypertension; E78.5 Hyperlipidemia, unspecified; Z90.49 Acquired absence of other specified parts of digestive tract; Z98.61 Coronary angioplasty status; Z79.02 Long term (current) use of antithrombotics/antiplatelets; Z79.82 Long term (current) use of aspirin; Z79.899 Other long term (current) drug therapy

== ENCOUNTER 2018-11-17 07:10 | Outpatient (CLI) | payer MEDICARE | END 2018-11-17 07:11 | disposition home or self-care (01) | LOC: CARDIO 07:10 ==